=== PATIENT | female | born 1960 | race American Indian/Alaskan Native ===

== ENCOUNTER 2017-07-28 07:08 | Emergency (ER) | payer OTHER ==
[2017-07-28] MEDS ORDERED: LIDOCAINE VISCOUS 2% PO ONE (09:51)
[2017-07-28] MEDS ORDERED: TORADOL IM ONE (09:51)
[2017-07-28] MEDS ORDERED: TYLENOL PO ONE (09:56)
--- NOTE | 2017-07-28 10:00 | Emergency Department Report ---
- General Chief Complaint: Upper Respiratory Infection Stated Complaint: FLU SX Time Seen by Provider: 07/28/17 09:38 Source: patient Mode of arrival: Ambulatory Limitations: No Limitations - History of Present Illness Initial Comments: This is a 56-year-old female nontoxic, well nourished in appearance, no acute signs of distress presents to the ED with c/o of fever, chills, frontal sinus pain, productive cough, rhinorrhea and nasal congestion 2 days. Patient describes productive cough as yellow mucus production. Patient denies any recent travels, long car rides, or recent hospital stays. Denies any calf pain or calf tenderness. Patient denies any hemoptysis, chest pain, shortness of breath, difficulty breathing, back pain, abdominal pain, pelvic pain, numbness, tingling, nausea or vomiting. Patient denies headache or stiff neck. Patient denies any allergies. Past medical history includes diabetes, arthritis and hypertension. MD Complaint: fever, cough, sore throat, rhinorrhea, nasal congestion, sinus pain -: days(s) (3) Severity: mild Severity scale (0 -10): 8 Quality: aching Consistency: constant Improves With: nothing Worsens With: nothing Associated Symptoms: fever, chills, headache (frontal sinus region), rhinorrhea , nasal congestion, sore throat, cough. denies: myalgias, diaphoresis, stiff neck, chest pain, shortness of breath, abdominal pain, nausea, vomiting, diarrhea, dysuria, rash, confusion, right sweats, weight loss, epistaxis, hoarseness, ear pain Treatments Prior to Arrival: none - Related Data Home Medications Medication Instructions Recorded Confirmed Last Taken Insulin NPH/Regular [NovoLIN 70/30] 35 unit SQ BIDDIAB 03/28/17 03/28/17 Lisinopril [Zestril] 40 mg PO DAILY 03/28/17 03/28/17 03/28/17 metFORMIN [Glucophage] 1,000 mg PO BID 03/28/17 03/28/17 03/28/17 Previous Rx's Medication Instructions Recorded Last Taken Type HYDROcodone/APAP 5-325 [[place] 1 each PO Q6HR PRN #12 tablet 03/29/17 Unknown Rx 5/325] Benzonatate [Tessalon Perle] 100 mg PO Q6H PRN #20 capsule 07/28/17 Unknown Rx Ibuprofen [Motrin] 600 mg PO Q8H PRN #30 tablet 07/28/17 Unknown Rx Nystas/Diphen/Xyl Visc/Mylanta 30 ml MM Q4H PRN 10 Days ml 07/28/17 Unknown Rx [Magic Mouthwash] Oseltamivir [Tamiflu] 75 mg PO BID #14 cap 07/28/17 Unknown Rx Allergies Allergy/AdvReac Type Severity Reaction Status Date / Time No Known Allergies Allergy Verified 05/05/15 11:11 ED Review of Systems ROS: Stated complaint: FLU SX Other details as noted in HPI Constitutional: chills, fever Eyes: denies: eye pain, eye discharge, vision change ENT: throat pain. denies: ear pain Respiratory: cough. denies: shortness of breath, wheezing Cardiovascular: denies: chest pain, palpitations Endocrine: no symptoms reported Gastrointestinal: denies: abdominal pain, nausea, diarrhea Genitourinary: denies: urgency, dysuria, discharge Musculoskeletal: denies: back pain, joint swelling, arthralgia Skin: denies: rash, lesions Neurological: denies: headache, weakness, paresthesias Psychiatric: denies: anxiety, depression Hematological/Lymphatic: denies: easy bleeding, easy bruising ED Past Medical Hx - Past Medical History Previous Medical History?: Yes Hx Hypertension: Yes (takes lisinopril 10mg qday) Hx Diabetes: Yes (take metformin 1000mg bid and NPH 20 units BID) Hx Arthritis: Yes Additional medical history: HIGH CHOLESTEROL - Surgical History Past Surgical History?: Yes Additional Surgical History: TUBAL LIGATION. POLYPS FROM THROAT REMOVED - Social History Smoking Status: Never Smoker Substance Use Type: Alcohol - Medications Home Medications: Home Medications Medication Instructions Recorded Confirmed Last Taken Type Insulin NPH/Regular [NovoLIN 70/30] 35 unit SQ BIDDIAB 03/28/17 03/28/17 History Lisinopril [Zestril] 40 mg PO DAILY 03/28/17 03/28/17 03/28/17 History metFORMIN [Glucophage] 1,000 mg PO BID 03/28/17 03/28/17 03/28/17 History HYDROcodone/APAP 5-325 [[place] 1 each PO Q6HR PRN #12 tablet 03/29/17 Unknown Rx 5/325] Benzonatate [Tessalon Perle] 100 mg PO Q6H PRN #20 capsule 07/28/17 Unknown Rx Ibuprofen [Motrin] 600 mg PO Q8H PRN #30 tablet 07/28/17 Unknown Rx Nystas/Diphen/Xyl Visc/Mylanta 30 ml MM Q4H PRN 10 Days ml 07/28/17 Unknown Rx [Magic Mouthwash] Oseltamivir [Tamiflu] 75 mg PO BID #14 cap 07/28/17 Unknown Rx ED Physical Exam - General Limitations: No Limitations General appearance: alert, in no apparent distress - Head Head exam: Present: atraumatic, normocephalic, normal inspection - Eye Eye exam: Present: normal appearance, PERRL, EOMI. Absent: scleral icterus, conjunctival injection, nystagmus, periorbital swelling, periorbital tenderness Pupils: Present: normal accommodation - ENT ENT exam: Present: mucous membranes moist, TM's normal bilaterally, normal external ear exam - Expanded ENT Exam Expanded Ear exam: Present: normal external inspection Mouth exam: Present: normal external inspection, tongue normal. Absent: drooling, trismus, muffled voice, tongue elevation, laceration Teeth exam: Present: normal inspection Throat exam: Positive: tonsillar erythema, other (Uvula midline. No abscess or swelling noted. ). Negative: tonsillomegaly, tonsillar exudate, R peritonsillar mass, L peritonsillar mass - Neck Neck exam: Present: normal inspection, full ROM. Absent: tenderness, meningismus, lymphadenopathy, thyromegaly - Respiratory Respiratory exam: Present: normal lung sounds bilaterally. Absent: respiratory distress, wheezes, rales, rhonchi, stridor, chest wall tenderness, accessory muscle use, decreased breath sounds, prolonged expiratory - Cardiovascular Cardiovascular Exam: Present: regular rate, normal rhythm, normal heart sounds. Absent: bradycardia, irregular rhythm, systolic murmur, diastolic murmur, rubs , gallop - GI/Abdominal GI/Abdominal exam: Present: soft, normal bowel sounds. Absent: distended, tenderness, guarding, rebound, rigid, diminished bowel sounds - Rectal Rectal exam: Present: deferred - Extremities Exam Extremities exam: Present: normal inspection, full ROM, normal capillary refill. Absent: tenderness, pedal edema, joint swelling, calf tenderness - Back Exam Back exam: Present: normal inspection, full ROM. Absent: tenderness, CVA tenderness (R), CVA tenderness (L), muscle spasm, paraspinal tenderness, vertebral tenderness, rash noted - Neurological Exam Neurological exam: Present: alert, oriented X3, CN II-XII intact, normal gait, reflexes normal - Psychiatric Psychiatric exam: Present: normal affect, normal mood - Skin Skin exam: Present: warm, dry, intact, normal color. Absent: rash - Other Other exam information: Negative Frontal sinus tenderness. ED Course Vital Signs 07/28/17 07/28/17 07/28/17 07:23 10:27 10:28 Temperature 100.4 F H Pulse Rate 90 Respiratory 16 18 18 Rate Blood Pressure 145/75 O2 Sat by Pulse 95 Oximetry - Reevaluation(s) Reevaluation #1: 07/28/17 10:01 Patient is speaking in full sentences with no signs of distress noted. ED Medical Decision Making - Medical Decision Making This is a 56-year-old female that presents with influenza B. Patient is stable and was examined by me. Chest x-ray has been obtained and dictated by radiologist within normal limits. Patient is notified of x-ray results with noted by the patient. Patient received lidocaine viscous which patient stated symptoms of sore throat is improving and subsided. Positive influenza B swab. Negative strep swab. Patient is discharge with tamiflu. Patient also received Tylenol and 30 mg IM of Toradol. Vital signs stable and patient is afebrile and normal heart rate prior to discharge. Patient was instructed Follow-up with a primary care doctor in 3-5 days or if symptoms worsen and continue return to emergency room as soon as possible. At time time of discharge, the patient does not seem toxic or ill in appearance. No acute signs of distress noted. Patient agrees to discharge treatment plan of care. No further questions noted by the patient. Critical care attestation.: If time is entered above; I have spent that time in minutes in the direct care of this critically ill patient, excluding procedure time. ED Disposition Clinical Impression: Influenza B Disposition: -01 TO HOME OR SELFCARE Is pt being admited?: No Does the pt Need Aspirin: No Condition: Stable Instructions: Oseltamivir (By mouth), Influenza (ED) Additional Instructions: Follow-up with a primary care doctor in 3-5 days or if symptoms worsen and continue return to emergency room as soon as possible. Increase rest and hydration as much as possible. Take Motrin as prescribed during fever episode. Prescriptions: Benzonatate [Tessalon Perle] 100 mg PO Q6H PRN #20 capsule PRN Reason: Cough Ibuprofen [Motrin] 600 mg PO Q8H PRN #30 tablet PRN Reason: Fever Nystas/Diphen/Xyl Visc/Mylanta [Magic Mouthwash] 30 ml MM Q4H PRN 10 Days ml PRN Reason: Sore Throat Oseltamivir [Tamiflu] 75 mg PO BID #14 cap Referrals: PRIMARY CAREMD [Primary Care Provider] - 3-5 Days KIKA LIN MD [Staff Physician] - 3-5 Days [facility] [Outside] - 3-5 Days [facility] [Outside] - 3-5 Days Forms: Work/School Release Form(ED)
--- NOTE | 2017-07-28 10:10 | XRay Report ---
ROUTINE CHEST, TWO VIEWS: HISTORY: Cough. The trachea, heart, mediastinal contour, lung hamilton and bony thorax are unremarkable. IMPRESSION: Unremarkable chest x-ray.
[2017-07-28 11:48] VITALS: BP 124/78
== END 2017-07-28 11:47 | disposition home or self-care (01) ==
LOC: ED 07:08
DX: J11.1 Influenza due to unidentified influenza virus with other respiratory manifestations (principal); I10 Essential (primary) hypertension; E11.9 Type 2 diabetes mellitus without complications; M19.90 Unspecified osteoarthritis, unspecified site; E78.00 Pure hypercholesterolemia, unspecified; Z79.4 Long term (current) use of insulin
CPT/HCPCS: 71046; 87116; 87400; 87430; 96372; 99283; J1885

== ENCOUNTER 2017-11-18 10:45 | Day surgery (SDC) | payer OTHER ==
[2017-11-18] MEDS ORDERED: NACL 0.9% 1000 ML 1,000 ML ONE (11:45)
[2017-11-18] MEDS ORDERED: HumuLIN R IV ONE (12:36)
--- NOTE | 2017-11-18 12:36 | Anesthesia Consultation ---
Anesthesia Consult and Med Hx Date of service: 11/18/17 - Airway Anesthetic Teeth Evaluation: Good ROM Head & Neck: Adequate Mental/Hyoid Distance: Adequate Mallampati Class: Class III Intubation Access Assessment: Possibly Difficult - Pre-Operative Health Status ASA Pre-Surgery Classification: ASA3 Proposed Anesthetic Plan: MAC - Cardiovascular System Hx Hypertension: Yes - Gastrointestinal Hx Gastroesophageal Reflux Disease: Yes - Endocrine Hx Non-Insulin Dependent Diabetes: Yes - Other Systems Hx Obesity: Yes (BMI 35.9)
--- NOTE | 2017-11-18 12:36 | Anesthesia Day of Surgery ---
Anesthesia Day of Surgery - Day of Surgery Patient Examined: Yes Patient H&P Reviewed: Yes Patient is NPO: Yes
[2017-11-18] MEDS ORDERED: HumuLIN R SUB-Q ONE (12:40)
[2017-11-18] MEDS ORDERED: NACL 0.9% 1000 ML 1,000 ML IV SCH (13:00)
[2017-11-18] MEDS ORDERED: XYLOCAINE MPF 2% ONE (13:00)
[2017-11-18] MEDS ORDERED: DIPRIVAN 10 MG/ML IV ONE ×8 (13:08→14:29)
--- NOTE | 2017-11-18 13:19 | Post Anesthesia Evaluation ---
- Post Anesthesia Evaluation Patient Participated: Yes Airway Patent: Yes Stable Respiratory Function: Yes Nausea/Vomiting: No Temp > 96.8F: Yes Pain Manageable: Yes Adequeate Hydration: Yes Anesthesia Complications: No
[2017-11-18] MEDS ORDERED: ADRENALIN ONE (13:46)
[2017-11-18] MEDS ORDERED: VERSED IV ONE (14:29)
[2017-11-18] MEDS ORDERED: ADRENALINE P/F IV ONE (14:30)
[2017-11-18] MEDS ORDERED: WATER FOR IRRIG STERILE ONE (14:38)
[2017-11-18] MEDS ORDERED: ANCEF/STERILE WATER 2 GM/20 ML 2 GM/20 ML SYRINGE IV ONE (14:50)
[2017-11-18] MEDS ORDERED: ZOFRAN IV ONE (15:27)
[2017-11-18 15:58] VITALS: BP 145/75
--- NOTE | 2017-11-18 16:51 | Operative Report ---
Operative Report Operative Report: Date: 11/18/2017 Procedure: Colonoscopy with multiple endoscopic mucosal resections, ( with submucosal injection, multiple snare polypectomies, multiple Hemoclip applications,) polyp ablation hot biopsy polypectomy using avulsion technique. Attending physician: Kirill Harrison MD Core Inspector: Kirill Harrison MD Indication: Patient is a 57-year-old female who presents for screening colonoscopy. A colonoscopy serves to evaluate patient for colorectal cancer screening. This is patient's index colonoscopy. Consent: Informed consent was obtained after advising the patient and family regarding nature of this procedure, its indications, potential benefits as well as possible complications including but not limited to bleeding perforation and adverse reaction to medication, infection as well as other cardiopulmonary complications. An informed written and verbal consent was then obtained after due opportunity was provided for questions and answers. Monitoring: Patient was monitored continuously with pulse oximetry and electrocardiographic recordings as well as blood pressure recordings. Vital signs remained stable throughout this procedure with no untoward events. Preoperative assessment: Patient was assessed immediately prior to this procedure for capacity to tolerate monitored anesthesia care and moderate sedation as well as general anesthesia. Patient's ASA classification is 2, Mallampati class is 2, Hyomental distance is 3. Instrument: Cantimer video colonoscope Medications: Propofol given intravenously in divided doses. For details please refer to anesthesia records. Description of procedure: Patient was placed in the left lateral decubitus position after achieving sedation, a digital rectal examination was performed following which the colonoscope was introduced into the anal verge and advanced to the cecum which was identified by the cecal valve, the appendiceal orifice, as well as by the cecal strap and direct transillumination. The colonoscope was subsequently withdrawn with careful inspection of all mucosal surfaces. Patient tolerated this procedure well and was subsequently taken to the recovery room. The preparation was fair. The following findings were noted. Findings: Beginning in the cecum, Patient had a 2 cm flat polyp with a mucous patch and endoscopic characteristics of possible serrated adenoma. This was elevated with submucosal injection of eleview, (hetastarch), it was then removed by endoscopic mucosal resection using snare electrocautery. The defect in the submucosal space, was then closed with 2 hemoclips. Adjacent to this on the opposite end of the cecum and extending into the distal aspect of the ascending colon, was a multilobulated flat polyp that had a serpiginous splay, over a wide margin. Endoscopically, this measured about 3 cm. It was injected sequentially with eleview, to elevate it. Additionally, 1:[id number] epinephrine injection was also injected into the base because of some oozing of blood. Sequentially, the polyp was then removed by endoscopic mucosal resection with snare electrocautery. The exposed submucosal space was further ablated at the edges. Additionally, argon plasma coagulation was then applied over the polypectomy site. The edges of the polyp, were further treated endoscopically with a hot biopsy forcep with avulsion, of any residual or suspected polyp piece. After complete removal and ablation of the site, a large submucosal defect was then exposed. This was then closed sequentially, using multiple hemoclips. 5 clips were applied over this site to close the defect. Also, in the ileocecal valve,/cecum there was a 1.5 cm polyp again which was flat. This was injected submucosally with normal saline and removed by snare electrocautery. The edges of the polyp with further avulsed. In addition there was an adjacent flat cecal smaller polyp. This measured approximately 1 cm. It was removed by hot biopsy forceps polypectomy, using the avulsion technique. There was an ascending colon polyp measuring approximately 1.5 cm. It was semi-pedunculated. It was removed by snare electrocautery and retrieved. There was an adjacent sessile 1 cm polyp in the ascending colon which again was removed by snare electrocautery and retrieved. There was some scattered diverticula seen in the ascending colon and descending colon and the sigmoid colon. There are some scattered retained stool seen in the sigmoid colon as well and also in the descending colon. The procedure was technically difficult and prolonged. Duration of the procedure is greater than 2 hours. On the retroflex view at the anal verge, patient had internal hemorrhoids. Impression: Technically difficult long procedure. Multiple cecal polyps, status post endoscopic mucosal resection, (submucosal injection of eleview , and subsequent snare polypectomy with closure of submucosal defect which multiple hemoclips.) Ablation of polyp site and Hemoclip application. Cecal polyp status post hot biopsy polypectomy with avulsion technique. Multiple ascending colon polyps status post snare polypectomy. Diverticulosis of the colon. Internal hemorrhoids. Plan: Follow pathology report. Because of procedure was deemed high risk given the endoscopic intervention, patient was given antibiotics intraprocedure. Patient further advised to stay on clear liquid diet today. High-fiber diet. A repeat colonoscopy should be done in 3-6 months although if pathology suggests invasive cancer, patient will require a right hemicolectomy.
--- NOTE | 2017-11-18 19:11 | Discharge Summary ---
Short Stay Discharge Plan Activity: advance as tolerated Weight Bearing Status: Weight Bear as Tolerated Diet: clear liquids Additional Instructions: Post Sedation D/C Instructions When you return home you may resume your regular diet unless otherwise directed. -Go directly home from the hospital and rest quietly. You may resume normal activities tomorrow. -Do NOT drive, return to work, operate any machinery or make any important personal or business decisions today -Do NOT drink any alcohol or take nerve or sleeping drugs. They add to the effects of the medicine still present in your body. CALL FOR F/U APPT. FOLLOW SURGEON INSTRUCTIONS. Follow up with: PRIMARY CARE [Primary Care Provider] - 7 Days
== END 2017-11-18 16:00 | disposition home or self-care (01) ==
LOC: GIO 10:45
PROVIDERS: ATTEND Internal Medicine Gastroenterology
DX: Z12.11 Encounter for screening for malignant neoplasm of colon (principal); D12.0 Benign neoplasm of cecum; D12.2 Benign neoplasm of ascending colon; K57.30 Diverticulosis of large intestine without perforation or abscess without bleeding; K21.9 Gastro-esophageal reflux disease without esophagitis; K64.8 Other hemorrhoids; K59.00 Constipation, unspecified; I10 Essential (primary) hypertension; E11.9 Type 2 diabetes mellitus without complications; E66.9 Obesity, unspecified; Z68.35 Body mass index [BMI] 35.0-35.9, adult; Z79.899 Other long term (current) drug therapy
CPT/HCPCS: 45381; 45384; 45385; 45390; 82962; 88305; J0171; J0690; J2250; J2405; J2704; J7030; J1815

== ENCOUNTER 2018-12-29 08:36 | Day surgery (SDC) | payer OTHER ==
[~2018-12-29 08:36] MED LIST: LACTATED RINGERS 1,000 ML IV SCH; VERSED IV NR
[2018-12-29] MEDS ORDERED: TRANSDERM-SCOP TD NR (09:00)
[2018-12-29] MEDS ORDERED: HumuLIN R IV NR (09:00)
[2018-12-29] MEDS ORDERED: DIPRIVAN 10 MG/ML IV ONE (09:59)
[2018-12-29] MEDS ORDERED: ZOFRAN ONE (10:07)
[2018-12-29] MEDS ORDERED: XYLOCAINE MPF 2% ONE (10:07)
[2018-12-29] MEDS ORDERED: DECADRON ONE (10:07)
[2018-12-29] MEDS ORDERED: DILAUDID IV PRN (10:28)
--- NOTE | 2018-12-29 10:30 | Anesthesia Day of Surgery ---
Anesthesia Day of Surgery - Day of Surgery Patient Examined: Yes Patient H&P Reviewed: Yes Patient is NPO: Yes
--- NOTE | 2018-12-29 10:30 | Anesthesia Consultation ---
Anesthesia Consult and Med Hx Date of service: 12/29/18 - Airway Anesthetic Teeth Evaluation: Good ROM Head & Neck: Adequate Mental/Hyoid Distance: Adequate Mallampati Class: Class III Intubation Access Assessment: Possibly Difficult - Pulmonary Exam CTA: Yes - Cardiac Exam Cardiac Exam: RRR - Pre-Operative Health Status ASA Pre-Surgery Classification: ASA3 Proposed Anesthetic Plan: General - Pulmonary Hx Smoking: No Hx Asthma: Yes - Cardiovascular System Hx Hypertension: Yes Hx Heart Attack/AMI: No - Central Nervous System CVA: No - Gastrointestinal Hx Gastroesophageal Reflux Disease: Yes (controlled) - Endocrine Hx Renal Disease: No Hx Liver Disease: No Hx Insulin Dependent Diabetes: Yes Hx Thyroid Disease: No - Other Systems Hx Obesity: Yes - Additional Comments Anesthesia Medical History Comments: Hx PONV.
[2018-12-29] MEDS ORDERED: SILVER NITRATE TP ONE (10:53)
[2018-12-29] MEDS ORDERED: SUBLIMAZE ONE (11:17)
[2018-12-29] MEDS ORDERED: TORADOL ONE (11:39)
[2018-12-29] MEDS ORDERED: NACL 0.9% IR ONE (11:41)
--- NOTE | 2018-12-29 13:00 | Operative Report ---
Operative Report Operative Report: Preoperative diagnosis: 1. Postmenopausal uterine bleeding. 2. Thickened endometrium. Postoperative diagnosis: same as preoperative diagnosis. Procedure: 1. Hysteroscopy. 2. D&C Surgeon: Dr. Mason Director Of Quality: none Anesthesia: IV sedation with MAC. EBL: minimal IVF: RL 1 liter Complications: none Procedure details: The risks, benefits, and alternatives of the procedure were discussed in detail with the patient which included but not limited to infection, hemorrhage requiring blood transfusion, and uterine perforation. The patient expressed understanding, her questions answered, and she gave informed consent. The patient was taken to the operating room with an IVF infusing Ringer's lactate. In the operating room, she was placed in the dorsal supine position and given IV sedation with MAC. Then, she was placed on the stirrups in a dorsal lithotomy position. The perineum vagina and cervix were washed and she was prepared and draped in the usual sterile fashion. Examination under anesthesia revealed normal external genitalia and vagina. The cervix was closed, long, posterior with mild bleeding at the os. The uterus was 8-week size, anteverted, mobile, the adnexae were nonpalpable. A weighted speculum was placed placed on the posterior vaginal wall. The anterior lip of the cervix was grasped with a single-tooth tenaculum. Endocervical curettage was done. The cervical os was dilated and the hysteroscope was introduced into the uterine cavity. It revealed thickened endometrial lining. The ostia were visualized. The hysteroscope was removed from the uterine cavity. A gentle curettage was performed until a gritty texture was noticed. The specimen which consisted of ECC, EMC was sent to pathology. The instruments were removed from the cervix and vagina. The count of laps, needles, sponges, and instrument were correct 2. The patient tolerated the procedure well. She was awakened from the anesthesia and taken to the recovery room in a stable condition.
[2018-12-29 13:51] VITALS: BP 138/80
== END 2018-12-29 13:30 | disposition home or self-care (01) ==
LOC: OR 08:36
PROVIDERS: ATTEND Obstetrics & Gynecology
DX: N95.0 Postmenopausal bleeding (principal); R93.89 Abnormal findings on diagnostic imaging of other specified body structures; E11.9 Type 2 diabetes mellitus without complications; I10 Essential (primary) hypertension; E78.00 Pure hypercholesterolemia, unspecified; K21.9 Gastro-esophageal reflux disease without esophagitis; M19.90 Unspecified osteoarthritis, unspecified site; J45.909 Unspecified asthma, uncomplicated; E66.9 Obesity, unspecified; Z98.51 Tubal ligation status; Z98.890 Other specified postprocedural states; Z79.899 Other long term (current) drug therapy; Z79.84 Long term (current) use of oral hypoglycemic drugs; Z79.4 Long term (current) use of insulin
CPT/HCPCS: 58558; 82962; 88305; 88341; 88342; A4217; J1100; J1885; J2405; J2704; J3010; J7120; J1815

== ENCOUNTER 2019-01-24 10:30 | Emergency (ER) | payer SELFPAY ==
[2019-01-24 10:36] VITALS: BP 123/64
--- NOTE | 2019-01-24 10:54 | Emergency Department Report ---
<GIUSEPPE WILEY T - Last Filed: 01/24/19 11:47> ED Lower Extremity HPI - General Chief Complaint: Extremity Injury, Lower Stated Complaint: LT KNEE INJURY Time Seen by Provider: 01/24/19 10:51 Source: patient Mode of arrival: Ambulatory Limitations: No Limitations - History of Present Illness Initial Comments: Patient reports having problems left knee but had a trip and fall landing on that knee a couple days ago worse pain. Pain worsens with movement and improves with rest though she states that he is given out on her couple times. Denies any distal numbness or tingling. Complaint: knee injury -: Sudden, days(s) (3) Injury: Knee: Left Type of Injury: blunt Severity: moderate Severity scale (0 -10): 5 Improves With: immobilization Worsens With: weight bearing Context: fall Associated Symptoms: able to partially bear weight. denies: numbness, tingling - Related Data Home Medications Medication Instructions Recorded Confirmed Last Taken Insulin NPH/Regular [NovoLIN 70/30] 35 unit SQ BIDDIAB 03/28/17 12/29/18 12/28/18 21:00 Lisinopril [Zestril] 40 mg PO DAILY 03/28/17 12/29/18 12/28/18 21:00 metFORMIN [Glucophage] 1,000 mg PO BID 03/28/17 12/29/18 12/28/18 21:00 Previous Rx's Medication Instructions Recorded Last Taken Type HYDROcodone/APAP 5-325 [Jakin 1 each PO Q6HR PRN #12 tablet 03/29/17 12/28/18 21:00 Rx 5/325] Benzonatate [Tessalon Perle] 100 mg PO Q6H PRN #20 capsule 07/28/17 12/28/18 21:00 Rx Ibuprofen [Motrin] 600 mg PO Q8H PRN #30 tablet 07/28/17 12/28/18 21:00 Rx Nystas/Diphen/Xyl Visc/Mylanta 30 ml MM Q4H PRN 10 Days ml 07/28/17 12/28/18 21:00 Rx [Magic Mouthwash] Oseltamivir [Tamiflu] 75 mg PO BID #14 cap 07/28/17 12/28/18 21:00 Rx Benzonatate [Tessalon Perles] 100 mg PO Q8HR PRN #20 capsule 07/19/18 12/28/18 21:00 Rx Ondansetron [Zofran Odt] 4 mg PO Q8HR PRN #20 tab.rapdis 07/19/18 12/28/18 21:00 Rx Naproxen [Naprosyn] 500 mg PO BID #20 tablet 01/24/19 Unknown Rx Allergies Allergy/AdvReac Type Severity Reaction Status Date / Time No Known Allergies Allergy Verified 05/05/15 11:11 ED Review of Systems Comment: All other systems reviewed and negative Musculoskeletal: as per HPI ED Past Medical Hx - Past Medical History Previous Medical History?: Yes Hx Hypertension: Yes Hx Heart Attack/AMI: No Hx Diabetes: Yes Hx GERD: Yes Hx Liver Disease: No Hx Renal Disease: No Hx Arthritis: Yes Hx Asthma: Yes Additional medical history: HIGH CHOLESTEROL - Surgical History Past Surgical History?: Yes Additional Surgical History: TUBAL LIGATION. POLYPS FROM THROAT REMOVED - Social History Smoking Status: Never Smoker - Medications Home Medications: Home Medications Medication Instructions Recorded Confirmed Last Taken Type Insulin NPH/Regular [NovoLIN 70/30] 35 unit SQ BIDDIAB 03/28/17 12/29/18 12/28/18 21:00 History Lisinopril [Zestril] 40 mg PO DAILY 03/28/17 12/29/18 12/28/18 21:00 History metFORMIN [Glucophage] 1,000 mg PO BID 03/28/17 12/29/18 12/28/18 21:00 History HYDROcodone/APAP 5-325 [Jakin 1 each PO Q6HR PRN #12 tablet 03/29/17 12/29/18 12/28/18 21:00 Rx 5/325] Benzonatate [Tessalon Perle] 100 mg PO Q6H PRN #20 capsule 07/28/17 12/28/18 21:00 Rx Ibuprofen [Motrin] 600 mg PO Q8H PRN #30 tablet 07/28/17 12/29/18 12/28/18 21:00 Rx Nystas/Diphen/Xyl Visc/Mylanta 30 ml MM Q4H PRN 10 Days ml 07/28/17 12/29/18 12/28/18 21:00 Rx [Magic Mouthwash] Oseltamivir [Tamiflu] 75 mg PO BID #14 cap 07/28/17 12/29/18 12/28/18 21:00 Rx Benzonatate [Tessalon Perles] 100 mg PO Q8HR PRN #20 capsule 07/19/18 12/28/18 21:00 Rx Ondansetron [Zofran Odt] 4 mg PO Q8HR PRN #20 tab.rapdis 07/19/18 12/29/18 12/28/18 21:00 Rx Naproxen [Naprosyn] 500 mg PO BID #20 tablet 01/24/19 Unknown Rx ED Physical Exam - General Limitations: No Limitations General appearance: alert, in no apparent distress - Head Head exam: Present: atraumatic, normocephalic - Eye Eye exam: Present: normal appearance - ENT ENT exam: Present: mucous membranes moist - Neck Neck exam: Present: normal inspection - Respiratory Respiratory exam: Absent: respiratory distress - Cardiovascular Cardiovascular Exam: Absent: systolic murmur, diastolic murmur, rubs, gallop - Extremities Exam Extremities exam: Present: normal inspection, full ROM, tenderness (L knee), normal capillary refill, other (CMS intact) - Back Exam Back exam: Present: normal inspection - Neurological Exam Neurological exam: Present: alert, oriented X3 - Psychiatric Psychiatric exam: Present: normal affect, normal mood - Skin Skin exam: Present: warm, dry, intact, normal color. Absent: rash ED Lower Extremity MDM - Radiology Data Radiology results: report reviewed small effusion degen change no fx - Medical Decision Making knee injury no fx pily applied fu ortho - Differential Diagnosis contusion, sprain, fx ED Disposition Clinical Impression: Knee pain, acute Disposition: DC-01 TO HOME OR SELFCARE Is pt being admited?: No Condition: Good Instructions: Arthralgia (ED) Prescriptions: Naproxen [Naprosyn] 500 mg PO BID #20 tablet Referrals: HUMA SEVILLA MD [Staff Physician] - 3-5 Days Time of Disposition: 11:49 <NANCY OSEI - Last Filed: 02/12/19 05:56> ED Review of Systems ROS: Stated complaint: LT KNEE INJURY Other details as noted in HPI ED Course Vital Signs 01/24/19 10:35 Temperature 98 F Pulse Rate 71 Respiratory 20 Rate Blood Pressure 123/64 O2 Sat by Pulse 98 Oximetry Critical care attestation.: If time is entered above; I have spent that time in minutes in the direct care of this critically ill patient, excluding procedure time. ED Disposition Is pt being admited?: No
--- NOTE | 2019-01-24 11:43 | XRay Report ---
Left knee 4 views INDICATION: Left knee pain following injury IMPRESSION: Small left knee effusion. No fracture or subluxation. Moderate to severe tricompartmental degenerative changes. Signer Name: Leighton Suresh MD Signed: 01/24/2019 11:39 AM Workstation Name: [id number]
== END 2019-01-24 12:11 | disposition home or self-care (01) ==
LOC: ED 10:30
DX: M25.562 Pain in left knee (principal); I10 Essential (primary) hypertension; E11.9 Type 2 diabetes mellitus without complications; K21.0 Gastro-esophageal reflux disease with esophagitis; M19.90 Unspecified osteoarthritis, unspecified site; E78.00 Pure hypercholesterolemia, unspecified; J45.909 Unspecified asthma, uncomplicated; Z98.51 Tubal ligation status; Z79.4 Long term (current) use of insulin; Z79.899 Other long term (current) drug therapy; W01.0XXA Fall on same level from slipping, tripping and stumbling without subsequent striking against object, initial encounter; Y93.89 Activity, other specified; Y92.89 Other specified places as the place of occurrence of the external cause; Y99.8 Other external cause status
CPT/HCPCS: 99283

== ENCOUNTER 2019-03-05 06:33 | Inpatient (IN) | payer OTHER ==
--- NOTE | 2019-03-02 10:19 | Anesthesia Consultation ---
Anesthesia Consult and Med Hx Date of service: 03/05/19 - Airway Anesthetic Teeth Evaluation: Good ROM Head & Neck: Adequate Mental/Hyoid Distance: Adequate Mallampati Class: Class II Intubation Access Assessment: Probably Good - Pre-Operative Health Status ASA Pre-Surgery Classification: ASA3 Proposed Anesthetic Plan: General (pt request; refuses SAB) Nerve Block: AC - Pre-Anesthesia Comment Pre-Anesthesia Comments: PONV-pt requests scopolamine patch - Pulmonary Hx Smoking: No Hx Asthma: Yes (INHALER PRN) Hx Sleep Apnea: No (SALLY PRE SCREEN HIGH RISK) - Cardiovascular System Hx Hypertension: Yes (X 12 YRS) Hx Coronary Artery Disease: No (NST 5 years ago-ok per pt) Hx Heart Attack/AMI: No - Central Nervous System CVA: No - Gastrointestinal Hx Gastroesophageal Reflux Disease: Yes (controlled) - Endocrine Hx Renal Disease: No Hx Liver Disease: No Hx Insulin Dependent Diabetes: Yes Hx Non-Insulin Dependent Diabetes: Yes Hx Thyroid Disease: No - Other Systems Hx Cancer: No Hx Obesity: Yes
[2019-03-02 10:26] LABS: Basophils % (Auto) 0.6 % (0.0-1.8); Eosinophils # (Auto) 0.1 K/mm3 (0.0-0.4); Eosinophils % (Auto) 1.3 % (0.0-4.3); Hematocrit 35.7 % (30.3-42.9); Hemoglobin 11.9 gm/dl (10.1-14.3); Lymphocytes # (Auto) 1.3 K/mm3 (1.2-5.4); Lymphocytes % (Auto) 26.3 % (13.4-35.0); Mean Corpuscular HGB Conc 34 % (30-34); Mean Corpuscular Volume 80 fl (79-97); Monocytes # (Auto) 0.4 K/mm3 (0.0-0.8); Monocytes % (Auto) 8.7 % (0.0-7.3); Platelet Count 327 K/mm3 (140-440); Red Blood Count 4.43 M/mm3 (3.65-5.03); Red Cell Distribution Width 14.5 % (13.2-15.2)
[2019-03-02 10:36] LABS: INR 0.98 (0.87-1.13)
[2019-03-02 10:38] LABS: Partial Thromboplastin Time 29.2 Sec. (24.2-36.6)
[2019-03-02 11:00] LABS: Alanine Aminotransferase 19 units/L (7-56); Albumin 3.9 g/dL (3.9-5); BUN/Creatinine Ratio 25; Blood Urea Nitrogen 15 mg/dL (7-17); Calcium 9.5 mg/dL (8.4-10.2); Hemolysis Index 6
[~2019-03-05 06:33] MED LIST changes: +ANCEF/STERILE WATER 2 GM/20 ML 2 GM/20 ML SYRINGE IV NR; -LACTATED RINGERS 1,000 ML IV SCH; +NEURONTIN PO NR; +SUBLIMAZE IV PRN; +TRANSDERM-SCOP TD NR
[2019-03-05] MEDS ORDERED: SUBLIMAZE IV PRN (07:33)
--- NOTE | 2019-03-05 07:33 | Anesthesia Day of Surgery ---
Anesthesia Day of Surgery - Day of Surgery Patient Examined: Yes Patient H&P Reviewed: Yes Patient is NPO: Yes
[2019-03-05] MEDS ORDERED: TORADOL ONE (07:41)
[2019-03-05] MEDS ORDERED: TRANEXAMIC ACID ONE (07:41)
[2019-03-05] MEDS ORDERED: MORPHINE ONE (07:41)
[2019-03-05] MEDS ORDERED: NACL 0.9% 0 ML ONE (07:41)
[2019-03-05] MEDS ORDERED: MARCAINE 0.5% INFILTRATI ONE (07:42)
[2019-03-05] MEDS ORDERED: NACL 0.9% 100 ML ONE (07:42)
[2019-03-05] MEDS: LACTATED RINGERS 1,000 ML IV SCH (07:45)
[2019-03-05] MEDS ORDERED: MARCAINE-EPI 0.25%-1:200,000 INFILTRATI ONE (07:46)
[2019-03-05] MEDS ORDERED: ZEMURON IV ONE (07:50)
[2019-03-05] MEDS ORDERED: SUBLIMAZE ONE ×2 (07:50→11:03)
[2019-03-05] MEDS ORDERED: XYLOCAINE MPF 2% ONE (07:50)
[2019-03-05] MEDS ORDERED: ZOFRAN ONE (07:50)
[2019-03-05] MEDS ORDERED: ROBINUL ONE (07:50)
[2019-03-05] MEDS ORDERED: BLOXIVERZ ONE (07:50)
[2019-03-05] MEDS ORDERED: DIPRIVAN 10 MG/ML IV ONE (07:50)
[2019-03-05] MEDS ORDERED: DECADRON ONE (07:50)
[2019-03-05] MEDS ORDERED: BREVIBLOC IV ONE (08:36)
[2019-03-05] MEDS ORDERED: QUELICIN ONE (08:38)
[2019-03-05] MEDS ORDERED: WATER FOR IRRIG STERILE IR ONE (09:05)
[2019-03-05] MEDS ORDERED: NACL 0.9% IR ONE ×2 (09:05)
[2019-03-05] MEDS ORDERED: LACTATED RINGERS 1,000 ML ONE (10:38)
[2019-03-05] MEDS ORDERED: NORCO 5/325 PO PRN (11:49)
[2019-03-05] MEDS ORDERED: ZOFRAN IV PRN (11:49)
[2019-03-05] MEDS ORDERED: SODIUM CHLORIDE FLUSH SYRINGE 10 ML IV NR (12:00)
[2019-03-05] MEDS ORDERED: HumuLIN R ONE (12:01)
[2019-03-05] MEDS ORDERED: HumuLIN R SUB-Q ONE (12:02)
--- NOTE | 2019-03-05 12:04 | Procedure Note ---
Date of procedure: 03/05/19 Pre-op diagnosis: severe osteoarthritis left knee Post-op diagnosis: same Procedure: Left total knee arthroplasty Procedure The patient was brought to the or after the femoral nerve block and preoperative holding, she was placed in the or table in supine position following induction with Mac anesthesia the patient's left lower extremity was prepped and draped in the usual sterile manner. A timeout procedure was done to identify the patient and the correct operative site The leg was exsanguinated followed by insufflation of the pneumatic tourniquet to 300 mmHg. The midline incision was made centered over the patella this is taken down distally towards due to multiple medical incision was carried down sharply through skin and subcutaneous A medial parapatellar approach was used to gain access to the knee joint. The knee was flexed to 90 following routine examination revealed typical osteoarthritic changes where along the medial lateral compartments with peripheral osteophytes and bare bone in some places followinga large drill bit was used to enter the distal femoral canal following this the distal femoral cutting was applied approximately 8-9 mm of bone was resected next the attention was turned to the proximal tibia using the external alignment again 8-9 mL of proximal tibia was resected care was taken to protect the medial and lateral collateral ligaments the cruciate ligaments were sacrificed longus sizing of the femoral component was performed a # 5 femoral component was selected this was followed by application of the 4 in 1 cutting block care was taken to resect the anterior posterior as well as solution at this at this point in time the knee was sized A flexion and extension Of 10 mm was selected this was followed by application of the trial components the knee was then taken to or range of motion and was found to be stable following this fixation holes were applied to both the distal femur and proximal tibia care was taken to remove the medial lateral menisci as well as any excess bone and soft tissue debris the knee was then copiously irrigated using pulse lavage The bone cement was mixed the bone bleeding surfaces were wiped dry using sterile gauze for menisci tibial component was inserted using the cement technique the 10 mm polyethylene spacer was applied and secured this was followed by placement of the femoral component again excess cement was removed the knee was then held in flexion ostomy extens ion until the cement hardened following hardening of cement again a second look was performed and the residual soft tissue N cement debris were removed at this time the knee was then taken through a range of motion and was found to be stable next the medial patellar retinaculum incision was repaired using #1 Vicryl in interrupted [id number] suture pattern the subcutaneous and skin were closed in a routine manner. Dressings were applied the patient tolerated the procedure the retinal complications he was then taken to postanesthesia recovery Anesthesia: MAC, regional Surgeon: HUMA SEVILLA Conference Services Director: TIMOTHY FUENTES Estimated blood loss: 50-100ml Pathology: none Condition: stable Disposition: PACU
[2019-03-05] MEDS: MORPHINE IV PRN ×3 (13:45→21:57)
[2019-03-05] MEDS: HCTZ PO SCH (18:19)
[2019-03-05] MEDS ORDERED: APRESOLINE IV PRN (18:33)
--- NOTE | 2019-03-05 18:33 | Consultation ---
History of Present Illness - Reason for Consult Consult date: 03/05/19 Medical management of HTN, DM Requesting physician: HUMA HALL - History of Present Illness 58 YO Female with MO, DM, GERD, OA, HTN, CAD, Obesity Hypoventilation. Consult placed by Dr. Hall for medical management. Pt seen and evaluated upon arrival to her room. Pt resting in bed. Pt denies acute pain, shortness of breath, NVD, skin rash. Pt states that she feels comfortable, but is a little sleepy after the anesthesia. No reported nursing events. Past History Past Medical History: CAD, diabetes, GERD, hypertension Past Surgical History: total knee replacement Social history: single. denies: smoking, prescription drug abuse Family history: diabetes, hypertension Medications and Allergies Allergies Allergy/AdvReac Type Severity Reaction Status Date / Time No Known Allergies Allergy Verified 05/05/15 11:11 Home Medications Medication Instructions Recorded Confirmed Last Taken Type Insulin NPH/Regular [NovoLIN 70/30] 35 unit SQ QHS 03/28/17 03/05/19 03/04/19 09:00 History metFORMIN [Glucophage] 1,000 mg PO BID 03/28/17 03/05/19 03/04/19 09:00 History Albuterol Sulfate [Proventil Hfa] 2 puff IH PRN PRN 02/24/19 02/24/19 Unknown History AtorvaSTATin [Lipitor] 20 mg PO QHS 02/24/19 03/05/19 03/04/19 21:00 History Ibuprofen [Motrin] 800 mg PO PRN PRN 02/24/19 03/05/19 03/04/19 16:30 History Insulin NPH Hum/Reg Insulin Hm 40 unit SQ QAM 02/24/19 03/05/19 03/04/19 09:00 History [Relion Novolin 70-30 Vial] glipiZIDE [Glucotrol] 10 mg PO BID 02/24/19 03/05/19 03/04/19 18:00 History hydroCHLOROthiazide [HCTZ] 25 mg PO QDAY 02/24/19 03/05/19 03/04/19 09:00 History Active Meds: Active Medications Acetaminophen/Hydrocodone Bitart ([place] 5/325) 1 each PO Q6H PRN PRN Reason: Pain, Moderate (4-6) Last Admin: 03/05/19 16:07 Dose: 1 each Documented by: Celecoxib (Celebrex) 200 mg PO PREOP NR Stop: 03/05/19 23:01 Last Admin: 03/05/19 07:45 Dose: 200 mg Documented by: Enoxaparin Sodium (Lovenox) 40 mg SUB-Q QDAY GILDA Fentanyl (Sublimaze) 100 mcg IV ONCE PRN PRN Reason: sedation for nerve block Last Admin: 03/05/19 07:49 Dose: 100 mcg Documented by: Fentanyl (Sublimaze) 50 mcg IV Q5MIN PRN PRN Reason: Pain , Severe (7-10) Stop: 03/05/19 22:00 Last Admin: 03/05/19 12:16 Dose: 50 mcg Documented by: Gabapentin (Neurontin) 300 mg PO PREOP NR Stop: 03/05/19 23:00 Last Admin: 03/05/19 07:45 Dose: 300 mg Documented by: Hydrochlorothiazide (Hctz) 25 mg PO QDAY GILDA Last Admin: 03/05/19 18:19 Dose: 25 mg Documented by: Lactated Ringer's (Lactated Ringers) 1,000 mls @ 100 mls/hr IV DIRECT GILDA Last Admin: 03/05/19 07:45 Dose: 100 mls/hr Documented by: Cefazolin Sodium (Ancef/Sterile Water 2 Gm/20 Ml) 2 gm in 20 mls @ 80 mls/hr IV PREOP NR; Protocol Stop: 03/05/19 23:59 Midazolam HCl (Versed) 2 mg IV PREOP NR Stop: 03/05/19 23:01 Last Admin: 03/05/19 07:48 Dose: 2 mg Documented by: Morphine Sulfate (Morphine) 2 mg IV Q4H PRN PRN Reason: Pain, Moderate (4-6) Last Admin: 03/05/19 13:45 Dose: 2 mg Documented by: Morphine Sulfate (Morphine) 4 mg IV Q4H PRN PRN Reason: Pain , Severe (7-10) Last Admin: 03/05/19 18:14 Dose: 4 mg Documented by: Ondansetron HCl (Zofran) 4 mg IV Q8H PRN PRN Reason: Nausea And Vomiting Scopolamine (Transderm-Scop) 1 each TD PREOP NR Stop: 03/05/19 23:01 Last Admin: 03/05/19 07:45 Dose: 1 each Documented by: Sodium Chloride (Sodium Chloride Flush Syringe 10 Ml) 10 ml IV PRN NR Stop: 03/06/19 11:59 Zolpidem Tartrate (Ambien) 5 mg PO QHS PRN PRN Reason: Sleep Review of Systems All systems: negative Constitutional: other (chronic knee pain) Exam - Constitutional Vitals: Temp Pulse Resp BP Pulse Ox 96.6 F L 102 H 14 207/97 100 03/05/19 11:12 03/05/19 17:17 03/05/19 12:45 03/05/19 17:17 03/05/19 12:45 General appearance: Present: mild distress, obese - EENT Eyes: Present: PERRL ENT: hearing intact, clear oral mucosa - Neck Neck: Present: supple, normal ROM - Respiratory Respiratory effort: normal Respiratory: bilateral: CTA - Cardiovascular Heart Sounds: Present: S1 & S2. Absent: rub, click - Extremities Extremities: pulses symmetrical, No edema Peripheral Pulses: within normal limits - Abdominal General gastrointestinal: Present: soft, non-tender, non-distended, normal bowel sounds Female genitourinary: Present: normal - Integumentary Integumentary: Present: clear, warm, dry - Musculoskeletal Musculoskeletal: gait normal, strength equal bilaterally - Psychiatric Psychiatric: appropriate mood/affect, intact judgment & insight - Neurologic Neurologic: CNII-XII intact, moves all extremities Results - Labs CBC & Chem 7: 03/06/19 05:30 03/02/19 09:50 Labs: Abnormal lab results 03/05/19 03/05/19 Range/Units 11:44 12:47 POC Glucose 265 H 264 H (70-105) Assessment and Plan - Patient Problems (1) Obesity hypoventilation syndrome Current Visit: Yes Status: Acute Plan to address problem: supplemental oxygen, nebulizer therapy, pulse oximetry, NIPPV as clinically indicated, incentive spirometry, early ambulation (2) Diabetes Current Visit: No Status: Acute Plan to address problem: ADA diet, insulin, accu check, hypoglycemia protocol (3) Elevated cholesterol Current Visit: No Status: Acute Plan to address problem: Low cholesterol diet, low fat diet, risk factor reduction, (4) HTN (hypertension) Current Visit: No Status: Acute Qualifiers: Hypertension type: essential hypertension Qualified Code(s): I10 - Essential (primary) hypertension Plan to address problem: Monitor Bp q shift, continue prehospital medication, IV hydralazine prn, pain control,
[2019-03-05] MEDS ORDERED: D50W (25GM) Syringe IV PRN (18:35)
[2019-03-06] MEDS: HumaLOG SUB-Q SCH ×4 (00:23→18:29)
[2019-03-06] MEDS: NORCO 5/325 PO PRN ×4 (00:24→17:53)
[2019-03-06] MEDS: LACTATED RINGERS 1,000 ML IV SCH (02:26)
[2019-03-06 05:41] LABS: Hematocrit 32.1 % (30.3-42.9); Hemoglobin 10.7 gm/dl (10.1-14.3)
[2019-03-06] MEDS: HCTZ PO SCH ×2 (09:01→16:53)
[2019-03-06] MEDS: LOVENOX SUB-Q SCH (09:01)
[2019-03-06] MEDS: MORPHINE IV PRN ×4 (09:58→20:35)
--- NOTE | 2019-03-06 12:40 | Progress Note ---
Assessment and Plan Status post left total knee replacement postop day 1 Plan begin physical therapy continue observation Subjective Date of service: 03/06/19 Interval history: Complaining of incisional pain only was okay Objective Vital signs: Vital Signs - 12hr 03/06/19 03/06/19 03/06/19 04:08 06:21 08:41 Temperature 99.2 F 98.2 F Pulse Rate 96 H 86 Respiratory 20 19 18 Rate Blood Pressure 141/78 Blood Pressure 160/76 [Left] O2 Sat by Pulse 98 95 Oximetry Incision: healing, clean and dry Weight bearing status: as tolerated - Labs CBC & BMP: 03/06/19 05:30 03/02/19 09:50 Labs: Abnormal lab results 03/05/19 03/05/19 03/06/19 Range/Units 12:47 18:58 00:16 POC Glucose 264 H 226 H 215 H (70-105) 03/06/19 03/06/19 Range/Units 05:44 11:47 POC Glucose 220 H 248 H (70-105)
--- NOTE | 2019-03-06 15:40 | XRay Report ---
Left knee, 3 views INDICATION: postop evaluation. COMPARISON: None. IMPRESSION: Total left knee arthroplasty has been performed since 01/24/2019. The hardware appears we ll applied. No evidence for fracture or bone lesion. Diffuse anterior soft tissue swelling and gas i s consistent with recent surgery. Signer Name: Beltran Humphreys Jr, MD Signed: 03/06/2019 3:35 PM Workstation Name: [id number]
--- NOTE | 2019-03-06 15:54 | Progress Note ---
Assessment and Plan (1) Obesity hypoventilation syndrome Current Visit: Yes Status: Acute Plan to address problem: supplemental oxygen, nebulizer therapy, pulse oximetry, NIPPV as clinically indicated, incentive spirometry, early ambulation (2) Diabetes Current Visit: No Status: Acute Plan to address problem: ADA diet, insulin, accu check, hypoglycemia protocol (3) Elevated cholesterol Current Visit: No Status: Acute Plan to address problem: Low cholesterol diet, low fat diet, risk factor reduction, (4) HTN (hypertension) Current Visit: No Status: Acute Qualifiers: Hypertension type: essential hypertension Qualified Code(s): I10 - Nadeem gallo (primary) hypertension Plan to address problem: Monitor Bp q shift, continue prehospital medication, IV hydralazine prn, pain control, (5) S/p TKA Doing well Subjective Date of service: 03/06/19 Principal diagnosis: S/p TKA Interval history: Post op doing well Objective - Constitutional Vitals: Vital Signs - 12hr 03/06/19 03/06/19 03/06/19 04:08 06:21 08:41 Temperature 99.2 F 98.2 F Pulse Rate 96 H 86 Respiratory 20 19 18 Rate Blood Pressure 141/78 Blood Pressure 160/76 [Left] O2 Sat by Pulse 98 95 Oximetry General appearance: Present: no acute distress, well-nourished - EENT Eyes: PERRL, EOM intact ENT: hearing intact, clear oral mucosa Ears: bilateral: normal - Neck Neck: supple, normal ROM - Respiratory Respiratory effort: normal Respiratory: bilateral: CTA - Breasts Breasts: normal - Cardiovascular Rhythm: regular Heart Sounds: Present: S1 & S2. Absent: gallop, rub Extremities: pulses intact, No edema, normal color, Full ROM - Gastrointestinal General gastrointestinal: Present: soft, non-tender, non-distended, normal bowel sounds - Genitourinary Female genitourinary: normal - Integumentary Integumentary: clear, warm, dry - Musculoskeletal Musculoskeletal: 1, strength equal bilaterally - Neurologic Neurologic: moves all extremities - Psychiatric Psychiatric: memory intact, appropriate mood/affect, intact judgment & insight - Labs CBC & Chem 7: 03/06/19 05:30 03/02/19 09:50 Labs: Abnormal lab results 03/05/19 03/06/19 03/06/19 Range/Units 18:58 00:16 05:44 POC Glucose 226 H 215 H 220 H (70-105) 03/06/19 Range/Units 11:47 POC Glucose 248 H (70-105)
[2019-03-06] MEDS ORDERED: PROAIR IH PRN (15:56)
[2019-03-06] MEDS ORDERED: IBUPROFEN PO PRN (15:56)
[2019-03-06] MEDS ORDERED: PROVENTIL IH PRN (16:04)
[2019-03-06] MEDS: GLUCOTROL PO SCH (22:33)
[2019-03-06] MEDS: AMBIEN PO PRN (22:43)
[2019-03-07] MEDS: HumaLOG SUB-Q SCH ×4 (01:19→17:28)
[2019-03-07] MEDS: NORCO 5/325 PO PRN ×3 (03:31→17:28)
[2019-03-07] MEDS: LOVENOX SUB-Q SCH (09:49)
[2019-03-07] MEDS: GLUCOTROL PO SCH (09:49)
[2019-03-07] MEDS: HCTZ PO SCH (09:49)
[2019-03-07] MEDS: MORPHINE IV PRN (13:47)
--- NOTE | 2019-03-07 15:56 | Progress Note ---
Assessment and Plan (1) S/p TKA Doing well (2) Diabetes Current Visit: No Status: Acute Plan to address problem: ADA diet, insulin, accu check, hypoglycemia protocol (3) Elevated cholesterol Current Visit: No Status: Acute Plan to address problem: Low cholesterol diet, low fat diet, risk factor reduction, (4) HTN (hypertension) Current Visit: No Status: Acute Qualifiers: Hypertension type: essential hypertension Qualified Code(s): I10 - Essential (primary) hypertension Plan to address problem: Cont antihypertensives (5) Obesity hypoventilation syndrome Current Visit: Yes Status: Acute Plan to address problem: supplemental oxygen, nebulizer therapy, pulse oximetry, NIPPV as clinically indicated, incentive spirometry, early ambulation Discharge planning--Tomorrow as per Dr Hall to the patient Subjective Date of service: 03/07/19 Principal diagnosis: S/p TKA Interval history: Post op doing well--Had L TKA Objective - Constitutional Vitals: Vital Signs - 12hr 03/07/19 03/07/19 03/07/19 04:00 08:08 09:18 Temperature 100.4 F H 99.0 F Pulse Rate 105 H 101 H Respiratory 20 18 Rate Blood Pressure 137/77 Blood Pressure 157/92 [Left] O2 Sat by Pulse 98 97 99 Oximetry 03/07/19 11:35 Temperature 98.8 F Pulse Rate 95 H Respiratory 18 Rate Blood Pressure 148/87 Blood Pressure [Left] O2 Sat by Pulse 99 Oximetry General appearance: Present: no acute distress, well-nourished - EENT Eyes: PERRL, EOM intact ENT: hearing intact, clear oral mucosa Ears: bilateral: normal - Neck Neck: supple, normal ROM - Respiratory Respiratory effort: normal Respiratory: bilateral: CTA - Breasts Breasts: normal - Cardiovascular Rhythm: regular Heart Sounds: Present: S1 & S2. Absent: gallop, rub Extremities: pulses intact, No edema, normal color, Full ROM - Gastrointestinal General gastrointestinal: Present: soft, non-tender, non-distended, normal bowel sounds - Genitourinary Female genitourinary: normal - Integumentary Integumentary: clear, warm, dry - Musculoskeletal Musculoskeletal: 1, strength equal bilaterally - Neurologic Neurologic: moves all extremities - Psychiatric Psychiatric: memory intact, appropriate mood/affect, intact judgment & insight - Labs CBC & Chem 7: 03/06/19 05:30 03/02/19 09:50 Labs: Abnormal lab results 03/06/19 03/06/19 03/07/19 Range/Units 17:30 21:39 08:16 POC Glucose 268 H 270 H 201 H (70-105) 03/07/19 Range/Units 11:40 POC Glucose 223 H (70-105)
[2019-03-07] MEDS ORDERED: CEPHULAC PO ONE (17:00)
[2019-03-08] MEDS: GLUCOTROL PO SCH ×3 (00:17→22:22)
[2019-03-08] MEDS: HumaLOG SUB-Q SCH ×5 (00:19→22:43)
[2019-03-08] MEDS ORDERED: TYLENOL PO PRN (05:30)
[2019-03-08] MEDS: NORCO 5/325 PO PRN ×3 (09:01→22:23)
[2019-03-08] MEDS: HCTZ PO SCH (09:02)
[2019-03-08] MEDS: LOVENOX SUB-Q SCH (09:04)
[2019-03-08] MEDS: MORPHINE IV PRN ×2 (11:35→18:36)
--- NOTE | 2019-03-08 11:53 | Progress Note ---
Assessment and Plan Assessment and plan: 58F who was admitted for elective TKA S/p left TKA Doing well, cont PT Diabetes ADA diet, insulin, accu check, hypoglycemia protocol Elevated cholesterol Low cholesterol diet, low fat diet, risk factor reduction, HTN (hypertension) Cont antihypertensives Obesity hypoventilation syndrome supplemental oxygen, nebulizer therapy, pulse oximetry, NIPPV as clinically miguel cated, incentive spirometry, early ambulation Discharge planning--dc when ok by Dr Hall, her surgeon History Interval history: knee pain is controlled on pain meds no fever, cp, sob or vomiting Hospitalist Physical - Constitutional Vitals: Temp Pulse Resp BP Pulse Ox 98.4 F 89 18 155/78 93 03/08/19 07:45 03/08/19 07:45 03/08/19 07:45 03/08/19 07:45 03/08/19 08:56 General appearance: Present: no acute distress, well-nourished - EENT Eyes: Present: PERRL ENT: hearing intact - Neck Neck: Present: supple - Respiratory Respiratory effort: normal Respiratory: bilateral: CTA - Cardiovascular Rhythm: regular Heart Sounds: Present: S1 & S2 - Extremities Extremities: no ischemia Peripheral Pulses: within normal limits - Abdominal General gastrointestinal: soft - Integumentary Integumentary: Present: clear - Psychiatric Psychiatric: appropriate mood/affect, intact judgment & insight - Neurologic Neurologic: CNII-XII intact, moves all extremities Results - Labs CBC & Chem 7: 03/06/19 05:30 03/02/19 09:50 Labs: Laboratory Last Values WBC 4.8 K/mm3 (4.5-11.0) 03/02/19 09:50 RBC 4.43 M/mm3 (3.65-5.03) 03/02/19 09:50 Hgb 10.7 gm/dl (10.1-14.3) 03/06/19 05:30 Hct 32.1 % (30.3-42.9) 03/06/19 05:30 MCV 80 fl (79-97) 03/02/19 09:50 MCH 27 pg (28-32) L 03/02/19 09:50 MCHC 34 % (30-34) 03/02/19 09:50 RDW 14.5 % (13.2-15.2) 03/02/19 09:50 Plt Count 327 K/mm3 (140-440) 03/02/19 09:50 Lymph % (Auto) 26.3 % (13.4-35.0) 03/02/19 09:50 [place] % (Auto) 8.7 % (0.0-7.3) H 03/02/19 09:50 Eos % (Auto) 1.3 % (0.0-4.3) 03/02/19 09:50 Baso % (Auto) 0.6 % (0.0-1.8) 03/02/19 09:50 Lymph # 1.3 K/mm3 (1.2-5.4) 03/02/19 09:50 [place] # 0.4 K/mm3 (0.0-0.8) 03/02/19 09:50 Eos # 0.1 K/mm3 (0.0-0.4) 03/02/19 09:50 Baso # 0.0 K/mm3 (0.0-0.1) 03/02/19 09:50 Seg Neutrophils % 63.1 % (40.0-70.0) 03/02/19 09:50 Seg Neutrophils # 3.1 K/mm3 (1.8-7.7) 03/02/19 09:50 PT 12.7 Sec. (12.2-14.9) 03/02/19 09:50 INR 0.98 (0.87-1.13) 03/02/19 09:50 APTT 29.2 Sec. (24.2-36.6) 03/02/19 09:50 Sodium 140 mmol/L (137-145) 03/02/19 09:50 Potassium 4.2 mmol/L (3.6-5.0) 03/02/19 09:50 Chloride 100.8 mmol/L (98-107) 03/02/19 09:50 Carbon Dioxide 26 mmol/L (22-30) 03/02/19 09:50 17 mmol/L 03/02/19 09:50 BUN 15 mg/dL (7-17) 03/02/19 09:50 0.6 mg/dL (0.7-1.2) L 03/02/19 09:50 Estimated GFR > 60 ml/min 03/02/19 09:50 25 % 03/02/19 09:50 Glucose 225 mg/dL (65-100) H 03/02/19 09:50 POC Glucose 89 (70-105) 03/08/19 07:57 Calcium 9.5 mg/dL (8.4-10.2) 03/02/19 09:50 0.40 mg/dL (0.1-1.2) 03/02/19 09:50 AST 12 units/L (5-40) 03/02/19 09:50 ALT 19 units/L (7-56) 03/02/19 09:50 86 units/L (35-129) 03/02/19 09:50 7.6 g/dL (6.3-8.2) 03/02/19 09:50 3.9 g/dL (3.9-5) 03/02/19 09:50 1.1 % 03/02/19 09:50 HCG, Qual Negative (Negative) 03/02/19 09:50 Active Medications - Current Medications Current Medications: Generic Name Dose Route Start Last Admin Trade Name Freq PRN Reason Stop Dose Admin Acetaminophen 650 mg 03/08/19 05:30 Tylenol PO Q4H PRN Pain, Mild (1-3) Acetaminophen/Hydrocodone Bitart 2 each 03/05/19 22:25 03/08/19 09:01 [place] 5/325 PO 2 each Q6H PRN Administration Pain, Moderate (4-6) Albuterol 2.5 mg 03/06/19 16:04 Proventil IH Q4HRT PRN Shortness Of Breath Atorvastatin Calcium 20 mg 03/06/19 22:00 03/07/19 22:33 Lipitor PO 20 mg QHS GILDA Administration Dextrose 50 ml 03/05/19 18:35 D50w (25gm) Syringe IV PRN PRN Hypoglycemia Enoxaparin Sodium 40 mg 03/06/19 10:00 03/08/19 09:04 Lovenox SUB-Q 40 mg QDAY GILDA Administration Fentanyl 100 mcg 03/05/19 06:00 03/05/19 07:49 Sublimaze IV 100 mcg ONCE PRN Administration sedation for nerve block Glipizide 10 mg 03/06/19 22:00 03/08/19 10:00 Glucotrol PO Not Given BID GILDA Hydralazine HCl 20 mg 03/05/19 18:33 03/05/19 20:32 Apresoline IV 20 mg Q6HR PRN Administration HTN>160 Hydrochlorothiazide 25 mg 03/06/19 16:00 03/08/19 09:02 Hctz PO 25 mg QDAY GILDA Administration Lactated Ringer's 1,000 mls @ 100 mls/hr 03/04/19 14:00 03/07/19 20:27 Lactated Ringers IV Infused DIRECT GILDA Infusion Ibuprofen 800 mg 03/06/19 15:56 03/07/19 20:31 Ibuprofen PO 800 mg PRN PRN Administration Pain, Mild (1-3) Insulin Human Isoph/Insulin Regular 20 unit 03/07/19 10:00 03/08/19 10:00 Humulin 70/30 SUB-Q Not Given [facility] Insulin Human Isoph/Insulin Regular 20 unit 03/06/19 22:00 03/08/19 00:19 Humulin 70/30 SUB-Q 20 unit QHS GILDA Administration Insulin Human Lispro 0 unit 03/07/19 07:30 03/08/19 08:50 [facility] Protocol Morphine Sulfate 2 mg 03/05/19 11:49 03/08/19 11:35 Morphine IV 2 mg Q4H PRN Administration Pain, Moderate (4-6) Morphine Sulfate 4 mg 03/05/19 11:49 03/06/19 20:35 Morphine IV 4 mg Q4H PRN Administration Pain , Severe (7-10) Ondansetron HCl 4 mg 03/05/19 11:49 03/05/19 22:05 Zofran IV 4 mg Q8H PRN Administration Nausea And Vomiting Zolpidem Tartrate 5 mg 03/05/19 11:49 03/06/19 22:43 Ambien PO 5 mg QHS PRN Administration Sleep
--- NOTE | 2019-03-08 12:00 | Discharge Summary ---
Providers - Providers Date of Admission: 03/05/19 06:33 Attending physician: HUMA SEVILLA MD 03/05/19 11:49 Consult to Case Management [CONS] Routine Services Needed at Discharge: Home Health Services Physical Therapy DME Equipment Notified:: yes Was contact made?: Yes Comment:: order given to CM 03/05/19 11:54 Physical Therapy Evaluation and Treat [CONS] Routine Comment: Reason For Exam: post op evaluation Weight bearing status?: Full wt bearing Assistive devices?: Yes If so list: Walker 03/05/19 17:24 Consult to Physician [CONS] Urgent Comment: Consulting Provider: JANET SIERRA Physician Instructions: Reason For Exam: MEDICAL MANAGEMENT Primary care physician: RACHELLE CAMPBELL Hospitalization Condition: Good Hospital course: 58F admitted for elective left aka ,she had procedure, tolerated it well. She did well with PT. Home meds were continued. She was dc after her DME was delivered Diagnosis S/p TKA, OA Diabetes Elevated cholesterol HTN (hypertension) Obesity hypoventilation syndrome Disposition: DC/[place]-06 HOME UNDER HOME HLTH Time spent for discharge: 33 mins Core Measure Documentation - Palliative Care Palliative Care/ Comfort Measures: Not Applicable - Core Measures Any of the following diagnoses?: none Exam - Constitutional Vitals: Temp Pulse Resp BP Pulse Ox 98.4 F 89 18 155/78 93 03/08/19 07:45 03/08/19 07:45 03/08/19 07:45 03/08/19 07:45 03/08/19 08:56 General appearance: Present: no acute distress, well-nourished - EENT Eyes: Present: PERRL ENT: hearing intact, clear oral mucosa - Neck Neck: Present: supple, normal ROM - Respiratory Respiratory effort: normal Respiratory: bilateral: CTA - Cardiovascular Heart Sounds: Present: S1 & S2. Absent: rub, click - Extremities Extremities: pulses symmetrical Extremity abnormal: edema (LLE) Peripheral Pulses: within normal limits - Abdominal General gastrointestinal: Present: soft, non-tender, non-distended, normal bowel sounds Female genitourinary: Present: normal - Integumentary Integumentary: Present: clear, warm, dry - Musculoskeletal Musculoskeletal: gait normal, strength equal bilaterally - Psychiatric Psychiatric: appropriate mood/affect, intact judgment & insight - Neurologic Neurologic: CNII-XII intact, moves all extremities Plan Follow up with: RACHELLE CAMPBELL [Primary Care Provider] - 7 Days HUMA SEVILLA MD [Staff Physician] - 14 Days Prescriptions: Apixaban [Eliquis] 5 mg PO DAILY #30 tablet oxyCODONE /ACETAMINOPHEN [Percocet 5/325] 1 tab PO Q6HR PRN #20 tablet PRN Reason: Pain Oxycodone HCl/Acetaminophen [Percocet 7.5/325 mg] 1 each PO Q6HR PRN #30 tablet PRN Reason: Pain
--- NOTE | 2019-03-08 12:24 | Progress Note ---
Assessment and Plan Status post left total knee replacement postop day 1 Plan begin physical therapy continue observation Subjective Date of service: 03/08/19 Principal diagnosis: S/p TKA Interval history: c/o incisional pain, doing well with PT... Objective Vital signs: Vital Signs - 12hr 03/08/19 03/08/19 03/08/19 00:57 00:58 01:18 Temperature 98.0 F 98.5 F Pulse Rate 88 88 72 Respiratory 18 17 Rate Blood Pressure 97/49 Blood Pressure 168/84 [Left] O2 Sat by Pulse 96 95 98 Oximetry 03/08/19 03/08/19 03/08/19 05:11 07:45 08:56 Temperature 98.0 F 98.4 F Pulse Rate 84 89 Respiratory 18 18 Rate Blood Pressure 136/73 155/78 Blood Pressure [Left] O2 Sat by Pulse 99 98 93 Oximetry Incision: healing, clean and dry Weight bearing status: as tolerated - Labs CBC & BMP: 03/06/19 05:30 03/02/19 09:50 Labs: Abnormal lab results 03/07/19 Range/Units 17:04 POC Glucose 242 H (70-105)
[2019-03-08] MEDS: AMBIEN PO PRN (22:30)
--- NOTE | 2019-03-09 08:33 | Progress Note ---
Hospitalist Physical - Constitutional Vitals: Temp Pulse Resp BP Pulse Ox 99.7 F H 92 H 18 127/56 100 03/09/19 05:32 03/09/19 05:32 03/09/19 05:32 03/09/19 05:32 03/09/19 05:32 General appearance: Present: no acute distress, well-nourished Results - Labs CBC & Chem 7: 03/06/19 05:30 03/02/19 09:50 Labs: Laboratory Last Values WBC 4.8 K/mm3 (4.5-11.0) 03/02/19 09:50 RBC 4.43 M/mm3 (3.65-5.03) 03/02/19 09:50 Hgb 10.7 gm/dl (10.1-14.3) 03/06/19 05:30 Hct 32.1 % (30.3-42.9) 03/06/19 05:30 MCV 80 fl (79-97) 03/02/19 09:50 MCH 27 pg (28-32) L 03/02/19 09:50 MCHC 34 % (30-34) 03/02/19 09:50 RDW 14.5 % (13.2-15.2) 03/02/19 09:50 Plt Count 327 K/mm3 (140-440) 03/02/19 09:50 Lymph % (Auto) 26.3 % (13.4-35.0) 03/02/19 09:50 [place] % (Auto) 8.7 % (0.0-7.3) H 03/02/19 09:50 Eos % (Auto) 1.3 % (0.0-4.3) 03/02/19 09:50 Baso % (Auto) 0.6 % (0.0-1.8) 03/02/19 09:50 Lymph # 1.3 K/mm3 (1.2-5.4) 03/02/19 09:50 [place] # 0.4 K/mm3 (0.0-0.8) 03/02/19 09:50 Eos # 0.1 K/mm3 (0.0-0.4) 03/02/19 09:50 Baso # 0.0 K/mm3 (0.0-0.1) 03/02/19 09:50 Seg Neutrophils % 63.1 % (40.0-70.0) 03/02/19 09:50 Seg Neutrophils # 3.1 K/mm3 (1.8-7.7) 03/02/19 09:50 PT 12.7 Sec. (12.2-14.9) 03/02/19 09:50 INR 0.98 (0.87-1.13) 03/02/19 09:50 APTT 29.2 Sec. (24.2-36.6) 03/02/19 09:50 Sodium 140 mmol/L (137-145) 03/02/19 09:50 Potassium 4.2 mmol/L (3.6-5.0) 03/02/19 09:50 Chloride 100.8 mmol/L (98-107) 03/02/19 09:50 Carbon Dioxide 26 mmol/L (22-30) 03/02/19 09:50 17 mmol/L 03/02/19 09:50 BUN 15 mg/dL (7-17) 03/02/19 09:50 0.6 mg/dL (0.7-1.2) L 03/02/19 09:50 Estimated GFR > 60 ml/min 03/02/19 09:50 25 % 03/02/19 09:50 Glucose 225 mg/dL (65-100) H 03/02/19 09:50 POC Glucose 195 (70-105) H 03/09/19 08:13 Calcium 9.5 mg/dL (8.4-10.2) 03/02/19 09:50 0.40 mg/dL (0.1-1.2) 03/02/19 09:50 AST 12 units/L (5-40) 03/02/19 09:50 ALT 19 units/L (7-56) 03/02/19 09:50 86 units/L (35-129) 03/02/19 09:50 7.6 g/dL (6.3-8.2) 03/02/19 09:50 3.9 g/dL (3.9-5) 03/02/19 09:50 1.1 % 03/02/19 09:50 HCG, Qual Negative (Negative) 03/02/19 09:50 Active Medications - Current Medications Current Medications: Generic Name Dose Route Start Last Admin Trade Name Freq PRN Reason Stop Dose Admin Acetaminophen 650 mg 03/08/19 05:30 Tylenol PO Q4H PRN Pain, Mild (1-3) Acetaminophen/Hydrocodone Bitart 2 each 03/05/19 22:25 03/08/19 22:23 [place] 5/325 PO 2 each Q6H PRN Administration Pain, Moderate (4-6) Albuterol 2.5 mg 03/06/19 16:04 Proventil IH Q4HRT PRN Shortness Of Breath Atorvastatin Calcium 20 mg 03/06/19 22:00 03/08/19 22:30 Lipitor PO 20 mg QHS GILDA Administration Dextrose 50 ml 03/05/19 18:35 D50w (25gm) Syringe IV PRN PRN Hypoglycemia Enoxaparin Sodium 40 mg 03/06/19 10:00 03/08/19 09:04 Lovenox SUB-Q 40 mg QDAY GILDA Administration Fentanyl 100 mcg 03/05/19 06:00 03/05/19 07:49 Sublimaze IV 100 mcg ONCE PRN Administration sedation for nerve block Glipizide 10 mg 03/06/19 22:00 03/08/19 22:22 Glucotrol PO 10 mg BID GILDA Administration Hydralazine HCl 20 mg 03/05/19 18:33 03/05/19 20:32 Apresoline IV 20 mg Q6HR PRN Administration HTN>160 Hydrochlorothiazide 25 mg 03/06/19 16:00 03/08/19 09:02 Hctz PO 25 mg QDAY GILDA Administration Lactated Ringer's 1,000 mls @ 100 mls/hr 03/04/19 14:00 03/07/19 20:27 Lactated Ringers IV Infused DIRECT GILDA Infusion Ibuprofen 800 mg 03/06/19 15:56 03/07/19 20:31 Ibuprofen PO 800 mg PRN PRN Administration Pain, Mild (1-3) Insulin Human Isoph/Insulin Regular 20 unit 03/07/19 10:00 03/08/19 10:00 Humulin 70/30 SUB-Q Not Given QAM GILDA Insulin Human Isoph/Insulin Regular 20 unit 03/06/19 22:00 03/08/19 22:22 Humulin 70/30 SUB-Q 20 unit QHS GILDA Administration Insulin Human Lispro 0 unit 03/07/19 07:30 03/08/19 22:43 Humalog SUB-Q 4 unit ACHS GILDA Administration Protocol Morphine Sulfate 2 mg 03/05/19 11:49 03/08/19 18:36 Morphine IV 2 mg Q4H PRN Administration Pain, Moderate (4-6) Morphine Sulfate 4 mg 03/05/19 11:49 03/06/19 20:35 Morphine IV 4 mg Q4H PRN Administration Pain , Severe (7-10) Ondansetron HCl 4 mg 03/05/19 11:49 03/05/19 22:05 Zofran IV 4 mg Q8H PRN Administration Nausea And Vomiting Zolpidem Tartrate 5 mg 03/05/19 11:49 03/08/19 22:30 Ambien PO 5 mg QHS PRN Administration Sleep
[2019-03-09] MEDS: LOVENOX SUB-Q SCH (09:18)
[2019-03-09] MEDS: GLUCOTROL PO SCH (09:18)
[2019-03-09] MEDS: HCTZ PO SCH (09:18)
[2019-03-09] MEDS: HumaLOG SUB-Q SCH ×2 (09:19→12:31)
[2019-03-09 11:51] VITALS: BP 131/78
[2019-03-09] MEDS ORDERED: IBUPROFEN PO PRN (12:00)
--- NOTE | 2019-03-09 13:21 | Vascular Lab Report ---
DUPLEX DOPPLER LOWER EXTREMITY VEINS, LEFT INDICATION: Left leg pain and swelling after recent surgery. TECHNIQUE: Duplex doppler imaging was performed through the veins of the left lower extremity using venous compr ession and other maneuvers. COMPARISON: No relevant prior imaging study available. FINDINGS: Left Common Femoral vein: Negative. Left Superficial Femoral vein: Negative. Left Popliteal vein: Negative. Left Calf veins: Negative. Additional findings: None. IMPRESSION: No sonographic evidence for DVT in the left lower extremity. Signer Name: Arthur Oconnor MD Signed: 03/09/2019 1:17 PM Workstation Name: [id number]
== END 2019-03-09 16:05 | disposition home health service (06) | DRG 470 ==
LOC: 3A 06:33 → 3B-SURG 12:18
PROVIDERS: ADMIT Orthopaedic Surgery; ATTEND Orthopaedic Surgery
PROC: 0SRD0J9 Replacement of Left Knee Joint with Synthetic Substitute, Cemented, Open Approach (ICD-10-PCS; principal; 2019-03-05)
DX: M17.12 Unilateral primary osteoarthritis, left knee (principal); E66.2 Morbid (severe) obesity with alveolar hypoventilation; I10 Essential (primary) hypertension; J45.909 Unspecified asthma, uncomplicated; K21.9 Gastro-esophageal reflux disease without esophagitis; E11.9 Type 2 diabetes mellitus without complications; I25.10 Atherosclerotic heart disease of native coronary artery without angina pectoris; G89.29 Other chronic pain; E78.00 Pure hypercholesterolemia, unspecified; E78.5 Hyperlipidemia, unspecified; Z68.37 Body mass index [BMI] 37.0-37.9, adult; Z83.3 Family history of diabetes mellitus; Z82.49 Family history of ischemic heart disease and other diseases of the circulatory system; Z79.899 Other long term (current) drug therapy
CPT/HCPCS: 36415; 64450; 80053; 82962; 84703; 85014; 85018; 85025; 85610; 85730; 88304; 88305; 88311; 94760; G0378; A4217; A9270-GY; C1776; J0330; J0360; J0690; J1100; J1650; J1815; J1885; J2250; J2270; J2405; J2704; J2710; J3010; J7120

== ENCOUNTER 2020-04-14 15:15 | Outpatient (CLI) | payer OTHER ==
--- NOTE | 2020-04-14 17:46 | XRay Report ---
LUMBAR SPINE 3 VIEWS 1554 INDICATION: BACK PAIN COMPARISON: None available. FINDINGS: Mild scoliosis is seen. Diffuse degenerative changes are noted. These are most prominent in the lower lumbar spine where there appears to be moderate disc space narrowing at L5-S1 and mild scottie rowing at L4-5. Mild narrowing is also seen at L2-3. No definite fracture is seen. Facet arthritic ch anges are noted in the mid lower lumbar spine. No significant subluxation is noted. Signer Name: Ar Burkett MD Signed: 04/14/2020 5:41 PM Workstation Name: [id number]
== END 2020-04-14 15:16 | disposition home or self-care (01) ==
LOC: XRAY 15:15
PROVIDERS: ATTEND Internal Medicine
DX: M47.897 Other spondylosis, lumbosacral region (principal); M41.87 Other forms of scoliosis, lumbosacral region; M48.07 Spinal stenosis, lumbosacral region; M48.061 Spinal stenosis, lumbar region without neurogenic claudication
CPT/HCPCS: 72100

== ENCOUNTER 2020-07-22 15:37 | Inpatient (IN) | payer OTHER ==
[2020-07-22] MEDS ORDERED: ACETAMINOPHEN 325 MG TAB PO ONE (15:52)
[2020-07-22] MEDS ORDERED: IBUPROFEN 600 MG TAB PO ONE ×2 (15:55→15:56)
--- NOTE | 2020-07-22 15:55 | Event Note ---
ED Screening Note Date of service: 07/22/20 ED Screening Note: Patient complains of shortness of breath and body aches x1 week Symptoms worsening per patient Pulse ox noted to be 93% on room air with a heart rate of 114 and temperature of 102.5 Patient states that she is awaiting her COVID-19 test results History of hypertension and asthma Denies smoking This initial assessment/diagnostic orders/clinical plan/treatment(s) is/are subject to change based on patients health status, clinical progression and re-assessment by fellow clinical providers in the ED. Further treatment and workup at subsequent clinical providers discretion. Patient/guardian urged not to elope from the ED as their condition may be serious if not clinically assessed and managed. Initial orders include: Chest x-ray Labs Tylenol +SIRS
[2020-07-22 16:51] LABS: Basophils % (Auto) 0.3 % (0.0-1.8); Eosinophils % (Auto) 0.1 % (0.0-4.3); Hematocrit 35.8 % (30.3-42.9); Hemoglobin 11.8 gm/dl (10.1-14.3); Lymphocytes # (Auto) 0.6 K/mm3 (1.2-5.4); Lymphocytes % (Auto) 7.7 % (13.4-35.0); Mean Corpuscular HGB Conc 33 % (30-34); Mean Corpuscular Volume 80 fl (79-97); Monocytes # (Auto) 0.2 K/mm3 (0.0-0.8); Monocytes % (Auto) 2.2 % (0.0-7.3); Platelet Count 353 K/mm3 (140-440); Red Cell Distribution Width 15.1 % (13.2-15.2)
--- NOTE | 2020-07-22 16:57 | XRay Report ---
CHEST 2 VIEWS INDICATION / CLINICAL INFORMATION: Shortness of breath. COMPARISON: 07/19/2018 FINDINGS: SUPPORT DEVICES: None. HEART / MEDIASTINUM: No significant abnormality. LUNGS / PLEURA: Interval development of mild patchy bilateral airspace opacities since prior exam. No pneumothorax. No pleural effusions. ADDITIONAL FINDINGS: No significant additional findings. IMPRESSION: 1. Interval development of mild patchy bilateral airspace opacities since prior exam likely represent s viral versus atypical infectious process. Signer Name: Donis Shea MD Signed: 07/22/2020 4:53 PM Workstation Name: [id number]
[2020-07-22 17:02] LABS: Alanine Aminotransferase 17 units/L (7-56); Albumin 3.5 g/dL (3.9-5); BUN/Creatinine Ratio 12; Blood Urea Nitrogen 12 mg/dL (7-17); Calcium 8.6 mg/dL (8.4-10.2); Hemolysis Index 3
[2020-07-22] MEDS ORDERED: MORPHINE 4 MG/1 ML INJ IV ONE (18:11)
[2020-07-22] MEDS ORDERED: ONDANSETRON 4 MG/2 ML INJ IV ONE (18:11)
[2020-07-22] MEDS ORDERED: SODIUM CHLORIDE 0.9% 1000 ML 1,000 ML IV ONE (18:12)
[2020-07-22] MEDS ORDERED: cefTRIAXone/NS 1 GM/50 ML 1 GM/50 ML BAG IV ONE (18:13)
--- NOTE | 2020-07-22 18:15 | Emergency Department Report ---
ED General Adult HPI - General Chief complaint: Dyspnea/Respdistress Stated complaint: DIABETIC; TROUBLE BREATHING Time Seen by Provider: 07/22/20 15:51 Source: patient Mode of arrival: Wheelchair Limitations: No Limitations - History of Present Illness Initial comments: The patient presents to the emergency department the chief complaint of shortness of breath since Saturday. Patient states she is also had a cough and loss of taste and smell since that time as well. Patient states she has been using her inhaler at home but is still continuously short of breath. Patient states she took her Covid test yesterday and does not have the results. Patient complains of chest pain with inspiration but denies abdominal pain. O2 sats 92% on RA -: days(s) (3) Severity scale (0 -10): 4 Quality: aching Consistency: constant Improves with: none Worsens with: other (Respiration) Associated Symptoms: denies other symptoms Treatments Prior to Arrival: none - Related Data Home Medications Medication Instructions Recorded Confirmed Last Taken Insulin NPH/Regular [NovoLIN 70/30] 35 unit SQ QHS 03/28/17 03/05/19 03/04/19 09:00 metFORMIN [Glucophage] 1,000 mg PO BID 03/28/17 03/05/19 03/04/19 09:00 Albuterol Sulfate [Proventil Hfa] 2 puff IH PRN PRN 02/24/19 02/24/19 Unknown AtorvaSTATin [Lipitor] 20 mg PO QHS 02/24/19 03/05/19 03/04/19 21:00 Ibuprofen [Motrin 600 MG tab] 800 mg PO PRN PRN 02/24/19 03/05/19 03/04/19 16:30 Insulin NPH Hum/Reg Insulin Hm 40 unit SQ QAM 02/24/19 03/05/19 03/04/19 09:00 [Relion Novolin 70-30 Vial] glipiZIDE [Glucotrol] 10 mg PO BID 02/24/19 03/05/19 03/04/19 18:00 hydroCHLOROthiazide [HCTZ] 25 mg PO QDAY 02/24/19 03/05/19 03/04/19 09:00 Previous Rx's Medication Instructions Recorded Last Taken Type oxyCODONE /ACETAMINOPHEN [Percocet 1 tab PO Q6HR PRN #20 tablet 03/08/19 Unknown Rx 5/325] Apixaban [Eliquis] 5 mg PO DAILY #30 tablet 03/09/19 Unknown Rx Oxycodone HCl/Acetaminophen 1 each PO Q6HR PRN #30 tablet 03/09/19 Unknown Rx [Percocet 7.5/325 mg] Allergies Allergy/AdvReac Type Severity Reaction Status Date / Time No Known Allergies Allergy Verified 05/05/15 11:11 ED Review of Systems ROS: Stated complaint: DIABETIC; TROUBLE BREATHING Other details as noted in HPI Comment: All other systems reviewed and negative Constitutional: denies: chills, fever Eyes: denies: eye pain, eye discharge, vision change ENT: denies: ear pain, throat pain Respiratory: shortness of breath. denies: cough, wheezing Cardiovascular: denies: chest pain, palpitations Endocrine: no symptoms reported Gastrointestinal: denies: abdominal pain, nausea, diarrhea Genitourinary: denies: urgency, dysuria, discharge Musculoskeletal: denies: back pain, joint swelling, arthralgia Skin: denies: rash, lesions Neurological: denies: headache, weakness, paresthesias Psychiatric: denies: anxiety, depression Hematological/Lymphatic: denies: easy bleeding, easy bruising ED Past Medical Hx - Past Medical History Previous Medical History?: Yes Hx Hypertension: Yes Hx Heart Attack/AMI: No Hx Diabetes: Yes Hx GERD: Yes (NO REGULAR MEDS) Hx Liver Disease: No Hx Renal Disease: No Hx Arthritis: Yes Hx Headaches / Migraines: Yes Hx Asthma: Yes (INHALER PRN) Hx HIV: No Additional medical history: HIGH CHOLESTEROL - Surgical History Past Surgical History?: Yes Additional Surgical History: TUBAL LIGATION. POLYPS FROM THROAT REMOVED - Social History Smoking Status: Never Smoker - Medications Home Medications: Home Medications Medication Instructions Recorded Confirmed Last Taken Type Insulin NPH/Regular [NovoLIN 70/30] 35 unit SQ QHS 03/28/17 03/05/19 03/04/19 09:00 History metFORMIN [Glucophage] 1,000 mg PO BID 03/28/17 03/05/19 03/04/19 09:00 History Albuterol Sulfate [Proventil Hfa] 2 puff IH PRN PRN 02/24/19 02/24/19 Unknown History AtorvaSTATin [Lipitor] 20 mg PO QHS 08/13/19 08/22/19 08/21/19 21:00 History Ibuprofen [Motrin 600 MG tab] 800 mg PO PRN PRN 02/24/19 03/05/19 03/04/19 16:30 History Insulin NPH Hum/Reg Insulin Hm 40 unit SQ QAM 02/24/19 03/05/19 03/04/19 09:00 History [Relion Novolin 70-30 Vial] glipiZIDE [Glucotrol] 10 mg PO BID 02/24/19 03/05/19 03/04/19 18:00 History hydroCHLOROthiazide [HCTZ] 25 mg PO QDAY 02/24/19 03/05/19 03/04/19 09:00 History oxyCODONE /ACETAMINOPHEN [Percocet 1 tab PO Q6HR PRN #20 tablet 03/08/19 Unknown Rx 5/325] Apixaban [Eliquis] 5 mg PO DAILY #30 tablet 03/09/19 Unknown Rx Oxycodone HCl/Acetaminophen 1 each PO Q6HR PRN #30 tablet 03/09/19 Unknown Rx [Percocet 7.5/325 mg] ED Physical Exam - General Limitations: No Limitations General appearance: alert, in no apparent distress - Head Head exam: Present: atraumatic, normocephalic - Eye Eye exam: Present: normal appearance - ENT ENT exam: Present: mucous membranes moist - Neck Neck exam: Present: normal inspection - Respiratory Respiratory exam: Present: decreased breath sounds. Absent: respiratory distress - Cardiovascular Cardiovascular Exam: Present: normal rhythm, tachycardia. Absent: systolic murmur, diastolic murmur, rubs, gallop - GI/Abdominal GI/Abdominal exam: Present: soft, normal bowel sounds. Absent: distended, tenderness - Extremities Exam Extremities exam: Present: normal inspection - Back Exam Back exam: Present: normal inspection - Neurological Exam Neurological exam: Present: alert, oriented X3, CN II-XII intact. Absent: motor sensory deficit - Psychiatric Psychiatric exam: Present: normal affect, normal mood - Skin Skin exam: Present: warm, dry, intact, normal color. Absent: rash ED Course Vital Signs 07/22/20 15:48 Temperature 102.5 F H Pulse Rate 114 H Respiratory 22 Rate Blood Pressure 145/73 [Right] O2 Sat by Pulse 92 Oximetry ED Medical Decision Making - Lab Data Result diagrams: 07/22/20 16:00 07/22/20 16:00 Lab Results 07/22/20 07/22/20 07/22/20 Range/Units 16:00 16:00 16:00 WBC 8.2 (4.5-11.0) K/mm3 RBC 4.50 (3.65-5.03) M/mm3 Hgb 11.8 (10.1-14.3) gm/dl Hct 35.8 (30.3-42.9) % MCV 80 (79-97) fl MCH 26 L (28-32) pg MCHC 33 (30-34) % RDW 15.1 (13.2-15.2) % Plt Count 353 (140-440) K/mm3 Lymph % (Auto) 7.7 L (13.4-35.0) % [place] % (Auto) 2.2 (0.0-7.3) % Eos % (Auto) 0.1 (0.0-4.3) % Baso % (Auto) 0.3 (0.0-1.8) % Lymph # (Auto) 0.6 L (1.2-5.4) K/mm3 [place] # (Auto) 0.2 (0.0-0.8) K/mm3 Eos # (Auto) 0.0 (0.0-0.4) K/mm3 Baso # (Auto) 0.0 (0.0-0.1) K/mm3 Seg Neutrophils % 89.7 H (40.0-70.0) % Seg Neutrophils # 7.4 (1.8-7.7) K/mm3 Sodium 133 L (137-145) mmol/L Potassium 3.6 (3.6-5.0) mmol/L Chloride 96.1 L (98-107) mmol/L Carbon Dioxide 24 (22-30) mmol/L Anion Gap 17 mmol/L BUN 12 (7-17) mg/dL Creatinine 1.0 (0.6-1.2) mg/dL Estimated GFR > 60 ml/min BUN/Creatinine Ratio 12 % Glucose 340 H (65-100) mg/dL Lactic Acid 1.50 (0.7-2.0) mmol/L Calcium 8.6 (8.4-10.2) mg/dL Total Bilirubin 0.40 (0.1-1.2) mg/dL AST 13 (5-40) units/L ALT 17 (7-56) units/L Alkaline Phosphatase 94 (35-129) units/L Total Protein 8.0 (6.3-8.2) g/dL Albumin 3.5 L (3.9-5) g/dL Albumin/Globulin Ratio 0.8 % Critical Care Time: Yes Critical care time in (mins) excluding proc time.: 35 Critical care attestation.: If time is entered above; I have spent that time in minutes in the direct care of this critically ill patient, excluding procedure time. ED Disposition Clinical Impression: Bilateral pneumonia, Hypoxia Disposition: DC-09 OP ADMIT IP TO THIS HOSP Is pt being admited?: Yes Does the pt Need Aspirin: Yes Condition: Fair Instructions: Bacterial Pneumonia (ED) Time of Disposition: 19:12
[2020-07-22] MEDS ORDERED: AZITHROMYCIN 500 MG in SODIUM CHLORIDE 0.9% 250ML 250 ML IV ONE (18:30)
[2020-07-22] MEDS ORDERED: ONDANSETRON 4 MG/2 ML INJ IV PRN (19:12)
[2020-07-22] MEDS ORDERED: ALBUTEROL 2.5 MG/3 ML NEBU IH PRN (19:12)
[2020-07-22] MEDS ORDERED: ACETAMINOPHEN 325 MG TAB PO PRN (19:12)
[2020-07-22] MEDS ORDERED: HYDROmorphone 1 MG/1 ML INJ IV PRN (19:12)
[2020-07-22] MEDS ORDERED: ASPIRIN 81 MG TAB CHEW PO ONE (19:12)
--- NOTE | 2020-07-22 19:12 | History and Physical Report ---
History of Present Illness Chief complaint: I feel sick History of present illness: 56 YO Female with HTN, HLD, DM, Obesity Hypoventilation Syndrome, Migraine Headache, GERD, OA, Asthma presents to ED for evaluation. Patient states that she has "not been feeling well" over the past 1 week with persistently worsening symptoms over the same timeframe. Patient states that she has experienced shortness of breath, fever, malaise, body aches, generalized weakness, decreased exercise tolerance, loss of sense of smell, loss of sense of taste. Patient acknowledges fever to 102.5 F. Patient transported to [facility] via private vehicle for further care and evaluation of the aforementioned symptoms. The patient was seen and evaluated in the emergency department. All lab and imaging studies reviewed. Patient underwent a chest x-ray which revealed pneumonia which is complicated by Sepsis. The patient was found to have a pulse oximetry of 86% on room air with exertion which is consistent with acute hypoxemic respiratory failure. The patient was placed on supplemental oxygen in the emergency department with mild improvement in symptoms. Patient admitted to medical floor and initiated on sepsis and pneumonia protocol. Patient also initiated on coronavirus protocol. Patient denies chills, palpitations, skin rash, recent ill contacts, trauma. Prior admission on 03/28/2017 reviewed.. No medication listed for reconciliation at the time of my admission. Past History Past Medical History: diabetes, GERD, hypertension, hyperlipidemia, other (See HPI) Past Surgical History: Other (Tubal ligation, throat polyps) Social history: single. denies: smoking, alcohol abuse, prescription drug abuse Family history: diabetes, hypertension Medications and Allergies Allergies Allergy/AdvReac Type Severity Reaction Status Date / Time No Known Allergies Allergy Verified 05/05/15 11:11 Home Medications Medication Instructions Recorded Confirmed Last Taken Type Insulin NPH/Regular [NovoLIN 70/30] 35 unit SQ QHS 03/28/17 03/05/19 03/04/19 09:00 History metFORMIN [Glucophage] 1,000 mg PO BID 03/28/17 03/05/19 03/04/19 09:00 History Albuterol Sulfate [Proventil Hfa] 2 puff IH PRN PRN 02/24/19 02/24/19 Unknown History AtorvaSTATin [Lipitor] 20 mg PO QHS 02/24/19 03/05/19 03/04/19 21:00 History Ibuprofen [Motrin 600 MG tab] 800 mg PO PRN PRN 02/24/19 03/05/19 03/04/19 16:30 History Insulin NPH Hum/Reg Insulin Hm 40 unit SQ QAM 02/24/19 03/05/19 03/04/19 09:00 History [Relion Novolin 70-30 Vial] glipiZIDE [Glucotrol] 10 mg PO BID 02/24/19 03/05/19 03/04/19 18:00 History hydroCHLOROthiazide [HCTZ] 25 mg PO QDAY 02/24/19 03/05/19 03/04/19 09:00 History oxyCODONE /ACETAMINOPHEN [Percocet 1 tab PO Q6HR PRN #20 tablet 03/08/19 Unknown Rx 5/325] Apixaban [Eliquis] 5 mg PO DAILY #30 tablet 03/09/19 Unknown Rx Oxycodone HCl/Acetaminophen 1 each PO Q6HR PRN #30 tablet 03/09/19 Unknown Rx [Percocet 7.5/325 mg] Active Meds: Active Medications Sodium Chloride (Nacl 0.9% 1000 Ml) 1,000 mls @ 999 mls/hr IV BOLUS ONE Stop: 07/22/20 19:12 Azithromycin 500 mg/ Sodium (Chloride) 250 mls @ 250 mls/hr IV ONCE ONE; Protocol Stop: 07/22/20 19:29 Review of Systems Constitutional: fever, weakness, malaise, lethargy, no weight loss Ears, nose, mouth and throat: no ear pain, no ear discharge, no tinnitis, no nasal congestion Cardiovascular: no chest pain, no palpitations, no rapid/irregular heart beat, no edema Respiratory: cough, shortness of breath Gastrointestinal: no abdominal pain, no nausea, no vomiting, no diarrhea Genitourinary Female: no pelvic pain, no flank pain, no dysuria, no urinary frequency, no urgency Rectal: no incontinence, no bleeding Musculoskeletal: no neck stiffness, no neck pain, no arm numbness/tingling, no low back pain Integumentary: no rash, no pruritis, no redness, no sores Neurological: no transient paralysis, no paralysis, no weakness, no numbness, no tingling, no seizures Psychiatric: no change in sleep habits, no hypersomnia Endocrine: no cold intolerance, no polyuria, no excessive sweating Hematologic/Lymphatic: no easy bruising, no easy bleeding, no lymphedema Allergic/Immunologic: no anaphylaxis, no angioedema Exam - Constitutional Vitals: Temp Pulse Resp BP Pulse Ox 102.5 F H 114 H 22 145/73 92 07/22/20 15:48 07/22/20 15:48 07/22/20 15:48 07/22/20 15:48 07/22/20 15:48 General appearance: Present: mild distress, obese - EENT Eyes: Present: PERRL ENT: hearing intact, clear oral mucosa - Neck Neck: Present: supple, normal ROM - Respiratory Respiratory effort: labored, accessory muscle use Respiratory: bilateral: diminished, rhonchi - Cardiovascular Heart Sounds: Present: S1 & S2. Absent: rub, click - Extremities Extremities: pulses symmetrical, No edema Peripheral Pulses: within normal limits - Abdominal General gastrointestinal: Present: soft, non-tender, non-distended, normal bowel sounds Female genitourinary: Present: normal - Integumentary Integumentary: Present: clear, warm, dry - Musculoskeletal Musculoskeletal: generalized weakness - Psychiatric Psychiatric: appropriate mood/affect, intact judgment & insight - Neurologic Neurologic: CNII-XII intact, moves all extremities Results - Labs CBC & Chem 7: 07/22/20 16:00 07/22/20 18:21 Labs: Abnormal lab results 07/22/20 07/22/20 07/22/20 Range/Units 16:00 16:00 18:21 MCH 26 L (28-32) pg Lymph % (Auto) 7.7 L (13.4-35.0) % Lymph # (Auto) 0.6 L (1.2-5.4) K/mm3 Seg Neutrophils % 89.7 H (40.0-70.0) % D-Dimer 978.00 H (0-234) ng/mlDDU Sodium 133 L (137-145) mmol/L Chloride 96.1 L (98-107) mmol/L Glucose 340 H (65-100) mg/dL Albumin 3.5 L (3.9-5) g/dL Assessment and Plan - Patient Problems (1) Sepsis Current Visit: Yes Status: Acute Plan to address problem: Sepsis protocol: CBC, CMP, blood culture, IV antibiotic therapy, IV fluid resuscitation therapy as clinically indicated. Care will be taken to avoid fluid overload overload in the patient with suspected coronavirus infection. Serial lactic acid level, maintain mean arterial pressure greater than or equal to 65, serial lactic acid level. (2) Acute hypoxemic respiratory failure Current Visit: Yes Status: Acute Plan to address problem: Supplemental oxygen, pulse oximetry, nebulizer therapy, prone positioning while in bed, chest x-ray. (3) Bilateral pneumonia Current Visit: Yes Status: Acute Plan to address problem: Pneumonia protocol: Chest x-ray, CBC, CMP, IV antibiotic therapy, supplemental oxygen, pulse oximetry, blood cultures. Nebulizer therapy. (4) Diabetes Current Visit: No Status: Acute Plan to address problem: Sign scale insulin therapy, Accu-Chek, hypoglycemia protocol, consistent carbohydrate diet. (5) HTN (hypertension) Current Visit: No Status: Acute Qualifiers: Hypertension type: essential hypertension Qualified Code(s): I10 - Essential (primary) hypertension Plan to address problem: Monitor blood pressure every shift, continue medical management. (6) Obesity hypoventilation syndrome Current Visit: No Status: Acute Plan to address problem: Supplemental oxygen, pulse oximetry, chest x-ray, balanced diet, increase physical activity at discharge, outpatient pulmonary follow-up for sleep study. (7) DVT prophylaxis Current Visit: Yes Status: Acute Plan to address problem: SCD to bilateral lower extremities while in bed, prophylactic anticoagulation.
[2020-07-22 19:19] LABS: C-Reactive Protein 10.2 mg/dL (0.00-1.30)
[2020-07-22] MEDS ORDERED: cefTRIAXone/NS 2 GM/100 ML 2 GM/100 ML BAG IV SCH (20:00)
[2020-07-22] MEDS ORDERED: HEPARIN 5,000 UNIT/1 ML VIAL SUB-Q SCH (22:00)
[2020-07-22] MEDS: methylPREDNISolone Sod Succinate 40 MG/1 ML INJ IV SCH (22:00)
[2020-07-22] MEDS: ACETAMINOPHEN 325 MG TAB PO PRN (22:00)
[2020-07-22] MEDS: SODIUM CHLORIDE 0.9% 1000 ML 1,000 ML IV SCH (22:01)
[2020-07-22] MEDS: INSULIN REGULAR, HUMAN 100 UNIT/ML 3ML VIAL SUB-Q SCH (22:02)
[2020-07-22] MEDS: FAMOTIDINE 10 MG TAB PO SCH (22:02)
[2020-07-22] MEDS: HEPARIN 5,000 UNIT/1 ML VIAL SUB-Q SCH (22:03)
[2020-07-23] MEDS: methylPREDNISolone Sod Succinate 40 MG/1 ML INJ IV SCH ×3 (05:36→21:50)
[2020-07-23] MEDS: ACETAMINOPHEN 325 MG TAB PO PRN (08:21)
[2020-07-23] MEDS: INSULIN REGULAR, HUMAN 100 UNIT/ML 3ML VIAL SUB-Q SCH ×4 (08:28→21:51)
--- NOTE | 2020-07-23 08:40 | Progress Note ---
Assessment and Plan Assessment and plan: Sepsis Sepsis protocol: CBC, CMP, blood culture, IV antibiotic therapy, IV fluid resuscitation therapy as clinically indicated. Care will be taken to avoid fluid overload overload in the patient with suspected coronavirus infection. Serial lactic acid level, maintain mean arterial pressure greater than or equal to 65, serial lactic acid level. Acute hypoxemic respiratory failure Supplemental oxygen, pulse oximetry, nebulizer therapy, prone positioning while in bed, chest x-ray. Suspected COVID-19 bilateral pneumonia Pneumonia protocol: Chest x-ray, CBC, CMP, IV antibiotic therapy, supplemental oxygen, pulse oximetry, blood cultures. Nebulizer therapy. Diabetes Sign scale insulin therapy, Accu-Chek, hypoglycemia protocol, consistent carbohydrate diet. HTN (hypertension) Monitor blood pressure every shift, continue medical management. Obesity hypoventilation syndrome Supplemental oxygen, pulse oximetry, chest x-ray, balanced diet, increase physical activity at discharge, outpatient pulmonary follow-up for sleep study. DVT prophylaxis SCD to bilateral lower extremities while in bed, prophylactic anticoagulation. 07/23/2020. Await COVID-19 testing. D-dimer elevated at 978. Check CTA of chest to rule out PE. Elevated BG likely related to steroids. Start Lantus at bedtime. Continue sliding scale regular insulin and Accu-Cheks. Continue IV antibiotics per ID recommendations. Follow-up procalcitonin levels. History Interval history: No new issues overnight Hospitalist Physical - Constitutional Vitals: Temp Pulse Resp BP Pulse Ox 99.0 F 79 20 138/73 99 07/23/20 05:19 07/23/20 05:19 07/23/20 05:19 07/23/20 05:19 07/23/20 05:19 General appearance: Present: no acute distress, obese - EENT Eyes: Present: PERRL, EOM intact ENT: hearing intact, clear oral mucosa, dentition normal - Neck Neck: Present: supple, normal ROM - Respiratory Respiratory effort: normal Respiratory: bilateral: CTA - Cardiovascular Rhythm: regular Heart Sounds: Present: S1 & S2. Absent: gallop, rub - Extremities Extremities: no ischemia, No edema, Full ROM - Abdominal General gastrointestinal: soft, non-tender, non-distended, normal bowel sounds - Integumentary Integumentary: Present: clear, warm, dry - Neurologic Neurologic: CNII-XII intact, moves all extremities Results - Labs CBC & Chem 7: 07/22/20 16:00 07/22/20 18:21 Labs: Laboratory Last Values WBC 8.2 K/mm3 (4.5-11.0) 07/22/20 16:00 RBC 4.50 M/mm3 (3.65-5.03) 07/22/20 16:00 Hgb 11.8 gm/dl (10.1-14.3) 07/22/20 16:00 Hct 35.8 % (30.3-42.9) 07/22/20 16:00 MCV 80 fl (79-97) 07/22/20 16:00 MCH 26 pg (28-32) L 07/22/20 16:00 MCHC 33 % (30-34) 07/22/20 16:00 RDW 15.1 % (13.2-15.2) 07/22/20 16:00 Plt Count 353 K/mm3 (140-440) 07/22/20 16:00 Lymph % (Auto) 7.7 % (13.4-35.0) L 07/22/20 16:00 [place] % (Auto) 2.2 % (0.0-7.3) 07/22/20 16:00 Eos % (Auto) 0.1 % (0.0-4.3) 07/22/20 16:00 Baso % (Auto) 0.3 % (0.0-1.8) 07/22/20 16:00 Lymph # (Auto) 0.6 K/mm3 (1.2-5.4) L 07/22/20 16:00 [place] # (Auto) 0.2 K/mm3 (0.0-0.8) 07/22/20 16:00 Eos # (Auto) 0.0 K/mm3 (0.0-0.4) 07/22/20 16:00 Baso # (Auto) 0.0 K/mm3 (0.0-0.1) 07/22/20 16:00 Seg Neutrophils % 89.7 % (40.0-70.0) H 07/22/20 16:00 Seg Neutrophils # 7.4 K/mm3 (1.8-7.7) 07/22/20 16:00 D-Dimer 978.00 ng/mlDDU (0-234) H 07/22/20 18:21 Sodium 133 mmol/L (137-145) L 07/22/20 16:00 Potassium 3.6 mmol/L (3.6-5.0) 07/22/20 16:00 Chloride 96.1 mmol/L (98-107) L 07/22/20 16:00 Carbon Dioxide 24 mmol/L (22-30) 07/22/20 16:00 Anion Gap 17 mmol/L 07/22/20 16:00 BUN 12 mg/dL (7-17) 07/22/20 16:00 Creatinine 1.0 mg/dL (0.6-1.2) 07/22/20 16:00 Estimated GFR > 60 ml/min 07/22/20 16:00 BUN/Creatinine Ratio 12 % 07/22/20 16:00 Glucose 323 mg/dL (65-100) H 07/22/20 18:21 POC Glucose 345 mg/dL (70-105) H 07/23/20 08:02 Lactic Acid 1.30 mmol/L (0.7-2.0) 07/23/20 05:43 Calcium 8.6 mg/dL (8.4-10.2) 07/22/20 16:00 Ferritin 407.2 ng/mL (10.0-200.0) H 07/22/20 18:21 Total Bilirubin 0.40 mg/dL (0.1-1.2) 07/22/20 16:00 AST 13 units/L (5-40) 07/22/20 16:00 ALT 17 units/L (7-56) 07/22/20 16:00 Alkaline Phosphatase 94 units/L (35-129) 07/22/20 16:00 Lactate Dehydrogenase 200 units/L (91-180) H 07/22/20 18:21 C-Reactive Protein 10.20 mg/dL (0.00-1.30) H 07/22/20 18:21 Total Protein 8.0 g/dL (6.3-8.2) 07/22/20 16:00 Albumin 3.5 g/dL (3.9-5) L 07/22/20 16:00 Albumin/Globulin Ratio 0.8 % 07/22/20 16:00 Microbiology: Microbiology 07/22/20 18:21 Peripheral/Venous Blood Culture - Preliminary Culture in Progress 07/22/20 18:30 Peripheral/Venous Blood Culture - Preliminary Culture in Progress [place]/IV: Voiding Method Toilet IV Catheter Type [Right Hand] INT / Saline Lock Active Medications - Current Medications Current Medications: Generic Name Dose Route Start Last Admin Trade Name Freq PRN Reason Stop Dose Admin Acetaminophen 650 mg 07/22/20 19:12 07/23/20 08:21 Acetaminophen 325 Mg Tab PO 650 mg Q4H PRN Administration Pain MILD(1-3)/Fever >100.5/JEFFERY Albuterol 2.5 mg 07/22/20 19:12 Albuterol 2.5 Mg/3 Ml Nebu IH Q4HRT PRN Shortness Of Breath Famotidine 10 mg 07/22/20 22:00 07/22/20 22:02 Famotidine 10 Mg Tab PO 10 mg BID GILDA Administration Heparin Sodium (Porcine) 5,000 unit 07/22/20 22:00 07/22/20 22:03 Heparin 5,000 Unit/1 Ml Vial SUB-Q 5,000 unit Q12HR GILDA Administration Hydromorphone HCl 0.25 mg 07/22/20 19:12 Hydromorphone 1 Mg/1 Ml Inj IV Q4H PRN Pain, Moderate (4-6) Azithromycin 500 mg/ Sodium 250 mls @ 250 mls/hr 07/23/20 20:00 Chloride IV Q24H GILDA Protocol Ceftriaxone Sodium 2 gm in 100 mls @ 200 mls/hr 07/23/20 20:00 Rocephin/Ns 2 Gm/100 Ml IV Q24H GILDA Protocol Sodium Chloride 1,000 mls @ 75 mls/hr 07/22/20 21:15 07/22/20 22:01 Nacl 0.9% 1000 Ml IV 75 mls/hr DIRECT GILDA Administration Insulin Human Regular 0 unit 07/22/20 22:00 07/23/20 08:28 Insulin Regular, Human 100 Unit/Ml 3ml Vial SUB-Q 6 unit ACHS GILDA Administration Protocol Methylprednisolone Sodium Succinate 40 mg 07/22/20 22:00 07/23/20 05:36 Methylprednisolone Sod Succinate 40 Mg/1 Ml Inj IV 40 mg Q8HR GILDA Administration Ondansetron HCl 4 mg 07/22/20 19:12 Ondansetron 4 Mg/2 Ml Inj IV Q8H PRN Nausea And Vomiting Sodium Chloride 10 ml 07/22/20 22:00 07/22/20 22:03 Sodium Chloride 0.9% 10 Ml Flush Syringe IV 10 ml BID GILDA Administration Sodium Chloride 10 ml 07/22/20 19:12 Sodium Chloride 0.9% 10 Ml Flush Syringe IV PRN PRN LINE FLUSH
[2020-07-23] MEDS: FAMOTIDINE 10 MG TAB PO SCH ×2 (09:13→21:50)
[2020-07-23] MEDS: HEPARIN 5,000 UNIT/1 ML VIAL SUB-Q SCH (09:13)
[2020-07-23] MEDS: SODIUM CHLORIDE 0.9% 1000 ML 1,000 ML IV SCH (09:32)
--- NOTE | 2020-07-23 14:29 | Cat Scan Report ---
CT angio chest INDICATION / CLINICAL INFORMATION: Elevated d-dimer. Shortness of breath.. TECHNIQUE: Axial CT images were obtained after injection of Omnipaque 350, 100 cc IV contrast using CTA protocol . 3 plane MIP / 3D reconstructions were produced. All CT scans at this location are performed using C T dose reduction for ALARA by means of automated exposure control. COMPARISON: Chest x-ray previous day. FINDINGS: Both lungs contain patchy infiltrate typical of pneumonia. Negative for dominant mass or pleural flui d. Evaluation the mediastinum demonstrates thyroid nodularity. There is possibly a dominant nodule at th e inferior pole the left lobe measuring 2.9 x 5 cm. Alternatively, this may represent an anatomical v ariant. The right lobe contains a 1.8 cm low density nodule at the midpole. No mediastinal mass or ad enopathy. Imaging of the upper abdomen is unremarkable. Negative for aneurysm, dissection or pulmonary embolus. IMPRESSION: 1. Patchy bilateral pneumonia. 2. Incidental thyroid nodule. Incidental thyroid nodule measuring 5 cm located in left lower pole. See below for follow-up recommen dation. Nonpalpable nodules detected on US or other anatomic imaging studies are termed incidentally discover ed nodules or incidentalomas. Nonpalpable nodules have the same risk of malignancy as palpable nodule s with the same size. Generally, only nodules >1 cm should be evaluated, since they have a greater po tential to be clinically significant cancers. (MATHEW, 2009). Follow up for incidental thyroid nodules <1 cm is not recommended. In patients <35 years with an incidental thyroid nodule detected on CT, MRI, or extrathyroidal ultras ound, dedicated thyroid ultrasound is recommended if the nodule is 1 cm, has no suspicious imaging fe atures, and if the patient has normal life expectancy. In patients 35 years with an incidental thyroid nodule detected on CT, MRI, or extrathyroidal ultraso und, dedicated thyroid ultrasound is recommended if the nodule is 1.5 cm, has no suspicious imaging f eatures, and if the patient has normal life expectancy. Signer Name: Kaiden Young MD Signed: 07/23/2020 2:24 PM Workstation Name: [id number]
[2020-07-23] MEDS ORDERED: VANCOMYCIN 2,000 MG in SODIUM CHLORIDE 0.9% 500 ML 500 ML IV ONE (15:00)
[2020-07-23] MEDS ORDERED: VANCOMYCIN PHARMACY TO DOSE IV SCH (15:00)
[2020-07-23] MEDS ORDERED: VANCOMYCIN/NS 1 GM/250 ML 1 GM/250 ML BAG IV SCH (15:00)
[2020-07-23] MEDS: INSULIN NPH/REGULAR 70/30 INJ SUB-Q SCH (19:14)
[2020-07-23] MEDS ORDERED: cefTRIAXone/NS 2 GM/100 ML 2 GM/100 ML BAG IV SCH (20:00)
[2020-07-23] MEDS ORDERED: AZITHROMYCIN 500 MG in SODIUM CHLORIDE 0.9% 250ML 250 ML IV SCH (20:00)
[2020-07-23] MEDS: guaiFENesin/CODEINE 100-10MG ORAL LIQD 5 ML PO PRN (21:50)
[2020-07-23] MEDS: ENOXAPARIN 40 MG/0.4 ML INJ SUB-Q SCH (21:50)
[2020-07-23] MEDS ORDERED: INSULIN GLARGINE 100 UNITS/ML SUB-Q SCH (22:00)
[2020-07-24] MEDS: VANCOMYCIN 1,500 MG in SODIUM CHLORIDE 0.9% 500 ML 500 ML IV SCH ×2 (02:02→14:30)
[2020-07-24] MEDS ORDERED: INSULIN REGULAR, HUMAN 100 UNIT/ML 3ML VIAL SUB-Q ONE (02:12)
[2020-07-24] MEDS: methylPREDNISolone Sod Succinate 40 MG/1 ML INJ IV SCH ×3 (05:30→21:14)
[2020-07-24 05:54] LABS: Hematocrit 29.4 % (30.3-42.9); Hemoglobin 9.6 gm/dl (10.1-14.3); Mean Corpuscular HGB Conc 33 % (30-34); Mean Corpuscular Volume 79 fl (79-97); Platelet Count 334 K/mm3 (140-440); Red Blood Count 3.72 M/mm3 (3.65-5.03)
[2020-07-24 05:55] LABS: Basophils # (Auto) 0.1 K/mm3 (0.0-0.1); Basophils % (Auto) 0.6 % (0.0-1.8); Lymphocytes # (Auto) 0.8 K/mm3 (1.2-5.4); Lymphocytes % (Auto) 5.3 % (13.4-35.0); Monocytes # (Auto) 0.4 K/mm3 (0.0-0.8)
[2020-07-24 06:08] LABS: BUN/Creatinine Ratio 19; Blood Urea Nitrogen 19 mg/dL (7-17); Calcium 8.3 mg/dL (8.4-10.2); Hemolysis Index 0
--- NOTE | 2020-07-24 08:04 | Progress Note ---
Assessment and Plan Assessment and plan: Sepsis Sepsis protocol: CBC, CMP, blood culture, IV antibiotic therapy, IV fluid resuscitation therapy as clinically indicated. Care will be taken to avoid fluid overload overload in the patient with suspected coronavirus infection. Serial lactic acid level, maintain mean arterial pressure greater than or equal to 65, serial lactic acid level. Acute hypoxemic respiratory failure Supplemental oxygen, pulse oximetry, nebulizer therapy, prone positioning while in bed, chest x-ray. COVID-19 bilateral pneumonia Pneumonia protocol: Chest x-ray, CBC, CMP, IV antibiotic therapy, supplemental oxygen, pulse oximetry, blood cultures. Nebulizer therapy. Diabetes Sign scale insulin therapy, Accu-Chek, hypoglycemia protocol, consistent carbohydrate diet. HTN (hypertension) Monitor blood pressure every shift, continue medical management. Obesity hypoventilation syndrome Supplemental oxygen, pulse oximetry, chest x-ray, balanced diet, increase physical activity at discharge, outpatient pulmonary follow-up for sleep study. Thyroid nodule DVT prophylaxis SCD to bilateral lower extremities while in bed, prophylactic anticoagulation. 07/23/2020. Await COVID-19 testing. D-dimer elevated at 978. Check CTA of chest to rule out PE. Elevated BG likely related to steroids. Start Lantus at bedtime. Continue sliding scale regular insulin and Accu-Cheks. Continue IV antibiotics per ID recommendations. Follow-up procalcitonin levels. 07/24/2020. Covid testing + 07/23/2020. CTA of the chest revealed patchy bilateral pneumonia and an incidental thyroid nodule. No evidence of PE. Procalcitonin level normal. However, blood cultures suggestive of bacteremia but may be a contaminant (1/4 bottles GPC). Await ID and sensitivities continue antibiotics until ID consult evaluation. Evaluate with exercise pulse oximetry. History Interval history: No new issues overnight Hospitalist Physical - Constitutional Vitals: Temp Pulse Resp BP Pulse Ox 98.4 F 64 17 148/79 96 07/24/20 05:21 07/24/20 05:21 07/24/20 05:21 07/24/20 05:21 07/24/20 05:21 General appearance: Present: no acute distress, obese - EENT Eyes: Present: PERRL, EOM intact ENT: hearing intact, clear oral mucosa, dentition normal - Neck Neck: Present: supple, normal ROM - Respiratory Respiratory effort: normal Respiratory: bilateral: CTA - Cardiovascular Rhythm: regular Heart Sounds: Present: S1 & S2. Absent: gallop, rub - Extremities Extremities: no ischemia, No edema, Full ROM - Abdominal General gastrointestinal: soft, non-tender, non-distended, normal bowel sounds - Integumentary Integumentary: Present: clear, warm, dry - Neurologic Neurologic: CNII-XII intact, moves all extremities Results - Labs CBC & Chem 7: 07/24/20 04:15 07/24/20 04:15 Labs: Laboratory Last Values WBC 14.2 K/mm3 (4.5-11.0) H 07/24/20 04:15 RBC 3.72 M/mm3 (3.65-5.03) 07/24/20 04:15 Hgb 9.6 gm/dl (10.1-14.3) L 07/24/20 04:15 Hct 29.4 % (30.3-42.9) L D 07/24/20 04:15 MCV 79 fl (79-97) 07/24/20 04:15 MCH 26 pg (28-32) L 07/24/20 04:15 MCHC 33 % (30-34) 07/24/20 04:15 RDW 15.0 % (13.2-15.2) 07/24/20 04:15 Plt Count 334 K/mm3 (140-440) 07/24/20 04:15 Lymph % (Auto) 5.3 % (13.4-35.0) L 07/24/20 04:15 [place] % (Auto) 3.0 % (0.0-7.3) 07/24/20 04:15 Eos % (Auto) 0.0 % (0.0-4.3) 07/24/20 04:15 Baso % (Auto) 0.6 % (0.0-1.8) 07/24/20 04:15 Lymph # (Auto) 0.8 K/mm3 (1.2-5.4) L 07/24/20 04:15 [place] # (Auto) 0.4 K/mm3 (0.0-0.8) 07/24/20 04:15 Eos # (Auto) 0.0 K/mm3 (0.0-0.4) 07/24/20 04:15 Baso # (Auto) 0.1 K/mm3 (0.0-0.1) 07/24/20 04:15 Seg Neutrophils % 91.1 % (40.0-70.0) H 07/24/20 04:15 Seg Neutrophils # 12.9 K/mm3 (1.8-7.7) H 07/24/20 04:15 D-Dimer 978.00 ng/mlDDU (0-234) H 07/22/20 18:21 Sodium 137 mmol/L (137-145) 07/24/20 04:15 Potassium 4.1 mmol/L (3.6-5.0) 07/24/20 04:15 Chloride 99.8 mmol/L (98-107) 07/24/20 04:15 Carbon Dioxide 25 mmol/L (22-30) 07/24/20 04:15 Anion Gap 16 mmol/L 07/24/20 04:15 BUN 19 mg/dL (7-17) H 07/24/20 04:15 Creatinine 1.0 mg/dL (0.6-1.2) 07/24/20 04:15 Estimated GFR > 60 ml/min 07/24/20 04:15 BUN/Creatinine Ratio 19 % 07/24/20 04:15 Glucose 415 mg/dL (65-100) H 07/24/20 04:15 POC Glucose 316 mg/dL (70-105) H 07/24/20 07:50 Lactic Acid 1.30 mmol/L (0.7-2.0) 07/23/20 05:43 Calcium 8.3 mg/dL (8.4-10.2) L 07/24/20 04:15 Ferritin 407.2 ng/mL (10.0-200.0) H 07/22/20 18:21 Total Bilirubin 0.40 mg/dL (0.1-1.2) 07/22/20 16:00 AST 13 units/L (5-40) 07/22/20 16:00 ALT 17 units/L (7-56) 07/22/20 16:00 Alkaline Phosphatase 94 units/L (35-129) 07/22/20 16:00 Lactate Dehydrogenase 200 units/L (91-180) H 07/22/20 18:21 C-Reactive Protein 10.20 mg/dL (0.00-1.30) H 07/22/20 18:21 Total Protein 8.0 g/dL (6.3-8.2) 07/22/20 16:00 Albumin 3.5 g/dL (3.9-5) L 07/22/20 16:00 Albumin/Globulin Ratio 0.8 % 07/22/20 16:00 Procalcitonin 0.07 ng/mL (<0.15) 07/22/20 18:21 Coronavirus (PCR) Positive (Negative) A 07/23/20 10:11 Microbiology: Microbiology 07/22/20 18:21 Peripheral/Venous Blood Culture - Preliminary NO GROWTH AFTER 24 HOURS 07/22/20 18:30 Peripheral/Venous Blood Culture - Preliminary [place]/IV: Voiding Method Toilet IV Catheter Type [Right Hand] INT / Saline Lock Active Medications - Current Medications Current Medications: Generic Name Dose Route Start Last Admin Trade Name Freq PRN Reason Stop Dose Admin Acetaminophen 650 mg 07/22/20 19:12 07/23/20 08:21 Acetaminophen 325 Mg Tab PO 650 mg Q4H PRN Administration Pain MILD(1-3)/Fever >100.5/JEFFERY Albuterol 2.5 mg 07/22/20 19:12 Albuterol 2.5 Mg/3 Ml Nebu IH Q4HRT PRN Shortness Of Breath Enoxaparin Sodium 40 mg 07/23/20 22:00 07/23/20 21:50 Enoxaparin 40 Mg/0.4 Ml Inj SUB-Q 40 mg QDAY@2200 GILDA Administration Protocol Famotidine 10 mg 07/22/20 22:00 07/23/20 21:50 Famotidine 10 Mg Tab PO 10 mg BID GILDA Administration Hydromorphone HCl 0.25 mg 07/22/20 19:12 07/22/20 19:48 Hydromorphone 1 Mg/1 Ml Inj IV 0.25 mg Q4H PRN Administration Pain, Moderate (4-6) Azithromycin 500 mg/ Sodium 250 mls @ 250 mls/hr 07/23/20 20:00 07/23/20 21:50 Chloride IV 250 mls/hr Q24H GILDA Administration Protocol Ceftriaxone Sodium 2 gm in 100 mls @ 200 mls/hr 07/23/20 20:00 07/23/20 21:49 Rocephin/Ns 2 Gm/100 Ml IV 200 mls/hr Q24H GILDA Administration Protocol Vancomycin HCl 1,500 mg/ 530 mls @ 333.333 mls/hr 07/24/20 03:00 07/24/20 02:02 Sodium Chloride IV 333.333 mls/hr Q12H GILDA Administration Insulin Human Isoph/Insulin Regular 40 unit 07/23/20 18:30 07/23/20 19:14 Insulin Nph/Regular 70/30 Inj SUB-Q 40 unit QPMDIAB GILDA Administration Insulin Human Isoph/Insulin Regular 45 unit 07/24/20 08:00 Insulin Nph/Regular 70/30 Inj SUB-Q QDDIAB GILDA Insulin Human Regular 0 unit 07/22/20 22:00 07/23/20 21:51 Insulin Regular, Human 100 Unit/Ml 3ml Vial SUB-Q 8 unit ACHS GILDA Administration Protocol Methylprednisolone Sodium Succinate 40 mg 07/22/20 22:00 07/24/20 05:30 Methylprednisolone Sod Succinate 40 Mg/1 Ml Inj IV 40 mg Q8HR GILDA Administration Ondansetron HCl 4 mg 07/22/20 19:12 Ondansetron 4 Mg/2 Ml Inj IV Q8H PRN Nausea And Vomiting Pseudoephedrine/Acetam/Chlorphenir 10 ml 07/23/20 21:37 07/23/20 21:50 Guaifenesin/Codeine 100-10mg Oral Liqd 5 Ml PO 10 ml Q4H PRN Administration Cough Sodium Chloride 10 ml 07/22/20 22:00 07/23/20 21:51 Sodium Chloride 0.9% 10 Ml Flush Syringe IV 10 ml BID GILDA Administration Sodium Chloride 10 ml 07/22/20 19:12 Sodium Chloride 0.9% 10 Ml Flush Syringe IV PRN PRN LINE FLUSH Nutrition/Malnutrition Assess - Dietary Evaluation Nutrition/Malnutrition Findings: Nutrition Notes Start: 07/23/20 13:57 Freq: Status: Active Protocol: Document 07/23/20 13:57 ELVA (Rec: 07/23/20 14:00 ELVA [id number]) Nutrition Notes 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 Unable to reach pt via phone. Burn Absent Trauma Absent Minimum of two criteria No Is patient on ventilator? No Is Patient Ambulatory and/or Out of Bed Yes REE-([place]-ambulatory/OOB) [ 2432.469 [id number]] Kcal/Kg value to use for calculation 16 Approximate Energy Requirements Using 1920 kcal/Kg Calculation Used for Recommendations Kcal/kg Additional Notes Pro needs 0.8-1g/kg adjBW: 76- 95g/day Fluid needs 1ml/kcal Nutrition Intervention Follow-Up By: 07/26/20 Additional Comments F/U: MST assessment, intakes
[2020-07-24] MEDS: INSULIN NPH/REGULAR 70/30 INJ SUB-Q SCH ×2 (09:16→19:00)
[2020-07-24] MEDS: INSULIN REGULAR, HUMAN 100 UNIT/ML 3ML VIAL SUB-Q SCH ×4 (09:16→22:31)
[2020-07-24] MEDS: FAMOTIDINE 10 MG TAB PO SCH ×2 (10:21→21:14)
[2020-07-24] MEDS: guaiFENesin/CODEINE 100-10MG ORAL LIQD 5 ML PO PRN ×3 (10:21→21:13)
--- NOTE | 2020-07-24 14:13 | Consultation ---
History of Present Illness - Reason for Consult Consult date: 07/24/20 COVID Requesting physician: ALDO PAULINO - History of Present Illness The patient is a 59-year-old female with hypertension, obesity, diabetes, asthma was admitted to the hospital with symptoms of not feeling well for the past 1 week. She was having fever, shortness of breath, cough, decreased exercise tolerance. She was also noted to be hypoxic. She tested positive for COVID-19. Infectious diseases was consulted for additional evaluation. She was started on steroids. She is also on empiric antibiotics. She remains on supplemental oxygen as per chart review. Review of Systems: reviewed in the chart, unable to obtain, minimize risk of transmission Past History Past Medical History: diabetes, GERD, hypertension, hyperlipidemia, other (See HPI) Past Surgical History: Other (Tubal ligation, throat polyps) Social history: single. denies: smoking, alcohol abuse, prescription drug abuse Family history: diabetes, hypertension Medications and Allergies Allergies Allergy/AdvReac Type Severity Reaction Status Date / Time No Known Allergies Allergy Verified 05/05/15 11:11 Home Medications Medication Instructions Recorded Confirmed Last Taken Type Insulin NPH/Regular [NovoLIN 70/30] 35 unit SQ QHS 03/28/17 07/22/20 03/04/19 09:00 History metFORMIN [Glucophage] 1,000 mg PO BID 03/28/17 07/22/20 03/04/19 09:00 History Albuterol Sulfate [Proventil Hfa] 2 puff IH PRN PRN 02/24/19 07/22/20 Unknown History AtorvaSTATin [Lipitor] 20 mg PO QHS 02/24/19 07/22/20 03/04/19 21:00 History Ibuprofen [Motrin 600 MG tab] 800 mg PO PRN PRN 02/24/19 07/22/20 03/04/19 16:30 History Insulin NPH Hum/Reg Insulin Hm 40 unit SQ QAM 02/24/19 07/22/20 03/04/19 09:00 History [Relion Novolin 70-30 Vial] glipiZIDE [Glucotrol] 10 mg PO BID 02/24/19 07/22/20 03/04/19 18:00 History hydroCHLOROthiazide [HCTZ] 25 mg PO QDAY 02/24/19 07/22/20 03/04/19 09:00 History Oxycodone HCl/Acetaminophen 1 each PO Q6HR PRN #30 tablet 03/09/19 07/22/20 Unknown Rx [Percocet 7.5/325 mg] Active Meds: Active Medications Acetaminophen (Acetaminophen 325 Mg Tab) 650 mg PO Q4H PRN PRN Reason: Pain MILD(1-3)/Fever >100.5/JEFFERY Last Admin: 07/23/20 08:21 Dose: 650 mg Documented by: Albuterol (Albuterol 2.5 Mg/3 Ml Nebu) 2.5 mg IH Q4HRT PRN PRN Reason: Shortness Of Breath Enoxaparin Sodium (Enoxaparin 40 Mg/0.4 Ml Inj) 40 mg SUB-Q QDAY@2200 GILDA; Protocol Last Admin: 07/23/20 21:50 Dose: 40 mg Documented by: Famotidine (Famotidine 10 Mg Tab) 10 mg PO BID GILDA Last Admin: 07/24/20 10:21 Dose: 10 mg Documented by: Hydromorphone HCl (Hydromorphone 1 Mg/1 Ml Inj) 0.25 mg IV Q4H PRN PRN Reason: Pain, Moderate (4-6) Last Admin: 07/22/20 19:48 Dose: 0.25 mg Documented by: Azithromycin 500 mg/ Sodium (Chloride) 250 mls @ 250 mls/hr IV Q24H GILDA; Protocol Stop: 07/26/20 20:59 Last Admin: 07/23/20 21:50 Dose: 250 mls/hr Documented by: Ceftriaxone Sodium (Rocephin/Ns 2 Gm/100 Ml) 2 gm in 100 mls @ 200 mls/hr IV Q24H GILDA; Protocol Last Admin: 07/23/20 21:49 Dose: 200 mls/hr Documented by: Vancomycin HCl 1,500 mg/ (Sodium Chloride) 530 mls @ 333.333 mls/hr IV Q12H GILDA Last Admin: 07/24/20 02:02 Dose: 333.333 mls/hr Documented by: Insulin Human Isoph/Insulin Regular (Insulin Nph/Regular 70/30 Inj) 40 unit SUB-Q QPMDIAB GILDA Last Admin: 07/23/20 19:14 Dose: 40 unit Documented by: Insulin Human Isoph/Insulin Regular (Insulin Nph/Regular 70/30 Inj) 45 unit SUB-Q QDDIAB [facility] Last Admin: 07/24/20 09:16 Dose: 45 unit Documented by: Insulin Human Regular (Insulin Regular, Human 100 Unit/Ml 3ml Vial) 0 unit SUB- Q ACHS [facility]; Protocol Last Admin: 07/24/20 12:33 Dose: 8 unit Documented by: Methylprednisolone Sodium Succinate (Methylprednisolone Sod Succinate 40 Mg/1 Ml Inj) 40 mg IV Q8HR [facility] Last Admin: 07/24/20 05:30 Dose: 40 mg Documented by: Ondansetron HCl (Ondansetron 4 Mg/2 Ml Inj) 4 mg IV Q8H PRN PRN Reason: Nausea And Vomiting Pseudoephedrine/Acetam/Chlorphenir (Guaifenesin/Codeine 100-10mg Oral Liqd 5 Ml) 10 ml PO Q4H PRN PRN Reason: Cough Last Admin: 07/24/20 10:21 Dose: 10 ml Documented by: Sodium Chloride (Sodium Chloride 0.9% 10 Ml Flush Syringe) 10 ml IV BID [facility] Last Admin: 07/24/20 09:17 Dose: 10 ml Documented by: Sodium Chloride (Sodium Chloride 0.9% 10 Ml Flush Syringe) 10 ml IV PRN PRN PRN Reason: LINE FLUSH Physical Examination - Physical Exam Narrative exam: Physical Exam (reviewed in chart to minimize risk of transmission) Constitutional: deferred Head, Ears, Nose: deferred Eyes: deferred Neck: deferred Oral: deferred Cardiovascular: deferred Respiratory: deferred GI: deferred Musculoskeletal: deferred Skin: deferred Hem/Lymphatic: deferred Psych: deferred Neurological: deferred - Constitutional Vitals: Vital Signs Temp Pulse Resp BP Pulse Ox 97.8 F 81 18 144/81 95 07/24/20 13:11 07/24/20 13:11 07/24/20 13:11 07/24/20 13:11 07/24/20 13:29 Temperature -Last 24 Hours Temperature 97.8 F Temperature 98.4 F Temperature 98.9 F Temperature 98.8 F Results - Labs CBC & Chem 7: 07/24/20 04:15 07/24/20 04:15 Labs: Abnormal lab results 07/23/20 07/23/20 07/23/20 Range/Units 10:11 16:57 17:51 WBC (4.5-11.0) K/mm3 Hgb (10.1-14.3) gm/dl Hct (30.3-42.9) % MCH (28-32) pg Lymph % (Auto) (13.4-35.0) % Lymph # (Auto) (1.2-5.4) K/mm3 Seg Neutrophils % (40.0-70.0) % Seg Neutrophils # (1.8-7.7) K/mm3 BUN (7-17) mg/dL Glucose 585 H* (65-100) mg/dL POC Glucose 535 H (70-105) mg/dL Calcium (8.4-10.2) mg/dL Coronavirus (PCR) Positive A (Negative) 07/23/20 07/23/20 07/24/20 Range/Units 21:19 23:29 01:09 WBC (4.5-11.0) K/mm3 Hgb (10.1-14.3) gm/dl Hct (30.3-42.9) % MCH (28-32) pg Lymph % (Auto) (13.4-35.0) % Lymph # (Auto) (1.2-5.4) K/mm3 Seg Neutrophils % (40.0-70.0) % Seg Neutrophils # (1.8-7.7) K/mm3 BUN (7-17) mg/dL Glucose 575 H* (65-100) mg/dL POC Glucose 568 H 447 H (70-105) mg/dL Calcium (8.4-10.2) mg/dL Coronavirus (PCR) (Negative) 07/24/20 07/24/20 07/24/20 Range/Units 04:15 04:15 04:17 WBC 14.2 H (4.5-11.0) K/mm3 Hgb 9.6 L (10.1-14.3) gm/dl Hct 29.4 L D (30.3-42.9) % MCH 26 L (28-32) pg Lymph % (Auto) 5.3 L (13.4-35.0) % Lymph # (Auto) 0.8 L (1.2-5.4) K/mm3 Seg Neutrophils % 91.1 H (40.0-70.0) % Seg Neutrophils # 12.9 H (1.8-7.7) K/mm3 BUN 19 H (7-17) mg/dL Glucose 415 H (65-100) mg/dL POC Glucose 356 H (70-105) mg/dL Calcium 8.3 L (8.4-10.2) mg/dL Coronavirus (PCR) (Negative) 07/24/20 07/24/20 Range/Units 07:50 12:02 WBC (4.5-11.0) K/mm3 Hgb (10.1-14.3) gm/dl Hct (30.3-42.9) % MCH (28-32) pg Lymph % (Auto) (13.4-35.0) % Lymph # (Auto) (1.2-5.4) K/mm3 Seg Neutrophils % (40.0-70.0) % Seg Neutrophils # (1.8-7.7) K/mm3 BUN (7-17) mg/dL Glucose (65-100) mg/dL POC Glucose 316 H 377 H (70-105) mg/dL Calcium (8.4-10.2) mg/dL Coronavirus (PCR) (Negative) - Imaging and Cardiology Chest x-ray: report reviewed, image reviewed (b/l patchy infiltrates) Assessment and Plan Cultures: SARS CoV2 PCR: Positive 07/22/2020 blood culture: 1 bottle with GPC A/P: 59-year-old female with hypertension, obesity, diabetes, asthma was admitted to the hospital with symptoms of not feeling well for the past 1 week: #Bilateral pneumonia: Secondary to COVID-19. CTA with patchy pneumonia b/l. #Acute hypoxic respiratory failure: On supplemental oxygen #GPC bacteremia: Could possibly be a contaminant. Follow-up final culture report. #Obesity Recs: -IV/PO Dexamethasone 6 mg daily x 10 days -Ceftriaxone, azithromycin discontinued, procalcitonin is low -Continue IV vancomycin for now, follow-up blood cultures, suspect contaminant -IV remdesivir ordered -prophylactic anticoagulation based on d-dimer per hospital protocol -trend ferritin, LDH, d-dimer, CRP every 2-3 days for risk stratification and to assess disease progression Katy Waddell MD, FACP [facility] O: [phone] F: [phone]
[2020-07-24] MEDS ORDERED: REMDESIVIR 200 MG in SODIUM CHLORIDE 0.9% 250ML 250 ML IV ONE (15:00)
[2020-07-24] MEDS ORDERED: REMDESIVIR 100 MG VIAL IV ONE (15:00)
[2020-07-24] MEDS ORDERED: SODIUM CHLORIDE 0.9% 50 ML IVPB IV ONE (15:00)
[2020-07-24] MEDS: ENOXAPARIN 40 MG/0.4 ML INJ SUB-Q SCH (21:14)
[2020-07-25] MEDS: VANCOMYCIN 1,500 MG in SODIUM CHLORIDE 0.9% 500 ML 500 ML IV SCH ×2 (02:01→16:36)
[2020-07-25] MEDS: methylPREDNISolone Sod Succinate 40 MG/1 ML INJ IV SCH ×3 (05:12→22:29)
[2020-07-25] MEDS: INSULIN NPH/REGULAR 70/30 INJ SUB-Q SCH ×2 (08:02→17:54)
[2020-07-25] MEDS: INSULIN REGULAR, HUMAN 100 UNIT/ML 3ML VIAL SUB-Q SCH ×4 (08:02→22:32)
--- NOTE | 2020-07-25 08:43 | Progress Note ---
Assessment and Plan Assessment and plan: Sepsis Sepsis protocol: CBC, CMP, blood culture, IV antibiotic therapy, IV fluid resuscitation therapy as clinically indicated. Care will be taken to avoid fluid overload overload in the patient with suspected coronavirus infection. Serial lactic acid level, maintain mean arterial pressure greater than or equal to 65, serial lactic acid level. Acute hypoxemic respiratory failure Supplemental oxygen, pulse oximetry, nebulizer therapy, prone positioning while in bed, chest x-ray. COVID-19 bilateral pneumonia Pneumonia protocol: Chest x-ray, CBC, CMP, IV antibiotic therapy, supplemental oxygen, pulse oximetry, blood cultures. Nebulizer therapy. Diabetes Sign scale insulin therapy, Accu-Chek, hypoglycemia protocol, consistent carbohydrate diet. HTN (hypertension) Monitor blood pressure every shift, continue medical management. Obesity hypoventilation syndrome Supplemental oxygen, pulse oximetry, chest x-ray, balanced diet, increase physical activity at discharge, outpatient pulmonary follow-up for sleep study. Thyroid nodule DVT prophylaxis SCD to bilateral lower extremities while in bed, prophylactic anticoagulation. 07/23/2020. Await COVID-19 testing. D-dimer elevated at 978. Check CTA of chest to rule out PE. Elevated BG likely related to steroids. Start Lantus at bedtime. Continue sliding scale regular insulin and Accu-Cheks. Continue IV antibiotics per ID recommendations. Follow-up procalcitonin levels. 07/24/2020. Covid testing + 07/23/2020. CTA of the chest revealed patchy bilateral pneumonia and an incidental thyroid nodule. No evidence of PE. Procalcitonin level normal. However, blood cultures suggestive of bacteremia but may be a contaminant (1/4 bottles GPC). Await ID and sensitivities continue antibiotics until ID consult evaluation. Evaluate with exercise pulse oximetry. 07/25/2020. Covid testing + 07/23/2020. CTA of the chest revealed patchy bilat eral pneumonia and an incidental thyroid nodule. Check TSH, T3, T4. Consider thyroid scan. No evidence of PE. Procalcitonin level normal. However, blood cultures suggestive of bacteremia but may be a contaminant (1/4 bottles GPC). Await ID and sensitivities. Continue antibiotics per ID recommendations. Continue to trend inflammatory markers. Continue dexamethasone and remdesivir. History Interval history: No new issues overnight Hospitalist Physical - Constitutional Vitals: Temp Pulse Resp BP Pulse Ox 98.3 F 50 L 17 137/50 96 07/25/20 04:53 07/25/20 04:53 07/25/20 04:53 07/25/20 04:53 07/25/20 08:34 General appearance: Present: no acute distress, obese - EENT Eyes: Present: PERRL, EOM intact ENT: hearing intact, clear oral mucosa, dentition normal - Neck Neck: Present: supple, normal ROM - Respiratory Respiratory effort: normal Respiratory: bilateral: CTA - Cardiovascular Rhythm: regular Heart Sounds: Present: S1 & S2. Absent: gallop, rub - Extremities Extremities: no ischemia, No edema, Full ROM - Abdominal General gastrointestinal: soft, non-tender, non-distended, normal bowel sounds - Integumentary Integumentary: Present: clear, warm, dry - Neurologic Neurologic: CNII-XII intact, moves all extremities Results - Labs CBC & Chem 7: 07/24/20 04:15 07/24/20 04:15 Labs: Laboratory Last Values WBC 14.2 K/mm3 (4.5-11.0) H 07/24/20 04:15 RBC 3.72 M/mm3 (3.65-5.03) 07/24/20 04:15 Hgb 9.6 gm/dl (10.1-14.3) L 07/24/20 04:15 Hct 29.4 % (30.3-42.9) L D 07/24/20 04:15 MCV 79 fl (79-97) 07/24/20 04:15 MCH 26 pg (28-32) L 07/24/20 04:15 MCHC 33 % (30-34) 07/24/20 04:15 RDW 15.0 % (13.2-15.2) 07/24/20 04:15 Plt Count 334 K/mm3 (140-440) 07/24/20 04:15 Lymph % (Auto) 5.3 % (13.4-35.0) L 07/24/20 04:15 [place] % (Auto) 3.0 % (0.0-7.3) 07/24/20 04:15 Eos % (Auto) 0.0 % (0.0-4.3) 07/24/20 04:15 Baso % (Auto) 0.6 % (0.0-1.8) 07/24/20 04:15 Lymph # (Auto) 0.8 K/mm3 (1.2-5.4) L 07/24/20 04:15 [place] # (Auto) 0.4 K/mm3 (0.0-0.8) 07/24/20 04:15 Eos # (Auto) 0.0 K/mm3 (0.0-0.4) 07/24/20 04:15 Baso # (Auto) 0.1 K/mm3 (0.0-0.1) 07/24/20 04:15 Seg Neutrophils % 91.1 % (40.0-70.0) H 07/24/20 04:15 Seg Neutrophils # 12.9 K/mm3 (1.8-7.7) H 07/24/20 04:15 D-Dimer 978.00 ng/mlDDU (0-234) H 07/22/20 18:21 Sodium 137 mmol/L (137-145) 07/24/20 04:15 Potassium 4.1 mmol/L (3.6-5.0) 07/24/20 04:15 Chloride 99.8 mmol/L (98-107) 07/24/20 04:15 Carbon Dioxide 25 mmol/L (22-30) 07/24/20 04:15 Anion Gap 16 mmol/L 07/24/20 04:15 BUN 19 mg/dL (7-17) H 07/24/20 04:15 Creatinine 1.0 mg/dL (0.6-1.2) 07/24/20 04:15 Estimated GFR > 60 ml/min 07/24/20 04:15 BUN/Creatinine Ratio 19 % 07/24/20 04:15 Glucose 415 mg/dL (65-100) H 07/24/20 04:15 POC Glucose 270 mg/dL (70-105) H 07/25/20 07:43 Lactic Acid 1.30 mmol/L (0.7-2.0) 07/23/20 05:43 Calcium 8.3 mg/dL (8.4-10.2) L 07/24/20 04:15 Ferritin 407.2 ng/mL (10.0-200.0) H 07/22/20 18:21 Total Bilirubin 0.40 mg/dL (0.1-1.2) 07/22/20 16:00 AST 13 units/L (5-40) 07/22/20 16:00 ALT 17 units/L (7-56) 07/22/20 16:00 Alkaline Phosphatase 94 units/L (35-129) 07/22/20 16:00 Lactate Dehydrogenase 200 units/L (91-180) H 07/22/20 18:21 C-Reactive Protein 10.20 mg/dL (0.00-1.30) H 07/22/20 18:21 Total Protein 8.0 g/dL (6.3-8.2) 07/22/20 16:00 Albumin 3.5 g/dL (3.9-5) L 07/22/20 16:00 Albumin/Globulin Ratio 0.8 % 07/22/20 16:00 Procalcitonin 0.07 ng/mL (<0.15) 07/22/20 18:21 Coronavirus (PCR) Positive (Negative) A 07/23/20 10:11 Microbiology: Microbiology 07/22/20 18:21 Peripheral/Venous Blood Culture - Preliminary NO GROWTH AFTER 48 HOURS 07/22/20 18:30 Peripheral/Venous Blood Culture - Preliminary Staphylococcus Aureus [place]/IV: Voiding Method Toilet IV Catheter Type [Right INT / Saline Lock Forearm] IV Catheter Type [Right Hand] INT / Saline Lock Active Medications - Current Medications Current Medications: Generic Name Dose Route Start Last Admin Trade Name Freq PRN Reason Stop Dose Admin Acetaminophen 650 mg 07/22/20 19:12 07/23/20 08:21 Acetaminophen 325 Mg Tab PO 650 mg Q4H PRN Administration Pain MILD(1-3)/Fever >100.5/JEFFERY Albuterol 2.5 mg 07/22/20 19:12 Albuterol 2.5 Mg/3 Ml Nebu IH Q4HRT PRN Shortness Of Breath Enoxaparin Sodium 40 mg 07/23/20 22:00 07/24/20 21:14 Enoxaparin 40 Mg/0.4 Ml Inj SUB-Q 40 mg QDAY@2200 GILDA Administration Protocol Famotidine 10 mg 07/22/20 22:00 07/24/20 21:14 Famotidine 10 Mg Tab PO 10 mg BID GILDA Administration Hydromorphone HCl 0.25 mg 07/22/20 19:12 07/22/20 19:48 Hydromorphone 1 Mg/1 Ml Inj IV 0.25 mg Q4H PRN Administration Pain, Moderate (4-6) Vancomycin HCl 1,500 mg/ 530 mls @ 333.333 mls/hr 07/24/20 03:00 07/25/20 02:01 Sodium Chloride IV 333.333 mls/hr Q12H GILDA Administration REMDESIVIR 100 mg/ Sodium 250 mls @ 500 mls/hr 07/25/20 21:00 Chloride IV 07/28/20 21:29 Q24HR@2100 [facility] Insulin Human Isoph/Insulin Regular 40 unit 07/23/20 18:30 07/24/20 19:00 Insulin Nph/Regular 70/30 Inj SUB-Q 40 unit QPMDIAB GILDA Administration Insulin Human Isoph/Insulin Regular 45 unit 07/24/20 08:00 07/25/20 08:02 Insulin Nph/Regular 70/30 Inj SUB-Q 45 unit QDDIAB GILDA Administration Insulin Human Regular 0 unit 07/22/20 22:00 07/25/20 08:02 Insulin Regular, Human 100 Unit/Ml 3ml Vial SUB-Q 4 unit ACHS GILDA Administration Protocol Methylprednisolone Sodium Succinate 40 mg 07/22/20 22:00 07/25/20 05:12 Methylprednisolone Sod Succinate 40 Mg/1 Ml Inj IV 40 mg Q8HR GILDA Administration Ondansetron HCl 4 mg 07/22/20 19:12 Ondansetron 4 Mg/2 Ml Inj IV Q8H PRN Nausea And Vomiting Pseudoephedrine/Acetam/Chlorphenir 10 ml 07/23/20 21:37 07/24/20 21:13 Guaifenesin/Codeine 100-10mg Oral Liqd 5 Ml PO 10 ml Q4H PRN Administration Cough Sodium Chloride 10 ml 07/22/20 22:00 07/24/20 21:14 Sodium Chloride 0.9% 10 Ml Flush Syringe IV 10 ml BID GILDA Administration Sodium Chloride 10 ml 07/22/20 19:12 Sodium Chloride 0.9% 10 Ml Flush Syringe IV PRN PRN LINE FLUSH Sodium Chloride 50 ml 07/25/20 21:00 Sodium Chloride 0.9% 50 Ml Ivpb IV 07/28/20 21:01 Q24HR@2100 [facility] Nutrition/Malnutrition Assess - Dietary Evaluation Nutrition/Malnutrition Findings: Nutrition Notes Start: 07/23/20 13:57 Freq: Status: Active Protocol: Document 07/23/20 13:57 ELVA (Rec: 07/23/20 14:00 ELVA [id number]) Nutrition Notes 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 Unable to reach pt via phone. Burn Absent Trauma Absent Minimum of two criteria No Is patient on ventilator? No Is Patient Ambulatory and/or Out of Bed Yes REE-([facility]-ambulatory/OOB) [ 2432.469 NUTR.MSJOOB] Kcal/Kg value to use for calculation 16 Approximate Energy Requirements Using 1920 kcal/Kg Calculation Used for Recommendations Kcal/kg Additional Notes Pro needs 0.8-1g/kg adjBW: 76- 95g/day Fluid needs 1ml/kcal Nutrition Intervention Follow-Up By: 07/26/20 Additional Comments F/U: MST assessment, intakes
[2020-07-25] MEDS: FAMOTIDINE 10 MG TAB PO SCH ×2 (09:29→22:29)
--- NOTE | 2020-07-25 15:31 | Progress Note ---
Assessment and Plan Cultures: SARS CoV2 PCR: Positive 07/22/2020 blood culture: 1 bottle with staph aureus A/P: 59-year-old female with hypertension, obesity, diabetes, asthma was admitted to the hospital with symptoms of not feeling well for the past 1 week: #Bilateral pneumonia: Secondary to COVID-19. CTA with patchy pneumonia b/l. #Acute hypoxic respiratory failure: On supplemental oxygen #Staph aureus bacteremia: Follow-up final culture report. #Obesity Recs: -IV/PO Dexamethasone 6 mg daily x 10 days -Continue IV vancomycin for now, follow-up blood cultures for DESHAUN -Ordered repeat blood cultures -Orderd TTE. -IV remdesivir ordered. D2 of 5. -prophylactic anticoagulation based on d-dimer per hospital protocol -trend ferritin, LDH, d-dimer, CRP every 2-3 days for risk stratification and to assess disease progression Travis Francisco MD [facility] ([facility] O: [phone] F: [phone] Subjective Date of service: 07/25/20 Interval history: Afebrile, no acute change at present. Currently on 2 L nasal cannula. Objective - Exam Narrative Exam: Physical exam deferred due to PPE conservation strategy. Please refer to primary team's note. - Constitutional Vitals: Vital Signs Temp Pulse Resp BP Pulse Ox 98.3 F 50 L 17 137/50 96 07/25/20 04:53 07/25/20 04:53 07/25/20 04:53 07/25/20 04:53 07/25/20 08:34 Temperature -Last 24 Hours Temperature 98.3 F Temperature 98.2 F Temperature 98.1 F Temperature 98.0 F - Labs CBC & Chem 7: 07/24/20 04:15 07/24/20 04:15 Labs: Abnormal lab results 07/24/20 07/24/20 07/25/20 Range/Units 15:35 22:04 02:54 POC Glucose 394 H 356 H 259 H (70-105) mg/dL 07/25/20 07/25/20 Range/Units 07:43 11:33 POC Glucose 270 H 275 H (70-105) mg/dL
[2020-07-25 15:46] LABS: Alanine Aminotransferase 20 units/L (7-56); Albumin 3.2 g/dL (3.9-5)
[2020-07-25 15:55] LABS: Bilirubin,Direct < 0.2 mg/dL (0-0.2)
[2020-07-25] MEDS: SODIUM CHLORIDE 0.9% 50 ML IVPB IV SCH (20:44)
[2020-07-25] MEDS: REMDESIVIR 100 MG in SODIUM CHLORIDE 0.9% 250ML 250 ML IV SCH (20:44)
[2020-07-25] MEDS ORDERED: INSULIN REGULAR, HUMAN 100 UNIT/ML 3ML VIAL SUB-Q ONE (22:24)
[2020-07-25] MEDS: ENOXAPARIN 40 MG/0.4 ML INJ SUB-Q SCH (22:29)
[2020-07-26] MEDS: VANCOMYCIN 1,500 MG in SODIUM CHLORIDE 0.9% 500 ML 500 ML IV SCH ×2 (03:32→14:06)
[2020-07-26] MEDS: methylPREDNISolone Sod Succinate 40 MG/1 ML INJ IV SCH ×3 (05:14→22:31)
[2020-07-26 06:48] LABS: Hematocrit 31.4 % (30.3-42.9); Hemoglobin 10.1 gm/dl (10.1-14.3); Mean Corpuscular HGB Conc 32 % (30-34); Mean Corpuscular Volume 79 fl (79-97); Platelet Count 362 K/mm3 (140-440); Red Blood Count 3.96 M/mm3 (3.65-5.03); Red Cell Distribution Width 14.9 % (13.2-15.2)
[2020-07-26 06:50] LABS: Basophils % (Auto) 0.1 % (0.0-1.8); Lymphocytes # (Auto) 1.2 K/mm3 (1.2-5.4); Lymphocytes % (Auto) 9.3 % (13.4-35.0); Monocytes # (Auto) 0.6 K/mm3 (0.0-0.8)
[2020-07-26 07:08] LABS: BUN/Creatinine Ratio 24; Blood Urea Nitrogen 19 mg/dL (7-17); Calcium 8.6 mg/dL (8.4-10.2); Hemolysis Index 0
[2020-07-26 07:27] LABS: C-Reactive Protein 3.8 mg/dL (0.00-1.30)
[2020-07-26] MEDS: INSULIN NPH/REGULAR 70/30 INJ SUB-Q SCH ×2 (08:25→17:22)
[2020-07-26] MEDS: INSULIN REGULAR, HUMAN 100 UNIT/ML 3ML VIAL SUB-Q SCH ×4 (08:25→23:02)
[2020-07-26] MEDS: FAMOTIDINE 10 MG TAB PO SCH ×2 (09:49→22:32)
--- NOTE | 2020-07-26 11:15 | Progress Note ---
Assessment and Plan Assessment and plan: Sepsis Continue IV antibiotics-vancomycin Blood culture x1/4 +ve for Staphylococcus. Repeat blood culture pending Awaiting TTE ID recommendations appreciated Acute hypoxemic respiratory failure Continue oxygen supplementation Needs to have a walk test prior to discharge COVID-19 pneumonia Continue steroids Remdesivir ID recommendations appreciated Trend inflammatory markers Incentive parameter Prone positioning if able Get a walk test Diabetes Continue insulin HTN (hypertension) Monitor blood pressure every shift, continue medical management. Obesity hypoventilation syndrome Supplemental oxygen, pulse oximetry, chest x-ray, balanced diet, increase physical activity at discharge, outpatient pulmonary follow-up for sleep study. Thyroid nodule Thyroid function test within normal limits Needs endocrinology or PCP follow-up at discharge Bradycardia Possibly effect of remdesivir Monitor on telemetry for now. Repeat EKG TSH and free T4 remain within normal limits DVT prophylaxis SCD to bilateral lower extremities while in bed, prophylactic anticoagulation. 07/23/2020. Await COVID-19 testing. D-dimer elevated at 978. Check CTA of chest to rule out PE. Elevated BG likely related to steroids. Start Lantus at bedtime. Continue sliding scale regular insulin and Accu-Cheks. Continue IV antibiotics per ID recommendations. Follow-up procalcitonin levels. 07/24/2020. Covid testing + 07/23/2020. CTA of the chest revealed patchy bilateral pneumonia and an incidental thyroid nodule. No evidence of PE. Procalcitonin level normal. However, blood cultures suggestive of bacteremia but may be a contaminant (1/4 bottles GPC). Await ID and sensitivities continue antibiotics until ID consult evaluation. Evaluate with exercise pulse oximetry. 07/25/2020. Covid testing + 07/23/2020. CTA of the chest revealed patchy bilateral pneumonia and an incidental thyroid nodule. Check TSH, T3, T4. Consider thyroid scan. No evidence of PE. Procalcitonin level normal. However, blood cultures suggestive of bacteremia but may be a contaminant (1/4 bottles GPC). Await ID and sensitivities. Continue antibiotics per ID recommendations. Continue to trend inflammatory markers. Continue dexamethasone and remdesivir. 07/26/2020. Blood culture remains negative so initial blood culture could be as a result of contaminant. Awaiting TTE. Continue dexamethasone and remdesivir. Heart rate is slightly low in the 40s to 50s. Patient is asymptomatic. TSH and free T4 within normal limits. Monitor for now. Placed on telemetry. Check EKG. History Interval history: Has no complaints today. No acute events noted overnight. Heart rate in the 40s to 50s. Placed on telemetry Hospitalist Physical - Physical exam Narrative exam: VITAL SIGNS: Reviewed. GENERAL: Awake HEAD: No signs of head trauma. EYES: Pupils are equal. Extraocular motions intact. MOUTH: Oropharynx is normal. NECK: No adenopathy, no JVD. CHEST: Chest with diminished breath sounds bilaterally. No wheezes, rales, or rhonchi. CARDIAC: normal S1 and S2, without murmurs, gallops, or rubs. ABDOMEN: Soft, non tender and non distended. No rebound or guarding, and no masses palpated. Bowel Sounds normal. MUSCULOSKELETAL: No edema NEUROLOGIC EXAM: Alert and oriented x3. No focal neurologic deficits SKIN: No obvious lesions - Constitutional Vitals: Temp Pulse Resp BP Pulse Ox 98.6 F 46 L 17 158/71 96 07/26/20 05:12 07/26/20 05:12 07/26/20 05:12 07/26/20 05:12 07/26/20 08:26 Results - Labs CBC & Chem 7: 07/26/20 04:27 07/26/20 04:27 Labs: Laboratory Last Values WBC 12.4 K/mm3 (4.5-11.0) H 07/26/20 04:27 RBC 3.96 M/mm3 (3.65-5.03) 07/26/20 04:27 Hgb 10.1 gm/dl (10.1-14.3) 07/26/20 04:27 Hct 31.4 % (30.3-42.9) 07/26/20 04:27 MCV 79 fl (79-97) 07/26/20 04:27 MCH 26 pg (28-32) L 07/26/20 04:27 MCHC 32 % (30-34) 07/26/20 04:27 RDW 14.9 % (13.2-15.2) 07/26/20 04:27 Plt Count 362 K/mm3 (140-440) 07/26/20 04:27 Lymph % (Auto) 9.3 % (13.4-35.0) L 07/26/20 04:27 [place] % (Auto) 5.0 % (0.0-7.3) 07/26/20 04:27 Eos % (Auto) 0.0 % (0.0-4.3) 07/26/20 04:27 Baso % (Auto) 0.1 % (0.0-1.8) 07/26/20 04:27 Lymph # (Auto) 1.2 K/mm3 (1.2-5.4) 07/26/20 04:27 [place] # (Auto) 0.6 K/mm3 (0.0-0.8) 07/26/20 04:27 Eos # (Auto) 0.0 K/mm3 (0.0-0.4) 07/26/20 04:27 Baso # (Auto) 0.0 K/mm3 (0.0-0.1) 07/26/20 04:27 Seg Neutrophils % 85.6 % (40.0-70.0) H 07/26/20 04:27 Seg Neutrophils # 10.3 K/mm3 (1.8-7.7) H 07/26/20 04:27 D-Dimer 1015.95 ng/mlDDU (0-234) H 07/26/20 04:27 Sodium 135 mmol/L (137-145) L 07/26/20 04:27 Potassium 4.1 mmol/L (3.6-5.0) 07/26/20 04:27 Chloride 99.0 mmol/L (98-107) 07/26/20 04:27 Carbon Dioxide 24 mmol/L (22-30) 07/26/20 04:27 Anion Gap 16 mmol/L 07/26/20 04:27 BUN 19 mg/dL (7-17) H 07/26/20 04:27 Creatinine 0.8 mg/dL (0.6-1.2) 07/26/20 04:27 Estimated GFR > 60 ml/min 07/26/20 04:27 BUN/Creatinine Ratio 24 % 07/26/20 04:27 Glucose 260 mg/dL (65-100) H 07/26/20 04:27 POC Glucose 209 mg/dL (70-105) H 07/26/20 07:59 Lactic Acid 1.30 mmol/L (0.7-2.0) 07/23/20 05:43 Calcium 8.6 mg/dL (8.4-10.2) 07/26/20 04:27 Ferritin 330.5 ng/mL (10.0-200.0) H 07/26/20 04:27 Total Bilirubin 0.20 mg/dL (0.1-1.2) 07/25/20 14:55 Direct Bilirubin < 0.2 mg/dL (0-0.2) 07/25/20 14:55 Indirect Bilirubin 0.0 mg/dL 07/25/20 14:55 AST 22 units/L (5-40) 07/25/20 14:55 ALT 20 units/L (7-56) 07/25/20 14:55 Alkaline Phosphatase 78 units/L (35-129) 07/25/20 14:55 Lactate Dehydrogenase 149 units/L (91-180) 07/26/20 04:27 C-Reactive Protein 3.80 mg/dL (0.00-1.30) H 07/26/20 04:27 Total Protein 6.1 g/dL (6.3-8.2) L D 07/25/20 14:55 Albumin 3.2 g/dL (3.9-5) L 07/25/20 14:55 Albumin/Globulin Ratio 1.1 % 07/25/20 14:55 Procalcitonin 0.07 ng/mL (<0.15) 07/22/20 18:21 TSH 0.713 mlU/mL (0.270-4.200) 07/25/20 08:47 Free T4 1.15 ng/dL (0.76-1.46) 07/25/20 08:47 Vancomycin Trough 12.8 ug/mL (5.0-20.0) 07/25/20 14:55 Coronavirus (PCR) Positive (Negative) A 07/23/20 10:11 Microbiology: Microbiology 07/25/20 19:06 Peripheral/Venous Blood Culture - Preliminary Culture in Progress 07/25/20 19:06 Peripheral/Venous Blood Culture - Preliminary Culture in Progress 07/22/20 18:21 Peripheral/Venous Blood Culture - Preliminary NO GROWTH AFTER 72 HOURS [place]/IV: Voiding Method Toilet IV Catheter Type [Right INT / Saline Lock Forearm] IV Catheter Type [Right Hand] INT / Saline Lock Active Medications - Current Medications Current Medications: Generic Name Dose Route Start Last Admin Trade Name Freq PRN Reason Stop Dose Admin Acetaminophen 650 mg 07/22/20 19:12 07/23/20 08:21 Acetaminophen 325 Mg Tab PO 650 mg Q4H PRN Administration Pain MILD(1-3)/Fever >100.5/JEFFERY Albuterol 2.5 mg 07/22/20 19:12 Albuterol 2.5 Mg/3 Ml Nebu IH Q4HRT PRN Shortness Of Breath Enoxaparin Sodium 40 mg 07/23/20 22:00 07/25/20 22:29 Enoxaparin 40 Mg/0.4 Ml Inj SUB-Q 40 mg QDAY@2200 GILDA Administration Protocol Famotidine 10 mg 07/22/20 22:00 07/26/20 09:49 Famotidine 10 Mg Tab PO 10 mg BID GILDA Administration Hydromorphone HCl 0.25 mg 07/22/20 19:12 07/22/20 19:48 Hydromorphone 1 Mg/1 Ml Inj IV 0.25 mg Q4H PRN Administration Pain, Moderate (4-6) Vancomycin HCl 1,500 mg/ 530 mls @ 333.333 mls/hr 07/24/20 03:00 07/26/20 03:32 Sodium Chloride IV 333.333 mls/hr Q12H GILDA Administration REMDESIVIR 100 mg/ Sodium 250 mls @ 500 mls/hr 07/25/20 21:00 07/25/20 20:44 Chloride IV 07/28/20 21:29 500 mls/hr Q24HR@2100 GILDA Administration Insulin Human Isoph/Insulin Regular 40 unit 07/23/20 18:30 07/25/20 17:54 Insulin Nph/Regular 70/30 Inj SUB-Q 40 unit QPMDIAB GILDA Administration Insulin Human Isoph/Insulin Regular 45 unit 07/24/20 08:00 07/26/20 08:25 Insulin Nph/Regular 70/30 Inj SUB-Q 45 unit QDDIAB GILDA Administration Insulin Human Regular 0 unit 07/22/20 22:00 07/26/20 08:25 Insulin Regular, Human 100 Unit/Ml 3ml Vial SUB-Q 3 unit ACHS GILDA Administration Protocol Methylprednisolone Sodium Succinate 40 mg 07/22/20 22:00 07/26/20 05:14 Methylprednisolone Sod Succinate 40 Mg/1 Ml Inj IV 40 mg Q8HR GILDA Administration Ondansetron HCl 4 mg 07/22/20 19:12 Ondansetron 4 Mg/2 Ml Inj IV Q8H PRN Nausea And Vomiting Pseudoephedrine/Acetam/Chlorphenir 10 ml 07/23/20 21:37 07/24/20 21:13 Guaifenesin/Codeine 100-10mg Oral Liqd 5 Ml PO 10 ml Q4H PRN Administration Cough Sodium Chloride 10 ml 07/22/20 22:00 07/26/20 09:50 Sodium Chloride 0.9% 10 Ml Flush Syringe IV 10 ml BID GILDA Administration Sodium Chloride 10 ml 07/22/20 19:12 Sodium Chloride 0.9% 10 Ml Flush Syringe IV PRN PRN LINE FLUSH Sodium Chloride 50 ml 07/25/20 21:00 07/25/20 20:44 Sodium Chloride 0.9% 50 Ml Ivpb IV 07/28/20 21:01 50 ml Q24HR@2100 GILDA Administration Nutrition/Malnutrition Assess - Dietary Evaluation Nutrition/Malnutrition Findings: Nutrition Notes Start: 07/23/20 13:57 Freq: Status: Active Protocol: Document 07/23/20 13:57 ELVA (Rec: 07/23/20 14:00 ELVA [id number]) Nutrition Notes 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 Unable to reach pt via phone. Burn Absent Trauma Absent Minimum of two criteria No Is patient on ventilator? No Is Patient Ambulatory and/or Out of Bed Yes REE-([place]-ambulatory/OOB) [ 2432.469 NUTR.MSJOOB] Kcal/Kg value to use for calculation 16 Approximate Energy Requirements Using 1920 kcal/Kg Calculation Used for Recommendations Kcal/kg Additional Notes Pro needs 0.8-1g/kg adjBW: 76- 95g/day Fluid needs 1ml/kcal Nutrition Intervention Follow-Up By: 07/26/20 Additional Comments F/U: MST assessment, intakes
--- NOTE | 2020-07-26 15:16 | Vascular Lab Report ---
DUPLEX DOPPLER LOWER EXTREMITY VEINS, BILATERAL INDICATION / CLINICAL INFORMATION: Elevated d-dimer. TECHNIQUE: Duplex doppler imaging was performed through the veins of both lower extremities using venous dylon chantel and other maneuvers. COMPARISON: 03/09/2019 FINDINGS: RIGHT COMMON FEMORAL VEIN: Negative. RIGHT FEMORAL VEIN: Negative. RIGHT POPLITEAL VEIN: Negative. RIGHT CALF VEINS: Negative. LEFT COMMON FEMORAL VEIN: Negative. LEFT FEMORAL VEIN: Negative. LEFT POPLITEAL VEIN: Negative. LEFT CALF VEINS: Negative. ADDITIONAL FINDINGS: None. IMPRESSION: 1. No sonographic evidence for DVT in either lower extremity. Signer Name: Ted Velázquez MD Signed: 07/26/2020 3:11 PM Workstation Name: [id number]
--- NOTE | 2020-07-26 16:31 | Progress Note ---
Assessment and Plan Cultures: SARS CoV2 PCR: Positive 07/22/2020 blood culture: 1 bottle with staph aureus 07/25/2020 blood culture: Pending A/P: 59-year-old female with hypertension, obesity, diabetes, asthma was admitted to the hospital with symptoms of not feeling well for the past 1 week: #Bilateral pneumonia: Secondary to COVID-19. CTA with patchy pneumonia b/l. #Acute hypoxic respiratory failure: On supplemental oxygen #Staph aureus bacteremia: Follow-up final culture report. #Obesity Recs: -IV/PO Dexamethasone 6 mg daily x 10 days -Continue IV vancomycin for now, follow-up blood cultures for DESHAUN -Follow-up repeat blood cultures -Orderd TTE. -IV remdesivir ordered. D3 of 5. -prophylactic anticoagulation based on d-dimer per hospital protocol -trend ferritin, LDH, d-dimer, CRP every 2-3 days for risk stratification and to assess disease progression Travis Francisco MD [facility] O: [phone] F: [phone] Subjective Date of service: 07/26/20 Interval history: Afebrile, white count slightly elevated at 12.4. Imaging personally reviewed: Lower extremity Doppler: No DVT Objective - Exam Narrative Exam: Physical exam deferred due to PPE conservation strategy. Please refer to primary team's note. - Constitutional Vitals: Vital Signs Temp Pulse Resp BP Pulse Ox 98.8 F 53 L 18 176/88 96 07/26/20 11:46 07/26/20 11:46 07/26/20 11:46 07/26/20 11:46 07/26/20 11:46 Temperature -Last 24 Hours Temperature 98.8 F Temperature 98.6 F Temperature 98.2 F Temperature 98.2 F - Labs CBC & Chem 7: 07/26/20 04:27 07/26/20 04:27 Labs: Abnormal lab results 07/25/20 07/25/20 07/26/20 Range/Units 16:58 21:05 04:27 WBC 12.4 H (4.5-11.0) K/mm3 MCH 26 L (28-32) pg Lymph % (Auto) 9.3 L (13.4-35.0) % Seg Neutrophils % 85.6 H (40.0-70.0) % Seg Neutrophils # 10.3 H (1.8-7.7) K/mm3 D-Dimer (0-234) ng/mlDDU Sodium (137-145) mmol/L BUN (7-17) mg/dL Glucose (65-100) mg/dL POC Glucose 338 H 411 H (70-105) mg/dL Ferritin (10.0-200.0) ng/mL C-Reactive Protein (0.00-1.30) mg/dL 07/26/20 07/26/20 07/26/20 Range/Units 04:27 04:27 04:27 WBC (4.5-11.0) K/mm3 MCH (28-32) pg Lymph % (Auto) (13.4-35.0) % Seg Neutrophils % (40.0-70.0) % Seg Neutrophils # (1.8-7.7) K/mm3 D-Dimer 1015.95 H (0-234) ng/mlDDU Sodium 135 L (137-145) mmol/L BUN 19 H (7-17) mg/dL Glucose 260 H (65-100) mg/dL POC Glucose (70-105) mg/dL Ferritin 330.5 H (10.0-200.0) ng/mL C-Reactive Protein (0.00-1.30) mg/dL 07/26/20 07/26/20 07/26/20 Range/Units 04:27 07:59 11:43 WBC (4.5-11.0) K/mm3 MCH (28-32) pg Lymph % (Auto) (13.4-35.0) % Seg Neutrophils % (40.0-70.0) % Seg Neutrophils # (1.8-7.7) K/mm3 D-Dimer (0-234) ng/mlDDU Sodium (137-145) mmol/L BUN (7-17) mg/dL Glucose (65-100) mg/dL POC Glucose 209 H 260 H (70-105) mg/dL Ferritin (10.0-200.0) ng/mL C-Reactive Protein 3.80 H (0.00-1.30) mg/dL
[2020-07-26] MEDS: ENOXAPARIN 40 MG/0.4 ML INJ SUB-Q SCH (22:32)
[2020-07-26] MEDS: REMDESIVIR 100 MG in SODIUM CHLORIDE 0.9% 250ML 250 ML IV SCH (22:37)
[2020-07-26] MEDS: SODIUM CHLORIDE 0.9% 50 ML IVPB IV SCH (22:37)
[2020-07-27] MEDS: VANCOMYCIN 1,500 MG in SODIUM CHLORIDE 0.9% 500 ML 500 ML IV SCH ×2 (03:17→15:59)
[2020-07-27 07:45] LABS: Alanine Aminotransferase 25 units/L (7-56); Albumin 3.2 g/dL (3.9-5)
[2020-07-27 07:47] LABS: Bilirubin,Direct < 0.2 mg/dL (0-0.2)
[2020-07-27] MEDS: INSULIN REGULAR, HUMAN 100 UNIT/ML 3ML VIAL SUB-Q SCH ×4 (08:43→23:03)
[2020-07-27] MEDS: INSULIN NPH/REGULAR 70/30 INJ SUB-Q SCH ×2 (08:44→17:59)
--- NOTE | 2020-07-27 10:56 | Progress Note ---
Assessment and Plan Assessment and plan: Sepsis Continue IV antibiotics-vancomycin Blood culture x1/4 +ve for Staphylococcus. Repeat blood culture NTD Awaiting TTE ID recommendations appreciated Acute hypoxemic respiratory failure Continue oxygen supplementation Needs to have a walk test prior to discharge COVID-19 pneumonia Continue steroids Remdesivir ID recommendations appreciated Trend inflammatory markers Incentive parameter Prone positioning if able Diabetes Continue insulin HTN (hypertension) Monitor blood pressure every shift, continue medical management. Obesity hypoventilation syndrome Supplemental oxygen, pulse oximetry, chest x-ray, balanced diet, increase physical activity at discharge, outpatient pulmonary follow-up for sleep study. Thyroid nodule Thyroid function test within normal limits Needs endocrinology or PCP follow-up at discharge Bradycardia HR has been slowly dropping since admission. Currently dropped to 45. EKG shows sinus bradycardia with IVCD. Will get cardiology opinion about this Monitor on telemetry for now. TSH and free T4 remain within normal limits DVT prophylaxis SCD to bilateral lower extremities while in bed, prophylactic anticoagulation. 07/23/2020. Await COVID-19 testing. D-dimer elevated at 978. Check CTA of chest to rule out PE. Elevated BG likely related to steroids. Start Lantus at bedtime. Continue sliding scale regular insulin and Accu-Cheks. Continue IV antibiotics per ID recommendations. Follow-up procalcitonin levels. 07/24/2020. Covid testing + 07/23/2020. CTA of the chest revealed patchy bilateral pneumonia and an incidental thyroid nodule. No evidence of PE. Procalcitonin level normal. However, blood cultures suggestive of bacteremia but may be a contaminant (1/4 bottles GPC). Await ID and sensitivities continue antibiotics until ID consult evaluation. Evaluate with exercise pulse oximetry. 07/25/2020. Covid testing + 07/23/2020. CTA of the chest revealed patchy bilateral pneumonia and an incidental thyroid nodule. Check TSH, T3, T4. Consider thyroid scan. No evidence of PE. Procalcitonin level normal. However, blood cultures suggestive of bacteremia but may be a contaminant (1/4 bottles GPC). Await ID and sensitivities. Continue antibiotics per ID recommendations. Continue to trend inflammatory markers. Continue dexamethasone and remdesivir. 07/26/2020. Blood culture remains negative so initial blood culture could be as a result of contaminant. Awaiting TTE. Continue dexamethasone and remdesivir. Heart rate is slightly low in the 40s to 50s. Patient is asymptomatic. TSH and free T4 within normal limits. Monitor for now. Placed on telemetry. Check EKG. 07/27/2020. BC remains NTD. Awaiting TTE. On dexamethasone and remdesivir. HR in the 40-50's. She is asymptomatic. Will continue to monitor. History Interval history: Has no complaints today. No acute events noted overnight. Hospitalist Physical - Physical exam Narrative exam: VITAL SIGNS: Reviewed. GENERAL: Awake HEAD: No signs of head trauma. EYES: Pupils are equal. Extraocular motions intact. MOUTH: Oropharynx is normal. NECK: No adenopathy, no JVD. CHEST: Chest with diminished breath sounds bilaterally. No wheezes, rales, or rhonchi. CARDIAC: normal S1 and S2, without murmurs, gallops, or rubs. ABDOMEN: Soft, non tender and non distended. No rebound or guarding, and no masses palpated. Bowel Sounds normal. MUSCULOSKELETAL: No edema NEUROLOGIC EXAM: Alert and oriented x3. No focal neurologic deficits SKIN: No obvious lesions - Constitutional Vitals: Temp Pulse Resp BP Pulse Ox 97.6 F 49 L 18 165/72 98 07/27/20 04:57 07/27/20 04:57 07/27/20 08:28 07/27/20 04:57 07/27/20 08:28 Results - Labs CBC & Chem 7: 07/26/20 04:27 07/26/20 04:27 Labs: Laboratory Last Values WBC 12.4 K/mm3 (4.5-11.0) H 07/26/20 04:27 RBC 3.96 M/mm3 (3.65-5.03) 07/26/20 04:27 Hgb 10.1 gm/dl (10.1-14.3) 07/26/20 04:27 Hct 31.4 % (30.3-42.9) 07/26/20 04:27 MCV 79 fl (79-97) 07/26/20 04:27 MCH 26 pg (28-32) L 07/26/20 04:27 MCHC 32 % (30-34) 07/26/20 04:27 RDW 14.9 % (13.2-15.2) 07/26/20 04:27 Plt Count 362 K/mm3 (140-440) 07/26/20 04:27 Lymph % (Auto) 9.3 % (13.4-35.0) L 07/26/20 04:27 [place] % (Auto) 5.0 % (0.0-7.3) 07/26/20 04:27 Eos % (Auto) 0.0 % (0.0-4.3) 07/26/20 04:27 Baso % (Auto) 0.1 % (0.0-1.8) 07/26/20 04:27 Lymph # (Auto) 1.2 K/mm3 (1.2-5.4) 07/26/20 04:27 [place] # (Auto) 0.6 K/mm3 (0.0-0.8) 07/26/20 04:27 Eos # (Auto) 0.0 K/mm3 (0.0-0.4) 07/26/20 04:27 Baso # (Auto) 0.0 K/mm3 (0.0-0.1) 07/26/20 04:27 Seg Neutrophils % 85.6 % (40.0-70.0) H 07/26/20 04:27 Seg Neutrophils # 10.3 K/mm3 (1.8-7.7) H 07/26/20 04:27 D-Dimer 1015.95 ng/mlDDU (0-234) H 07/26/20 04:27 Sodium 135 mmol/L (137-145) L 07/26/20 04:27 Potassium 4.1 mmol/L (3.6-5.0) 07/26/20 04:27 Chloride 99.0 mmol/L (98-107) 07/26/20 04:27 Carbon Dioxide 24 mmol/L (22-30) 07/26/20 04:27 Anion Gap 16 mmol/L 07/26/20 04:27 BUN 19 mg/dL (7-17) H 07/26/20 04:27 Creatinine 0.8 mg/dL (0.6-1.2) 07/26/20 04:27 Estimated GFR > 60 ml/min 07/26/20 04:27 BUN/Creatinine Ratio 24 % 07/26/20 04:27 Glucose 260 mg/dL (65-100) H 07/26/20 04:27 POC Glucose 257 mg/dL (70-105) H 07/27/20 07:42 Lactic Acid 1.30 mmol/L (0.7-2.0) 07/23/20 05:43 Calcium 8.6 mg/dL (8.4-10.2) 07/26/20 04:27 Ferritin 330.5 ng/mL (10.0-200.0) H 07/26/20 04:27 Total Bilirubin 0.20 mg/dL (0.1-1.2) 07/27/20 05:45 Direct Bilirubin < 0.2 mg/dL (0-0.2) 07/27/20 05:45 Indirect Bilirubin 0.0 mg/dL 07/27/20 05:45 AST 11 units/L (5-40) 07/27/20 05:45 ALT 25 units/L (7-56) 07/27/20 05:45 Alkaline Phosphatase 69 units/L (35-129) 07/27/20 05:45 Lactate Dehydrogenase 149 units/L (91-180) 07/26/20 04:27 C-Reactive Protein 3.80 mg/dL (0.00-1.30) H 07/26/20 04:27 Total Protein 5.8 g/dL (6.3-8.2) L 07/27/20 05:45 Albumin 3.2 g/dL (3.9-5) L 07/27/20 05:45 Albumin/Globulin Ratio 1.2 % 07/27/20 05:45 Procalcitonin 0.07 ng/mL (<0.15) 07/22/20 18:21 TSH 0.713 mlU/mL (0.270-4.200) 07/25/20 08:47 Free T4 1.15 ng/dL (0.76-1.46) 07/25/20 08:47 Vancomycin Trough 12.8 ug/mL (5.0-20.0) 07/25/20 14:55 Coronavirus (PCR) Positive (Negative) A 07/23/20 10:11 Microbiology: Microbiology 07/25/20 19:06 Peripheral/Venous Blood Culture - Preliminary NO GROWTH AFTER 24 HOURS 07/25/20 19:06 Peripheral/Venous Blood Culture - Preliminary NO GROWTH AFTER 24 HOURS 07/22/20 18:21 Peripheral/Venous Blood Culture - Preliminary NO GROWTH AFTER 4 DAYS [place]/IV: Voiding Method Toilet IV Catheter Type [Right INT / Saline Lock Forearm] IV Catheter Type [Right Hand] INT / Saline Lock Active Medications - Current Medications Current Medications: Generic Name Dose Route Start Last Admin Trade Name Freq PRN Reason Stop Dose Admin Acetaminophen 650 mg 07/22/20 19:12 07/23/20 08:21 Acetaminophen 325 Mg Tab PO 650 mg Q4H PRN Administration Pain MILD(1-3)/Fever >100.5/JEFFERY Albuterol 2.5 mg 07/22/20 19:12 Albuterol 2.5 Mg/3 Ml Nebu IH Q4HRT PRN Shortness Of Breath Enoxaparin Sodium 40 mg 07/23/20 22:00 07/26/20 22:32 Enoxaparin 40 Mg/0.4 Ml Inj SUB-Q 40 mg QDAY@2200 [facility] Administration Protocol Famotidine 10 mg 07/22/20 22:00 07/26/20 22:32 Famotidine 10 Mg Tab PO 10 mg BID GILDA Administration Hydromorphone HCl 0.25 mg 07/22/20 19:12 07/22/20 19:48 Hydromorphone 1 Mg/1 Ml Inj IV 0.25 mg Q4H PRN Administration Pain, Moderate (4-6) Vancomycin HCl 1,500 mg/ 530 mls @ 333.333 mls/hr 07/24/20 03:00 07/27/20 03:17 Sodium Chloride IV 333.333 mls/hr Q12H GILDA Administration REMDESIVIR 100 mg/ Sodium 250 mls @ 500 mls/hr 07/25/20 21:00 07/27/20 01:11 Chloride IV 07/28/20 21:29 Infused Q24HR@2100 GILDA Infusion Insulin Human Isoph/Insulin Regular 40 unit 07/23/20 18:30 07/26/20 17:22 Insulin Nph/Regular 70/30 Inj SUB-Q 40 unit QPMDIAB GILDA Administration Insulin Human Isoph/Insulin Regular 45 unit 07/24/20 08:00 07/27/20 08:44 Insulin Nph/Regular 70/30 Inj SUB-Q 45 unit QDDIAB GILDA Administration Insulin Human Regular 0 unit 07/22/20 22:00 07/27/20 08:43 Insulin Regular, Human 100 Unit/Ml 3ml Vial SUB-Q 4 unit ACHS GILDA Administration Protocol Methylprednisolone Sodium Succinate 40 mg 07/22/20 22:00 07/26/20 22:31 Methylprednisolone Sod Succinate 40 Mg/1 Ml Inj IV 40 mg Q8HR GILDA Administration Ondansetron HCl 4 mg 07/22/20 19:12 Ondansetron 4 Mg/2 Ml Inj IV Q8H PRN Nausea And Vomiting Pseudoephedrine/Acetam/Chlorphenir 10 ml 07/23/20 21:37 07/24/20 21:13 Guaifenesin/Codeine 100-10mg Oral Liqd 5 Ml PO 10 ml Q4H PRN Administration Cough Sodium Chloride 10 ml 07/22/20 22:00 07/26/20 22:32 Sodium Chloride 0.9% 10 Ml Flush Syringe IV 10 ml BID GILDA Administration Sodium Chloride 10 ml 07/22/20 19:12 Sodium Chloride 0.9% 10 Ml Flush Syringe IV PRN PRN LINE FLUSH Sodium Chloride 50 ml 07/25/20 21:00 07/26/20 22:37 Sodium Chloride 0.9% 50 Ml Ivpb IV 07/28/20 21:01 50 ml Q24HR@2100 GILDA Administration Nutrition/Malnutrition Assess - Dietary Evaluation Nutrition/Malnutrition Findings: Nutrition Notes Start: 07/23/20 13:57 Freq: Status: Active Protocol: Document 07/26/20 13:57 AB (Rec: 07/26/20 14:17 AB [id number]) Co-Sign 07/26/20 13:57 Nutrition Notes Initial or Follow up Assessment Current Diagnosis Diabetes,Sepsis,Hypertension, Hyperlipidemia Other Pertinent Diagnosis Bilat pneu Current Diet Cardiac/Consistent Carb Labs/Tests Na 135 BUN 19 BG 260 Pertinent Medications Solu-medrol Vancomyocin Height 5 ft 11 in Weight 122.1 kg [place] Body Weight (kg) 70.45 BMI 37.5 Weight Status Obese Subjective/Other Information F/U for MST assessment and intakes. Per chart, pt consuming 100% of meals. Unable to reach pt 2x or nurse 2x. Percent of energy/protein needs met: 100%/100% Burn Absent Trauma Absent Food Allergy No Current % PO Good (75-100%) Minimum of two criteria No Is patient on ventilator? No Is Patient Ambulatory and/or Out of Bed Yes REE-([facility]-ambulatory/OOB) [ 4619.769 [id number]] Kcal/Kg value to use for calculation 16 Approximate Energy Requirements Using 1953 kcal/Kg Calculation Used for Recommendations Kcal/kg Additional Notes Pro needs 0.8-1g/kg adjBW: 76- 95g/day Fluid needs 1ml/kcal Nutrition Intervention Change Diet Order: Continue current order Follow-Up By: 07/28/20 Additional Comments F/U for full MST assessment
--- NOTE | 2020-07-27 11:48 | Consultation ---
History of Present Illness Consult date: 07/27/20 Consult reason: bradycardia History of present illness: This is a 59yr old F whom is admitted with COVID 19 viral pneumonia and sepsis. On telemetry, patient noted with marked sinus bradycardia, rate ranging mid 40s to 50s. Cardiology consultation has been requested. There are no pauses seen and the patient has remains asymptomatic. Patient denies dizziness and light headedness. TSH is normal at 0.71. Her presenting ECG is normal sinus rhythm, rate 92. Patient denies prior cardiac history. Her latest cardiac workup was a negative stress test done in 2017. Co-morbidities includes HTN, HLD, DM, Migraine Headaches, and Obesity. Past History Past Medical History: diabetes, GERD, hypertension, hyperlipidemia, other (See HPI) Past Surgical History: Other (Tubal ligation, throat polyps) Social history: single. denies: smoking, alcohol abuse, prescription drug abuse Family history: diabetes, hypertension Medications and Allergies Allergies Allergy/AdvReac Type Severity Reaction Status Date / Time No Known Allergies Allergy Verified 05/05/15 11:11 Home Medications Medication Instructions Recorded Confirmed Last Taken Type Insulin NPH/Regular [NovoLIN 70/30] 35 unit SQ QHS 03/28/17 07/22/20 03/04/19 09:00 History metFORMIN [Glucophage] 1,000 mg PO BID 03/28/17 07/22/20 03/04/19 09:00 History Albuterol Sulfate [Proventil Hfa] 2 puff IH PRN PRN 02/24/19 07/22/20 Unknown History AtorvaSTATin [Lipitor] 20 mg PO QHS 02/24/19 07/22/20 03/04/19 21:00 History Ibuprofen [Motrin 600 MG tab] 800 mg PO PRN PRN 02/24/19 07/22/20 03/04/19 16:30 History Insulin NPH Hum/Reg Insulin Hm 40 unit SQ QAM 02/24/19 07/22/20 03/04/19 09:00 History [Relion Novolin 70-30 Vial] glipiZIDE [Glucotrol] 10 mg PO BID 02/24/19 07/22/20 03/04/19 18:00 History hydroCHLOROthiazide [HCTZ] 25 mg PO QDAY 02/24/19 07/22/20 03/04/19 09:00 History Oxycodone HCl/Acetaminophen 1 each PO Q6HR PRN #30 tablet 03/09/19 07/22/20 Unknown Rx [Percocet 7.5/325 mg] Active Meds: Active Medications Acetaminophen (Acetaminophen 325 Mg Tab) 650 mg PO Q4H PRN PRN Reason: Pain MILD(1-3)/Fever >100.5/JEFFERY Last Admin: 07/23/20 08:21 Dose: 650 mg Documented by: Albuterol (Albuterol 2.5 Mg/3 Ml Nebu) 2.5 mg IH Q4HRT PRN PRN Reason: Shortness Of Breath Enoxaparin Sodium (Enoxaparin 40 Mg/0.4 Ml Inj) 40 mg SUB-Q QDAY@2200 [facility]; Protocol Last Admin: 07/26/20 22:32 Dose: 40 mg Documented by: Famotidine (Famotidine 10 Mg Tab) 10 mg PO BID [facility] Last Admin: 07/26/20 22:32 Dose: 10 mg Documented by: Hydromorphone HCl (Hydromorphone 1 Mg/1 Ml Inj) 0.25 mg IV Q4H PRN PRN Reason: Pain, Moderate (4-6) Last Admin: 07/22/20 19:48 Dose: 0.25 mg Documented by: Vancomycin HCl 1,500 mg/ (Sodium Chloride) 530 mls @ 333.333 mls/hr IV Q12H [facility] Last Admin: 07/27/20 03:17 Dose: 333.333 mls/hr Documented by: REMDESIVIR 100 mg/ Sodium (Chloride) 250 mls @ 500 mls/hr IV Q24HR@2100 [facility] Stop: 07/28/20 21:29 Last Infusion: 07/27/20 01:11 Dose: Infused Documented by: Insulin Human Isoph/Insulin Regular (Insulin Nph/Regular 70/30 Inj) 40 unit SUB-Q QPMDIAB [facility] Last Admin: 07/26/20 17:22 Dose: 40 unit Documented by: Insulin Human Isoph/Insulin Regular (Insulin Nph/Regular 70/30 Inj) 45 unit SUB-Q QDDIAB [facility] Last Admin: 07/27/20 08:44 Dose: 45 unit Documented by: Insulin Human Regular (Insulin Regular, Human 100 Unit/Ml 3ml Vial) 0 unit SUB- Q ACHS [facility]; Protocol Last Admin: 07/27/20 08:43 Dose: 4 unit Documented by: Methylprednisolone Sodium Succinate (Methylprednisolone Sod Succinate 40 Mg/1 Ml Inj) 40 mg IV Q8HR [facility] Last Admin: 07/26/20 22:31 Dose: 40 mg Documented by: Ondansetron HCl (Ondansetron 4 Mg/2 Ml Inj) 4 mg IV Q8H PRN PRN Reason: Nausea And Vomiting Pseudoephedrine/Acetam/Chlorphenir (Guaifenesin/Codeine 100-10mg Oral Liqd 5 Ml) 10 ml PO Q4H PRN PRN Reason: Cough Last Admin: 07/24/20 21:13 Dose: 10 ml Documented by: Sodium Chloride (Sodium Chloride 0.9% 10 Ml Flush Syringe) 10 ml IV BID [facility] Last Admin: 07/26/20 22:32 Dose: 10 ml Documented by: Sodium Chloride (Sodium Chloride 0.9% 10 Ml Flush Syringe) 10 ml IV PRN PRN PRN Reason: LINE FLUSH Sodium Chloride (Sodium Chloride 0.9% 50 Ml Ivpb) 50 ml IV Q24HR@2100 [facility] Stop: 07/28/20 21:01 Last Admin: 07/26/20 22:37 Dose: 50 ml Documented by: Physical Examination Vital Signs Temp Pulse Resp BP Pulse Ox 102.5 F H 114 H 22 145/73 92 07/22/20 15:48 07/22/20 15:48 07/22/20 15:48 07/22/20 15:48 07/22/20 15:48 Narrative exam: Deferred due to isolation protocol. General appearance: no acute distress Cardiac: Positive: Bradycardia Results 07/26/20 04:27 07/26/20 04:27 Cardiac Enzymes 07/27/20 Range/Units 05:45 AST 11 (5-40) units/L Comprehensive Metabolic Panel 07/27/20 Range/Units 05:45 Direct Bilirubin < 0.2 (0-0.2) mg/dL Indirect Bilirubin 0.0 mg/dL AST 11 (5-40) units/L ALT 25 (7-56) units/L Alkaline Phosphatase 69 (35-129) units/L Total Protein 5.8 L (6.3-8.2) g/dL Albumin 3.2 L (3.9-5) g/dL Assessment and Plan Sinus bradycardia pt remains asymptomatic TSH is normal at 0.71. COVID 19 viral pneumonia Sepsis HTN Diabetes Obesity
--- NOTE | 2020-07-27 13:26 | Progress Note ---
Assessment and Plan Cultures: SARS CoV2 PCR: Positive 07/22/2020 blood culture: 1 bottle with staph aureus 07/25/2020 blood culture: Pending A/P: 59-year-old female with hypertension, obesity, diabetes, asthma was admitted to the hospital with symptoms of not feeling well for the past 1 week: #Bilateral pneumonia: Secondary to COVID-19. CTA with patchy pneumonia b/l. #Acute hypoxic respiratory failure: On supplemental oxygen #Staph aureus bacteremia: Follow-up final culture report. #Obesity Recs: -IV/PO Dexamethasone 6 mg daily x 10 days -Continue IV vancomycin for now, follow-up blood cultures for DESHAUN -Follow-up repeat blood cultures -Orderd TTE. -IV remdesivir ordered. D4 of 5. -prophylactic anticoagulation based on d-dimer per hospital protocol -trend ferritin, LDH, d-dimer, CRP every 2-3 days for risk stratification and to assess disease progression Travis Francisco MD [facility] ([facility] O: [phone] F: [phone] Subjective Date of service: 07/27/20 Interval history: Afebrile, no acute changes. Awaiting echo. 1 L nasal cannula. Objective - Exam Narrative Exam: Physical exam deferred due to PPE conservation strategy. Please refer to primary team's note. - Constitutional Vitals: Vital Signs Temp Pulse Resp BP Pulse Ox 97.6 F 49 L 18 165/72 98 07/27/20 04:57 07/27/20 04:57 07/27/20 08:28 07/27/20 04:57 07/27/20 08:28 Temperature -Last 24 Hours Temperature 97.6 F Temperature 97.7 F - Labs CBC & Chem 7: 07/26/20 04:27 07/26/20 04:27 Labs: Abnormal lab results 07/26/20 07/26/20 07/27/20 Range/Units 16:40 22:14 05:45 POC Glucose 265 H 297 H (70-105) mg/dL Total Protein 5.8 L (6.3-8.2) g/dL Albumin 3.2 L (3.9-5) g/dL 07/27/20 07/27/20 Range/Units 07:42 11:45 POC Glucose 257 H 272 H (70-105) mg/dL Total Protein (6.3-8.2) g/dL Albumin (3.9-5) g/dL
[2020-07-27] MEDS: FAMOTIDINE 10 MG TAB PO SCH ×2 (13:59→22:11)
[2020-07-27] MEDS: methylPREDNISolone Sod Succinate 40 MG/1 ML INJ IV SCH ×2 (13:59→21:01)
[2020-07-27] MEDS: REMDESIVIR 100 MG in SODIUM CHLORIDE 0.9% 250ML 250 ML IV SCH (21:00)
[2020-07-27] MEDS: ENOXAPARIN 40 MG/0.4 ML INJ SUB-Q SCH (21:01)
[2020-07-27] MEDS: SODIUM CHLORIDE 0.9% 50 ML IVPB IV SCH (22:11)
[2020-07-27] MEDS ORDERED: hydroCHLOROthiazide 25 MG TAB PO ONE (22:44)
[2020-07-28] MEDS: VANCOMYCIN 1,500 MG in SODIUM CHLORIDE 0.9% 500 ML 500 ML IV SCH ×2 (04:28→15:20)
[2020-07-28] MEDS ORDERED: hydrALAZINE 20 MG/1 ML INJ IV PRN (05:48)
[2020-07-28] MEDS: methylPREDNISolone Sod Succinate 40 MG/1 ML INJ IV SCH ×2 (06:20→08:28)
[2020-07-28] MEDS: INSULIN REGULAR, HUMAN 100 UNIT/ML 3ML VIAL SUB-Q SCH ×4 (08:31→22:40)
[2020-07-28] MEDS: INSULIN NPH/REGULAR 70/30 INJ SUB-Q SCH ×2 (08:53→17:35)
--- NOTE | 2020-07-28 09:14 | Progress Note ---
Assessment and Plan Sinus bradycardia, transient pt remains asymptomatic TSH is normal at 0.71. COVID 19 viral pneumonia Staph aureus bacteremia HTN Diabetes Obesity Echocardiogram has been done for rule out endocarditis, the results are pending. Continue telemetry monitoring. Subjective Date of service: 07/28/20 Interval history: Patient appears comfortable. No cardiac events reported. Currently, she is sinus rhythm, rate 100 on telemetry monitoring. Objective Vital Signs Temp Pulse Resp BP BP Pulse Ox 07/28/20 08:29 97 07/28/20 05:44 98.7 F 47 L 20 173/75 98 07/28/20 01:01 52 L 18 154/69 97 07/27/20 22:16 97 07/27/20 22:10 53 L 18 177/89 96 07/27/20 21:34 97.7 F 57 L 20 177/90 95 07/27/20 16:23 98.7 F 72 18 157/87 94 07/27/20 11:12 51 L 18 167/76 97 - Physical Examination Narrative exam: Deferred due to isolation protocol. General: No Apparent Distress Cardiac: Positive: Reg Rate and Rhythm - Labs and Meds Comprehensive Metabolic Panel 07/27/20 Range/Units 18:51 Glucose 475 H (65-100) mg/dL
[2020-07-28] MEDS: FAMOTIDINE 10 MG TAB PO SCH ×2 (09:19→22:26)
[2020-07-28] MEDS: hydroCHLOROthiazide 25 MG TAB PO SCH (09:19)
[2020-07-28] MEDS: DEXAMETHASONE 4 MG TAB PO SCH (12:43)
--- NOTE | 2020-07-28 13:23 | Progress Note ---
Assessment and Plan Cultures: SARS CoV2 PCR: Positive 07/22/2020 blood culture: 1 bottle with staph aureus 07/25/2020 blood culture: Pending A/P: 59-year-old female with hypertension, obesity, diabetes, asthma was admitted to the hospital with symptoms of not feeling well for the past 1 week: #Bilateral pneumonia: Secondary to COVID-19. CTA with patchy pneumonia b/l. #Acute hypoxic respiratory failure: On supplemental oxygen #Staph aureus bacteremia: Follow-up final culture report. #Obesity Recs: -IV/PO Dexamethasone 6 mg daily x 10 days -Continue IV vancomycin for now, follow-up blood cultures for DESHAUN -Follow-up repeat blood cultures. Negative x48h now. -IV remdesivir ordered. D5 of 5. 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 -case management consulted for vancomycin 1500mg q12h until 08/22/2020. Un fortunately due to her co-morbidities she is not a candidate for a shorter course -OK for DC when pICC and home antibiotics in place. -May need to change Abx as an outpatient. Travis Francisco MD [facility] ([facility] O: [phone] F: [phone] Subjective Date of service: 07/28/20 Interval history: Afebrile, patient doing better. No acute changes at the present time. Currently on room air. Imaging personally reviewed: TTE: No vegetations. Objective - Exam Narrative Exam: Physical exam deferred due to PPE conservation strategy. Please refer to primary team's note. - Constitutional Vitals: Vital Signs Temp Pulse Resp BP Pulse Ox 98.7 F 47 L 20 173/75 97 07/28/20 05:44 07/28/20 05:44 07/28/20 05:44 07/28/20 05:44 07/28/20 08:29 Temperature -Last 24 Hours Temperature 98.7 F Temperature 97.7 F Temperature 98.7 F - Labs CBC & Chem 7: 07/26/20 04:27 07/27/20 18:51 Labs: Abnormal lab results 07/27/20 07/27/20 07/27/20 Range/Units 16:56 18:51 21:32 Glucose 475 H (65-100) mg/dL POC Glucose 531 H 363 H (70-105) mg/dL 07/28/20 07/28/20 Range/Units 07:29 11:43 Glucose (65-100) mg/dL POC Glucose 189 H 283 H (70-105) mg/dL
--- NOTE | 2020-07-28 13:57 | Progress Note ---
Assessment and Plan Assessment and plan: Sepsis Continue IV antibiotics-vancomycin Blood culture x1/4 +ve for Staphylococcus. Repeat blood culture NTD TTE negative for endocarditis. ID recommendations appreciated Plan for IV antibiotics. PICC line ordered. CM to arrange home antibiotics Acute hypoxemic respiratory failure Resolved Continue oxygen supplementation Remains above 95% on RA COVID-19 pneumonia Continue steroids Complete remdesivir ID recommendations appreciated Trend inflammatory markers Incentive parameter Prone positioning if able Diabetes Continue insulin HTN (hypertension) Monitor blood pressure every shift, continue medical management. Obesity hypoventilation syndrome Supplemental oxygen, pulse oximetry, chest x-ray, balanced diet, increase physical activity at discharge, outpatient pulmonary follow-up for sleep study. Thyroid nodule Thyroid function test within normal limits Needs endocrinology or PCP follow-up at discharge Bradycardia EKG shows sinus bradycardia with IVCD. Likely as a result of remdesivir Monitor on telemetry for now. TSH and free T4 remain within normal limits DVT prophylaxis SCD to bilateral lower extremities while in bed, prophylactic anticoagulation. 07/23/2020. Await COVID-19 testing. D-dimer elevated at 978. Check CTA of chest to rule out PE. Elevated BG likely related to steroids. Start Lantus at bedtime. Continue sliding scale regular insulin and Accu-Cheks. Continue IV antibiotics per ID recommendations. Follow-up procalcitonin levels. 07/24/2020. Covid testing + 07/23/2020. CTA of the chest revealed patchy bilateral pneumonia and an incidental thyroid nodule. No evidence of PE. Procalcitonin level normal. However, blood cultures suggestive of bacteremia but may be a contaminant (1/4 bottles GPC). Await ID and sensitivities continue antibiotics until ID consult evaluation. Evaluate with exercise pulse oximetry. 07/25/2020. Covid testing + 07/23/2020. CTA of the chest revealed patchy bilateral pneumonia and an incidental thyroid nodule. Check TSH, T3, T4. Consider thyroid scan. No evidence of PE. Procalcitonin level normal. However, blood cultures suggestive of bacteremia but may be a contaminant (1/4 bottles GPC). Await ID and sensitivities. Continue antibiotics per ID recommendations. Continue to trend inflammatory markers. Continue dexamethasone and remdesivir. 07/26/2020. Blood culture remains negative so initial blood culture could be as a result of contaminant. Awaiting TTE. Continue dexamethasone and remdesivir. Heart rate is slightly low in the 40s to 50s. Patient is asymptomatic. TSH and free T4 within normal limits. Monitor for now. Placed on telemetry. Check EKG. 07/27/2020. BC remains NTD. Awaiting TTE. On dexamethasone and remdesivir. HR in the 40-50's. She is asymptomatic. Will continue to monitor. 07/28. TTE - negative. BC NTD. Plan for home IV antibiotics. CM to arrange. Needs a PICC line History Interval history: Has no complaints today. No acute events noted overnight. Hospitalist Physical - Physical exam Narrative exam: VITAL SIGNS: Reviewed. GENERAL: Awake HEAD: No signs of head trauma. EYES: Pupils are equal. Extraocular motions intact. MOUTH: Oropharynx is normal. NECK: No adenopathy, no JVD. CHEST: Chest with diminished breath sounds bilaterally. No wheezes, rales, or rhonchi. CARDIAC: normal S1 and S2, without murmurs, gallops, or rubs. ABDOMEN: Soft, non tender and non distended. No rebound or guarding, and no masses palpated. Bowel Sounds normal. MUSCULOSKELETAL: No edema NEUROLOGIC EXAM: Alert and oriented x3. No focal neurologic deficits SKIN: No obvious lesions - Constitutional Vitals: Temp Pulse Resp BP Pulse Ox 98.7 F 47 L 20 173/75 97 07/28/20 05:44 07/28/20 05:44 07/28/20 05:44 07/28/20 05:44 07/28/20 08:29 Results - Labs CBC & Chem 7: 07/26/20 04:27 07/27/20 18:51 Labs: Laboratory Last Values WBC 12.4 K/mm3 (4.5-11.0) H 07/26/20 04:27 RBC 3.96 M/mm3 (3.65-5.03) 07/26/20 04:27 Hgb 10.1 gm/dl (10.1-14.3) 07/26/20 04:27 Hct 31.4 % (30.3-42.9) 07/26/20 04:27 MCV 79 fl (79-97) 07/26/20 04:27 MCH 26 pg (28-32) L 07/26/20 04:27 MCHC 32 % (30-34) 07/26/20 04:27 RDW 14.9 % (13.2-15.2) 07/26/20 04:27 Plt Count 362 K/mm3 (140-440) 07/26/20 04:27 Lymph % (Auto) 9.3 % (13.4-35.0) L 07/26/20 04:27 Ness % (Auto) 5.0 % (0.0-7.3) 07/26/20 04:27 Eos % (Auto) 0.0 % (0.0-4.3) 07/26/20 04:27 Baso % (Auto) 0.1 % (0.0-1.8) 07/26/20 04:27 Lymph # (Auto) 1.2 K/mm3 (1.2-5.4) 07/26/20 04:27 Ness # (Auto) 0.6 K/mm3 (0.0-0.8) 07/26/20 04:27 Eos # (Auto) 0.0 K/mm3 (0.0-0.4) 07/26/20 04:27 Baso # (Auto) 0.0 K/mm3 (0.0-0.1) 07/26/20 04:27 Seg Neutrophils % 85.6 % (40.0-70.0) H 07/26/20 04:27 Seg Neutrophils # 10.3 K/mm3 (1.8-7.7) H 07/26/20 04:27 D-Dimer 1015.95 ng/mlDDU (0-234) H 07/26/20 04:27 Sodium 135 mmol/L (137-145) L 07/26/20 04:27 Potassium 4.1 mmol/L (3.6-5.0) 07/26/20 04:27 Chloride 99.0 mmol/L (98-107) 07/26/20 04:27 Carbon Dioxide 24 mmol/L (22-30) 07/26/20 04:27 Anion Gap 16 mmol/L 07/26/20 04:27 BUN 19 mg/dL (7-17) H 07/26/20 04:27 Creatinine 0.8 mg/dL (0.6-1.2) 07/26/20 04:27 Estimated GFR > 60 ml/min 07/26/20 04:27 BUN/Creatinine Ratio 24 % 07/26/20 04:27 Glucose 475 mg/dL (65-100) H 07/27/20 18:51 POC Glucose 283 mg/dL (70-105) H 07/28/20 11:43 Lactic Acid 1.30 mmol/L (0.7-2.0) 07/23/20 05:43 Calcium 8.6 mg/dL (8.4-10.2) 07/26/20 04:27 Ferritin 330.5 ng/mL (10.0-200.0) H 07/26/20 04:27 Total Bilirubin 0.20 mg/dL (0.1-1.2) 07/27/20 05:45 Direct Bilirubin < 0.2 mg/dL (0-0.2) 07/27/20 05:45 Indirect Bilirubin 0.0 mg/dL 07/27/20 05:45 AST 11 units/L (5-40) 07/27/20 05:45 ALT 25 units/L (7-56) 07/27/20 05:45 Alkaline Phosphatase 69 units/L (35-129) 07/27/20 05:45 Lactate Dehydrogenase 149 units/L (91-180) 07/26/20 04:27 C-Reactive Protein 3.80 mg/dL (0.00-1.30) H 07/26/20 04:27 Total Protein 5.8 g/dL (6.3-8.2) L 07/27/20 05:45 Albumin 3.2 g/dL (3.9-5) L 07/27/20 05:45 Albumin/Globulin Ratio 1.2 % 07/27/20 05:45 Procalcitonin 0.07 ng/mL (<0.15) 07/22/20 18:21 TSH 0.713 mlU/mL (0.270-4.200) 07/25/20 08:47 Free T4 1.15 ng/dL (0.76-1.46) 07/25/20 08:47 Vancomycin Trough 12.8 ug/mL (5.0-20.0) 07/25/20 14:55 Coronavirus (PCR) Positive (Negative) A 07/23/20 10:11 Microbiology: Microbiology 07/25/20 19:06 Peripheral/Venous Blood Culture - Preliminary NO GROWTH AFTER 48 HOURS 07/25/20 19:06 Peripheral/Venous Blood Culture - Preliminary NO GROWTH AFTER 48 HOURS 07/22/20 18:21 Peripheral/Venous Blood Culture - Final NO GROWTH AFTER 5 DAYS [place]/IV: Voiding Method Toilet IV Catheter Type [Right INT / Saline Lock Forearm] IV Catheter Type [Right Hand] INT / Saline Lock Active Medications - Current Medications Current Medications: Generic Name Dose Route Start Last Admin Trade Name Freq PRN Reason Stop Dose Admin Acetaminophen 650 mg 07/22/20 19:12 07/23/20 08:21 Acetaminophen 325 Mg Tab PO 650 mg Q4H PRN Administration Pain MILD(1-3)/Fever >100.5/JEFFERY Albuterol 2.5 mg 07/22/20 19:12 Albuterol 2.5 Mg/3 Ml Nebu IH Q4HRT PRN Shortness Of Breath Atorvastatin Calcium 20 mg 07/28/20 22:00 Atorvastatin 20 Mg Tab PO QHS GILDA Dexamethasone 6 mg 07/28/20 12:00 07/28/20 12:43 Dexamethasone 4 Mg Tab PO 08/01/20 10:01 6 mg DAILY GILDA Administration Enoxaparin Sodium 40 mg 07/23/20 22:00 07/27/20 21:01 Enoxaparin 40 Mg/0.4 Ml Inj SUB-Q 40 mg QDAY@2200 GILDA Administration Protocol Famotidine 10 mg 07/22/20 22:00 07/28/20 09:19 Famotidine 10 Mg Tab PO 10 mg BID GILDA Administration Hydralazine HCl 10 mg 07/28/20 05:48 07/28/20 06:20 Hydralazine 20 Mg/1 Ml Inj IV 10 mg Q6H PRN Administration Blood Pressure Hydrochlorothiazide 25 mg 07/28/20 10:00 07/28/20 09:19 Hydrochlorothiazide 25 Mg Tab PO 25 mg QDAY GILDA Administration Hydromorphone HCl 0.25 mg 07/22/20 19:12 07/22/20 19:48 Hydromorphone 1 Mg/1 Ml Inj IV 0.25 mg Q4H PRN Administration Pain, Moderate (4-6) Vancomycin HCl 1,500 mg/ 530 mls @ 333.333 mls/hr 07/24/20 03:00 07/28/20 04:28 Sodium Chloride IV 333.333 mls/hr Q12H GILDA Administration REMDESIVIR 100 mg/ Sodium 250 mls @ 500 mls/hr 07/25/20 21:00 07/27/20 21:00 Chloride IV 07/28/20 21:29 250 mls/hr Q24HR@2100 GILDA Administration Insulin Human Isoph/Insulin Regular 46 unit 07/28/20 17:00 Insulin Nph/Regular 70/30 Inj SUB-Q QPMDIAB GILDA Insulin Human Isoph/Insulin Regular 50 unit 07/28/20 08:30 07/28/20 08:53 Insulin Nph/Regular 70/30 Inj SUB-Q 50 unit QDDIAB GILDA Administration Insulin Human Regular 0 unit 07/22/20 22:00 07/28/20 12:39 Insulin Regular, Human 100 Unit/Ml 3ml Vial SUB-Q 4 unit ACHS GILDA Administration Protocol Ondansetron HCl 4 mg 07/22/20 19:12 Ondansetron 4 Mg/2 Ml Inj IV Q8H PRN Nausea And Vomiting Pseudoephedrine/Acetam/Chlorphenir 10 ml 07/23/20 21:37 07/24/20 21:13 Guaifenesin/Codeine 100-10mg Oral Liqd 5 Ml PO 10 ml Q4H PRN Administration Cough Sodium Chloride 10 ml 07/22/20 22:00 07/28/20 09:20 Sodium Chloride 0.9% 10 Ml Flush Syringe IV 10 ml BID GILDA Administration Sodium Chloride 10 ml 07/22/20 19:12 Sodium Chloride 0.9% 10 Ml Flush Syringe IV PRN PRN LINE FLUSH Sodium Chloride 50 ml 07/25/20 21:00 07/27/20 22:11 Sodium Chloride 0.9% 50 Ml Ivpb IV 07/28/20 21:01 50 ml Q24HR@2100 GILDA Administration Nutrition/Malnutrition Assess - Dietary Evaluation Nutrition/Malnutrition Findings: Nutrition Notes Start: 07/23/20 13:57 Freq: Status: Active Protocol: Document 07/28/20 11:47 AB (Rec: 07/28/20 11:50 AB [id number]) Co-Sign 07/28/20 11:47 MK Nutrition Notes Initial or Follow up Brief Note Current Diagnosis Diabetes,Sepsis,Hypertension, Hyperlipidemia Other Pertinent Diagnosis Bilat pneu Current Diet Cardiac/Consistent Carb Usual Body Weight 122.7 kg Subjective/Other Information F/U for full MST assessment. Per pt, she has been eating all meals 100%. Pt hasn't had any wt loss. No signs of wasting or body fat depletion. Nutrition Intervention Revisit per MD consult or patient Sign Off request:
[2020-07-28] MEDS: ACETAMINOPHEN 325 MG TAB PO PRN (22:25)
[2020-07-28] MEDS: REMDESIVIR 100 MG in SODIUM CHLORIDE 0.9% 250ML 250 ML IV SCH (22:25)
[2020-07-28] MEDS: ENOXAPARIN 40 MG/0.4 ML INJ SUB-Q SCH (22:26)
[2020-07-28] MEDS: SODIUM CHLORIDE 0.9% 50 ML IVPB IV SCH (23:21)
[2020-07-29] MEDS: VANCOMYCIN 1,500 MG in SODIUM CHLORIDE 0.9% 500 ML 500 ML IV SCH ×2 (05:22→14:33)
[2020-07-29 06:16] LABS: BUN/Creatinine Ratio 25; Blood Urea Nitrogen 20 mg/dL (7-17); Hemolysis Index 5
--- NOTE | 2020-07-29 08:54 | Progress Note ---
Assessment and Plan Sinus bradycardia, transient currently she is sinus rhythm on telemetry TSH is normal at 0.71. COVID 19 viral pneumonia Staph aureus bacteremia HTN Diabetes Obesity Echocardiogram ordered shows a mild to moderate LV dysfunction, EF 40-45%, but no evident valvular vegetations. Continue telemetry monitoring of intermittent bradycardia. Conservative cardiac management. Subjective Date of service: 07/29/20 Interval history: Patient appears comfortable. No cardiac events reported. Currently, she is sinus rhythm, rate 72 on telemetry monitoring. Objective Vital Signs Temp Pulse Resp BP Pulse Ox 07/29/20 05:48 98.3 F 54 L 20 145/69 95 07/29/20 00:45 96 07/28/20 22:20 98.2 F 64 18 151/79 94 07/28/20 17:30 96 07/28/20 16:06 98.0 F 74 18 156/83 99 - Physical Examination Narrative exam: Deferred due to isolation protocol. General: No Apparent Distress Cardiac: Positive: Reg Rate and Rhythm - Labs and Meds Comprehensive Metabolic Panel 07/29/20 Range/Units 04:43 Sodium 138 (137-145) mmol/L Potassium 3.9 (3.6-5.0) mmol/L Chloride 99.2 (98-107) mmol/L Carbon Dioxide 30 (22-30) mmol/L BUN 20 H (7-17) mg/dL Creatinine 0.8 (0.6-1.2) mg/dL Glucose 184 H (65-100) mg/dL Calcium 9.0 (8.4-10.2) mg/dL
[2020-07-29] MEDS: INSULIN REGULAR, HUMAN 100 UNIT/ML 3ML VIAL SUB-Q SCH ×4 (09:07→21:39)
[2020-07-29] MEDS: INSULIN NPH/REGULAR 70/30 INJ SUB-Q SCH ×2 (09:08→17:48)
[2020-07-29] MEDS: FAMOTIDINE 10 MG TAB PO SCH ×2 (09:11→21:32)
[2020-07-29] MEDS: DEXAMETHASONE 4 MG TAB PO SCH (09:11)
[2020-07-29] MEDS: hydroCHLOROthiazide 25 MG TAB PO SCH (09:11)
--- NOTE | 2020-07-29 10:27 | Progress Note ---
Assessment and Plan Cultures: SARS CoV2 PCR: Positive 07/22/2020 blood culture: 1 bottle with staph aureus 07/25/2020 blood culture: Pending A/P: 59-year-old female with hypertension, obesity, diabetes, asthma was admitted to the hospital with symptoms of not feeling well for the past 1 week: #Bilateral pneumonia: Secondary to COVID-19. CTA with patchy pneumonia b/l. #Acute hypoxic respiratory failure: On supplemental oxygen #Staph aureus bacteremia: Follow-up final culture report. #Obesity Recs: -IV/PO Dexamethasone 6 mg daily x 10 days -Continue IV vancomycin for now, follow-up blood cultures for DESHAUN -Follow-up repeat blood cultures. Negative x48h now. -Completed Remdesivir -prophylactic anticoagulation based on d-dimer per hospital protocol -trend ferritin, LDH, d-dimer, CRP every 2-3 days for risk stratification and to assess disease progression -Ordered PICC line for prison antibiotics. -case management consulted for vancomycin 1500mg q12h until 08/22/2020. Unfortunately due to her co-morbidities she is not a candidate for a shorter course -May need to change Abx as an outpatient. -Follow up in my clinic in 2-3 weeks. Can be done via telemedicine -OK for DC when PICC and home antibiotics in place. ID will sign off for now. Please call with questions. Travis Francisco MD [facility] O: [phone] F: [phone] Subjective Date of service: 07/29/20 Interval history: Afebrile, no acute change at present. Objective - Exam Narrative Exam: Physical exam deferred due to PPE conservation strategy. Please refer to primary team's note. - Constitutional Vitals: Vital Signs Temp Pulse Resp BP Pulse Ox 98.3 F 54 L 20 145/69 95 07/29/20 05:48 07/29/20 05:48 07/29/20 05:48 07/29/20 05:48 07/29/20 05:48 Temperature -Last 24 Hours Temperature 98.3 F Temperature 98.2 F Temperature 98.0 F - Labs CBC & Chem 7: 07/26/20 04:27 07/29/20 04:43 Labs: Abnormal lab results 07/25/20 07/28/20 07/28/20 Range/Units 08:47 11:43 16:09 BUN (7-17) mg/dL Glucose (65-100) mg/dL POC Glucose 283 H 374 H (70-105) mg/dL Free T3 Index 1.5 L (2.3-4.2) pg/mL 07/28/20 07/29/20 07/29/20 Range/Units 22:34 04:43 07:56 BUN 20 H (7-17) mg/dL Glucose 184 H (65-100) mg/dL POC Glucose 306 H 114 H (70-105) mg/dL Free T3 Index (2.3-4.2) pg/mL
--- NOTE | 2020-07-29 13:39 | Discharge Summary ---
Providers - Providers Date of Admission: 07/22/20 20:48 Date of discharge: 08/01/20 Attending physician: KAY GRIGGS 07/22/20 19:12 Consult to Physician [CONS] Routine Comment: Consulting Provider: KIKO SOLOMON Physician Instructions: Reason For Exam: pui 07/27/20 11:01 Consult to Physician [CONS] Routine Comment: Consulting Provider: RAMYA ELENA Physician Instructions: Reason For Exam: Bradycardia 07/28/20 13:25 Consult to Case Management [CONS] Routine Services Needed at Discharge: Home Health Services Notified:: CM Additional Physician Instructions: Travis Auguste MD [facility] M: [phone] O: [phone] F: [phone] Outpatient parenteral antibiotic therapy orders Diagnosis: Staph aureus bacteremia Antibiotic administration: vancomycin 1.5g q12h until 08/22/2020 Line: PICC Lab monitoring: CBC with differential, BUN, creatinine, LFTs, vancomycin trough once per week preferably on Saturday or Saturday Vancomycin: Check creatinine and vancomycin trough every Saturday and , fax results to [phone] For critical labs, call office: [phone] Travis Auguste Consult to PICC Line RN [CONS] Routine Reason For Exam: halfway vanco Type Line:: PICC Primary care physician: NDT INSPECTOR Hospitalization Condition: Fair Hospital course: HPI ------ 56 YO Female with HTN, HLD, DM, Obesity Hypoventilation Syndrome, Migraine Headache, GERD, OA, Asthma presents to ED for evaluation. Patient states that she has "not been feeling well" over the past 1 week with persistently worsening symptoms over the same timeframe. Patient states that she has experienced shortness of breath, fever, malaise, body aches, generalized weakness, decreased exercise tolerance, loss of sense of smell, loss of sense of taste. Patient acknowledges fever to 102.5 F. Patient transported to [facility] via private vehicle for further care and evaluation of the aforementioned symptoms. The patient was seen and evaluated in the emergency department. All lab and imaging studies reviewed. Patient underwent a chest x-ray which revealed pneumonia which is complicated by Sepsis. The patient was found to have a pulse oximetry of 86% on room air with exertion which is consistent with acute hypoxemic respiratory failure. The patient was placed on supplemental oxygen in the emergency department with mild improvement in symptoms. Patient admitted to medical floor and initiated on sepsis and pneumonia protocol. Patient also initiated on coronavirus protocol. Patient denies chills, palpitations, skin rash, recent ill contacts, trauma. Prior admission on 03/28/2017 reviewed.. No medication listed for reconciliation at the time of my admission Hospital course 07/23/2020. Await COVID-19 testing. D-dimer elevated at 978. Check CTA of chest to rule out PE. Elevated BG likely related to steroids. Start Lantus at bedtime. Continue sliding scale regular insulin and Accu-Cheks. Continue IV antibiotics per ID recommendations. Follow-up procalcitonin levels. 07/24/2020. Covid testing + 07/23/2020. CTA of the chest revealed patchy bilateral pneumonia and an incidental thyroid nodule. No evidence of PE. Procalcitonin level normal. However, blood cultures suggestive of bacteremia but may be a contaminant (1/4 bottles GPC). Await ID and sensitivities continue antibiotics until ID consult evaluation. Evaluate with exercise pulse oximetry. 07/25/2020. Covid testing + 07/23/2020. CTA of the chest revealed patchy bilateral pneumonia and an incidental thyroid nodule. Check TSH, T3, T4. Consider thyroid scan. No evidence of PE. Procalcitonin level normal. However, blood cultures suggestive of bacteremia but may be a contaminant (1/4 bottles GPC). Await ID and sensitivities. Continue antibiotics per ID recommendations. Continue to trend inflammatory markers. Continue dexamethasone and remdesivir. 07/26/2020. Blood culture remains negative so initial blood culture could be as a result of contaminant. Awaiting TTE. Continue dexamethasone and remdesivir. Heart rate is slightly low in the 40s to 50s. Patient is asymptomatic. TSH and free T4 within normal limits. Monitor for now. Placed on telemetry. Check EKG. 07/27/2020. BC remains NTD. Awaiting TTE. On dexamethasone and remdesivir. HR in the 40-50's. She is asymptomatic. Will continue to monitor. 07/28. TTE - negative. BC NTD. Plan for home IV antibiotics. CM to arrange. Needs a PICC line 07/29. She will be on vancomycin until 08/22. PICC line has been placed. She will have outpatient antibiotics during that duration and then follow up with ID in 2 weeks. She had a walk test and her sats remained above 94%. Home health service not available so she will be staying over the weekend. 07/30. She has no complaints today. Awaiting setup. Remains on antibiotics 07/31. No acute changes. Awaiting home health set up. 08/01. Home health has been set up. Patient will be discharged home to continue antibiotics (last dose on 08/22/2020). She agrees with plan Disposition: - TO HOME OR SELFCARE Time spent for discharge: 40 minutes - Discharge Diagnoses (1) COVID-19 virus infection Status: Acute (2) Acute hypoxemic respiratory failure Status: Acute (3) Bilateral pneumonia Status: Acute (4) HTN (hypertension) Status: Acute Qualifiers: Hypertension type: essential hypertension Qualified Code(s): I10 - Essential (primary) hypertension Core Measure Documentation - Palliative Care Palliative Care/ Comfort Measures: Not Applicable - Core Measures Any of the following diagnoses?: none Exam - Physical Exam Narrative exam: VITAL SIGNS: Reviewed. GENERAL: Awake HEAD: No signs of head trauma. EYES: Pupils are equal. Extraocular motions intact. MOUTH: Oropharynx is normal. NECK: No adenopathy, no JVD. CHEST: Chest with diminished breath sounds bilaterally. No wheezes, rales, or rhonchi. CARDIAC: normal S1 and S2, without murmurs, gallops, or rubs. ABDOMEN: Soft, non tender and non distended. No rebound or guarding, and no masses palpated. Bowel Sounds normal. MUSCULOSKELETAL: No edema NEUROLOGIC EXAM: Alert and oriented x3. No focal neurologic deficits SKIN: No obvious lesions - Constitutional Vitals: Temp Pulse Resp BP Pulse Ox 98.3 F 54 L 20 145/69 95 07/29/20 05:48 07/29/20 05:48 07/29/20 05:48 07/29/20 05:48 07/29/20 05:48 Plan Activity: no restrictions Diet: low salt, diabetic Additional Instructions: Continue vancomycin as ordered until 08/22/2020. Follow- up with infectious disease team in the clinic in 2 weeks. Follow-up with your primary medical doctor for evaluation of small nodule in the thyroid in 2 to 3 weeks Follow up with: PRIMARY CARE, [Primary Care Provider] - 3-5 Days CONSUELO AUGUSTE MD [Staff Physician] - 7 Days Prescriptions: dexAMETHasone [Dexamethasone] 6 mg PO DAILY #4 tablet
[2020-07-29] MEDS: ENOXAPARIN 40 MG/0.4 ML INJ SUB-Q SCH (21:31)
[2020-07-30] MEDS: VANCOMYCIN 1,500 MG in SODIUM CHLORIDE 0.9% 500 ML 500 ML IV SCH ×2 (02:57→17:11)
[2020-07-30] MEDS: hydroCHLOROthiazide 25 MG TAB PO SCH (09:07)
[2020-07-30] MEDS: DEXAMETHASONE 4 MG TAB PO SCH (09:07)
[2020-07-30] MEDS: FAMOTIDINE 10 MG TAB PO SCH ×2 (09:07→21:51)
[2020-07-30] MEDS: INSULIN NPH/REGULAR 70/30 INJ SUB-Q SCH ×2 (09:07→17:11)
[2020-07-30] MEDS: INSULIN REGULAR, HUMAN 100 UNIT/ML 3ML VIAL SUB-Q SCH ×4 (09:08→21:52)
--- NOTE | 2020-07-30 09:26 | Progress Note ---
Assessment and Plan Sinus bradycardia, transient currently she is sinus rhythm on telemetry TSH is normal at 0.71. COVID 19 viral pneumonia Staph aureus bacteremia HTN Diabetes Obesity Echocardiogram ordered shows a mild to moderate LV dysfunction, EF 40-45%, but no evident valvular vegetations. Continue telemetry monitoring of intermittent bradycardia. Conservative cardiac management. Subjective Date of service: 07/30/20 Principal diagnosis: Bradycardia Interval history: No events reported overnight Objective Vital Signs Temp Pulse Pulse Resp BP Pulse Ox 07/29/20 23:54 97.9 F 71 20 153/60 94 07/29/20 23:00 71 20 94 07/29/20 16:52 98.6 F 63 22 142/73 94 07/29/20 11:49 98.6 F 65 22 139/89 93 07/29/20 10:00 97 - Physical Examination Narrative exam: In view of the Covid isolation protocol and to minimize exposure patient was not directly examined by me. Prior work-up prior examination recent work-up and recent examination was reviewed. General: No Apparent Distress
--- NOTE | 2020-07-30 10:06 | Progress Note ---
Assessment and Plan Assessment and plan: Sepsis Continue IV antibiotics-vancomycin Blood culture x1/4 +ve for Staphylococcus. Repeat blood culture NTD TTE negative for endocarditis. ID recommendations appreciated She will be on vancomycin 1500mg BID until 08/22. PICC line has been placed. Needs to have home health arranged prior to DC Acute hypoxemic respiratory failure Resolved Continue oxygen supplementation Remains above 95% on RA COVID-19 pneumonia Completed remdesivir ID recommendations appreciated Trend inflammatory markers Incentive parameter Prone positioning if able Diabetes Continue insulin HTN (hypertension) Monitor blood pressure every shift, continue medical management. Obesity hypoventilation syndrome Supplemental oxygen, pulse oximetry, chest x-ray, balanced diet, increase physical activity at discharge, outpatient pulmonary follow-up for sleep study. Thyroid nodule Thyroid function test within normal limits Needs endocrinology or PCP follow-up at discharge Bradycardia EKG shows sinus bradycardia with IVCD. Likely as a result of remdesivir- Improved Monitor on telemetry for now. TSH and free T4 remain within normal limits DVT prophylaxis SCD to bilateral lower extremities while in bed, prophylactic anticoagulation. 07/23/2020. Await COVID-19 testing. D-dimer elevated at 978. Check CTA of chest to rule out PE. Elevated BG likely related to steroids. Start Lantus at bedtime. Continue sliding scale regular insulin and Accu-Cheks. Continue IV antibiotics per ID recommendations. Follow-up procalcitonin levels. 07/24/2020. Covid testing + 07/23/2020. CTA of the chest revealed patchy bilateral pneumonia and an incidental thyroid nodule. No evidence of PE. Procalcitonin level normal. However, blood cultures suggestive of bacteremia but may be a contaminant (1/4 bottles GPC). Await ID and sensitivities continue antibiotics until ID consult evaluation. Evaluate with exercise pulse oximetry. 07/25/2020. Covid testing + 07/23/2020. CTA of the chest revealed patchy bilateral pneumonia and an incidental thyroid nodule. Check TSH, T3, T4. Consider thyroid scan. No evidence of PE. Procalcitonin level normal. However, blood cultures suggestive of bacteremia but may be a contaminant (1/4 bottles GPC). Await ID and sensitivities. Continue antibiotics per ID recommendations. Continue to trend inflammatory markers. Continue dexamethasone and remdesivir. 07/26/2020. Blood culture remains negative so initial blood culture could be as a result of contaminant. Awaiting TTE. Continue dexamethasone and remdesivir. Heart rate is slightly low in the 40s to 50s. Patient is asymptomatic. TSH and free T4 within normal limits. Monitor for now. Placed on telemetry. Check EKG. 07/27/2020. BC remains NTD. Awaiting TTE. On dexamethasone and remdesivir. HR in the 40-50's. She is asymptomatic. Will continue to monitor. 07/28. TTE - negative. BC NTD. Plan for home IV antibiotics. CM to arrange. Needs a PICC line 07/29. She will be on vancomycin until 08/22. PICC line has been placed. She will have outpatient antibiotics during that duration and then follow up with ID in 2 weeks. She had a walk test and her sats remained above 94%. Home health service not available so she will be staying over the weekend. 07/30. She has no complaints today. Awaiting HH setup. Remains on antibiotics - Patient Problems (1) COVID-19 virus infection Current Visit: Yes Status: Acute (2) Acute hypoxemic respiratory failure Current Visit: Yes Status: Acute (3) Bilateral pneumonia Current Visit: Yes Status: Acute (4) HTN (hypertension) Current Visit: No Status: Acute Qualifiers: Hypertension type: essential hypertension Qualified Code(s): I10 - Essential (primary) hypertension History Interval history: Has no complaints today. No acute events noted overnight. Hospitalist Physical - Constitutional Vitals: Temp Pulse Resp BP Pulse Ox 97.9 F 71 20 153/60 94 07/29/20 23:54 07/29/20 23:54 07/29/20 23:54 07/29/20 23:54 07/29/20 23:54 General appearance: Present: no acute distress Results - Labs CBC & Chem 7: 07/26/20 04:27 07/29/20 04:43 Labs: Laboratory Last Values WBC 12.4 K/mm3 (4.5-11.0) H 07/26/20 04:27 RBC 3.96 M/mm3 (3.65-5.03) 07/26/20 04:27 Hgb 10.1 gm/dl (10.1-14.3) 07/26/20 04:27 Hct 31.4 % (30.3-42.9) 07/26/20 04:27 MCV 79 fl (79-97) 07/26/20 04:27 MCH 26 pg (28-32) L 07/26/20 04:27 MCHC 32 % (30-34) 07/26/20 04:27 RDW 14.9 % (13.2-15.2) 07/26/20 04:27 Plt Count 362 K/mm3 (140-440) 07/26/20 04:27 Lymph % (Auto) 9.3 % (13.4-35.0) L 07/26/20 04:27 [place] % (Auto) 5.0 % (0.0-7.3) 07/26/20 04:27 Eos % (Auto) 0.0 % (0.0-4.3) 07/26/20 04:27 Baso % (Auto) 0.1 % (0.0-1.8) 07/26/20 04:27 Lymph # (Auto) 1.2 K/mm3 (1.2-5.4) 07/26/20 04:27 [place] # (Auto) 0.6 K/mm3 (0.0-0.8) 07/26/20 04:27 Eos # (Auto) 0.0 K/mm3 (0.0-0.4) 07/26/20 04:27 Baso # (Auto) 0.0 K/mm3 (0.0-0.1) 07/26/20 04:27 Seg Neutrophils % 85.6 % (40.0-70.0) H 07/26/20 04:27 Seg Neutrophils # 10.3 K/mm3 (1.8-7.7) H 07/26/20 04:27 D-Dimer 1015.95 ng/mlDDU (0-234) H 07/26/20 04:27 Sodium 138 mmol/L (137-145) 07/29/20 04:43 Potassium 3.9 mmol/L (3.6-5.0) 07/29/20 04:43 Chloride 99.2 mmol/L (98-107) 07/29/20 04:43 Carbon Dioxide 30 mmol/L (22-30) 07/29/20 04:43 Anion Gap 13 mmol/L 07/29/20 04:43 BUN 20 mg/dL (7-17) H 07/29/20 04:43 Creatinine 0.8 mg/dL (0.6-1.2) 07/29/20 04:43 Estimated GFR > 60 ml/min 07/29/20 04:43 BUN/Creatinine Ratio 25 % 07/29/20 04:43 Glucose 184 mg/dL (65-100) H 07/29/20 04:43 POC Glucose 150 mg/dL (70-105) H 07/30/20 07:52 Lactic Acid 1.30 mmol/L (0.7-2.0) 07/23/20 05:43 Calcium 9.0 mg/dL (8.4-10.2) 07/29/20 04:43 Ferritin 330.5 ng/mL (10.0-200.0) H 07/26/20 04:27 Total Bilirubin 0.20 mg/dL (0.1-1.2) 07/27/20 05:45 Direct Bilirubin < 0.2 mg/dL (0-0.2) 07/27/20 05:45 Indirect Bilirubin 0.0 mg/dL 07/27/20 05:45 AST 11 units/L (5-40) 07/27/20 05:45 ALT 25 units/L (7-56) 07/27/20 05:45 Alkaline Phosphatase 69 units/L (35-129) 07/27/20 05:45 Lactate Dehydrogenase 149 units/L (91-180) 07/26/20 04:27 C-Reactive Protein 3.80 mg/dL (0.00-1.30) H 07/26/20 04:27 Total Protein 5.8 g/dL (6.3-8.2) L 07/27/20 05:45 Albumin 3.2 g/dL (3.9-5) L 07/27/20 05:45 Albumin/Globulin Ratio 1.2 % 07/27/20 05:45 Procalcitonin 0.07 ng/mL (<0.15) 07/22/20 18:21 TSH 0.713 mlU/mL (0.270-4.200) 07/25/20 08:47 Free T4 1.15 ng/dL (0.76-1.46) 07/25/20 08:47 Free T3 Index 1.5 pg/mL (2.3-4.2) L 07/25/20 08:47 Vancomycin Trough 12.8 ug/mL (5.0-20.0) 07/25/20 14:55 Coronavirus (PCR) Positive (Negative) A 07/23/20 10:11 Microbiology: Microbiology 07/25/20 19:06 Peripheral/Venous Blood Culture - Preliminary NO GROWTH AFTER 4 DAYS 07/25/20 19:06 Peripheral/Venous Blood Culture - Preliminary NO GROWTH AFTER 4 DAYS 07/22/20 18:30 Peripheral/Venous Blood Culture - Preliminary Staphylococcus Aureus [place]/IV: Voiding Method Toilet IV Catheter Type [Right Upper PICC Line arm] IV Catheter Type [Right INT / Saline Lock Forearm] IV Catheter Type [Right Hand] INT / Saline Lock Active Medications - Current Medications Current Medications: Generic Name Dose Route Start Last Admin Trade Name Freq PRN Reason Stop Dose Admin Acetaminophen 650 mg 07/22/20 19:12 07/28/20 22:25 Acetaminophen 325 Mg Tab PO 650 mg Q4H PRN Administration Pain MILD(1-3)/Fever >100.5/JEFFERY Albuterol 2.5 mg 07/22/20 19:12 Albuterol 2.5 Mg/3 Ml Nebu IH Q4HRT PRN Shortness Of Breath Atorvastatin Calcium 20 mg 07/28/20 22:00 07/29/20 21:32 Atorvastatin 20 Mg Tab PO 20 mg QHS GILDA Administration Dexamethasone 6 mg 07/28/20 12:00 07/30/20 09:07 Dexamethasone 4 Mg Tab PO 08/01/20 10:01 6 mg DAILY GILDA Administration Enoxaparin Sodium 40 mg 07/23/20 22:00 07/29/20 21:31 Enoxaparin 40 Mg/0.4 Ml Inj SUB-Q 40 mg QDAY@2200 GILDA Administration Protocol Famotidine 10 mg 07/22/20 22:00 07/30/20 09:07 Famotidine 10 Mg Tab PO 10 mg BID GILDA Administration Hydralazine HCl 10 mg 07/28/20 05:48 07/28/20 06:20 Hydralazine 20 Mg/1 Ml Inj IV 10 mg Q6H PRN Administration Blood Pressure Hydrochlorothiazide 25 mg 07/28/20 10:00 07/30/20 09:07 Hydrochlorothiazide 25 Mg Tab PO 25 mg QDAY GILDA Administration Hydromorphone HCl 0.25 mg 07/22/20 19:12 07/22/20 19:48 Hydromorphone 1 Mg/1 Ml Inj IV 0.25 mg Q4H PRN Administration Pain, Moderate (4-6) Vancomycin HCl 1,500 mg/ 530 mls @ 333.333 mls/hr 07/24/20 03:00 07/30/20 02:57 Sodium Chloride IV 08/22/20 16:36 333.333 mls/hr Q12H GILDA Administration Insulin Human Isoph/Insulin Regular 46 unit 07/28/20 17:00 07/29/20 17:48 Insulin Nph/Regular 70/30 Inj SUB-Q 46 unit QPMDIAB GILDA Administration Insulin Human Isoph/Insulin Regular 50 unit 07/28/20 08:30 07/30/20 09:07 Insulin Nph/Regular 70/30 Inj SUB-Q 50 unit QDDIAB GILDA Administration Insulin Human Regular 0 unit 07/22/20 22:00 07/30/20 09:08 Insulin Regular, Human 100 Unit/Ml 3ml Vial SUB-Q 2 unit ACHS GILDA Administration Protocol Ondansetron HCl 4 mg 07/22/20 19:12 Ondansetron 4 Mg/2 Ml Inj IV Q8H PRN Nausea And Vomiting Pseudoephedrine/Acetam/Chlorphenir 10 ml 07/23/20 21:37 07/24/20 21:13 Guaifenesin/Codeine 100-10mg Oral Liqd 5 Ml PO 10 ml Q4H PRN Administration Cough Sodium Chloride 10 ml 07/22/20 22:00 07/30/20 09:08 Sodium Chloride 0.9% 10 Ml Flush Syringe IV 10 ml BID GILDA Administration Sodium Chloride 10 ml 07/22/20 19:12 Sodium Chloride 0.9% 10 Ml Flush Syringe IV PRN PRN LINE FLUSH Nutrition/Malnutrition Assess - Dietary Evaluation Nutrition/Malnutrition Findings: Nutrition Notes Start: 07/23/20 13:57 Freq: Status: Active Protocol: Document 07/28/20 11:47 AB (Rec: 07/28/20 11:50 AB [id number]) Co-Sign 07/28/20 11:47 MK Nutrition Notes Initial or Follow up Brief Note Current Diagnosis Diabetes,Sepsis,Hypertension, Hyperlipidemia Other Pertinent Diagnosis Bilat pneu Current Diet Cardiac/Consistent Carb Usual Body Weight 122.7 kg Subjective/Other Information F/U for full MST assessment. Per pt, she has been eating all meals 100%. Pt hasn't had any wt loss. No signs of wasting or body fat depletion. Nutrition Intervention Revisit per MD consult or patient Sign Off request:
--- NOTE | 2020-07-30 10:09 | Progress Note ---
Assessment and Plan Assessment and plan: Sepsis Continue IV antibiotics-vancomycin Blood culture x1/4 +ve for Staphylococcus. Repeat blood culture NTD TTE negative for endocarditis. ID recommendations appreciated She will be on vancomycin 1500mg BID until 08/22. PICC line has been placed. Needs to have home health arranged prior to DC Acute hypoxemic respiratory failure Resolved Continue oxygen supplementation Remains above 95% on RA COVID-19 pneumonia Completed remdesivir ID recommendations appreciated Trend inflammatory markers Incentive parameter Prone positioning if able Diabetes Continue insulin HTN (hypertension) Monitor blood pressure every shift, continue medical management. Obesity hypoventilation syndrome Supplemental oxygen, pulse oximetry, chest x-ray, balanced diet, increase physical activity at discharge, outpatient pulmonary follow-up for sleep study. Thyroid nodule Thyroid function test within normal limits Needs endocrinology or PCP follow-up at discharge Bradycardia EKG shows sinus bradycardia with IVCD. Likely as a result of remdesivir- Improved Monitor on telemetry for now. TSH and free T4 remain within normal limits DVT prophylaxis SCD to bilateral lower extremities while in bed, prophylactic anticoagulation. 07/23/2020. Await COVID-19 testing. D-dimer elevated at 978. Check CTA of chest to rule out PE. Elevated BG likely related to steroids. Start Lantus at bedtime. Continue sliding scale regular insulin and Accu-Cheks. Continue IV antibiotics per ID recommendations. Follow-up procalcitonin levels. 07/24/2020. Covid testing + 07/23/2020. CTA of the chest revealed patchy bilateral pneumonia and an incidental thyroid nodule. No evidence of PE. Procalcitonin level normal. However, blood cultures suggestive of bacteremia but may be a contaminant (1/4 bottles GPC). Await ID and sensitivities continue antibiotics until ID consult evaluation. Evaluate with exercise pulse oximetry. 07/25/2020. Covid testing + 07/23/2020. CTA of the chest revealed patchy bilateral pneumonia and an incidental thyroid nodule. Check TSH, T3, T4. Consider thyroid scan. No evidence of PE. Procalcitonin level normal. However, blood cultures suggestive of bacteremia but may be a contaminant (1/4 bottles GPC). Await ID and sensitivities. Continue antibiotics per ID recommendations. Continue to trend inflammatory markers. Continue dexamethasone and remdesivir. 07/26/2020. Blood culture remains negative so initial blood culture could be as a result of contaminant. Awaiting TTE. Continue dexamethasone and remdesivir. Heart rate is slightly low in the 40s to 50s. Patient is asymptomatic. TSH and free T4 within normal limits. Monitor for now. Placed on telemetry. Check EKG. 07/27/2020. BC remains NTD. Awaiting TTE. On dexamethasone and remdesivir. HR in the 40-50's. She is asymptomatic. Will continue to monitor. 07/28. TTE - negative. BC NTD. Plan for home IV antibiotics. CM to arrange. Needs a PICC line 07/29. She will be on vancomycin until 08/22. PICC line has been placed. She will have outpatient antibiotics during that duration and then follow up with ID in 2 weeks. She had a walk test and her sats remained above 94%. Home health service not available so she will be staying over the weekend. - Patient Problems (1) COVID-19 virus infection Current Visit: Yes Status: Acute (2) Acute hypoxemic respiratory failure Current Visit: Yes Status: Acute (3) Bilateral pneumonia Current Visit: Yes Status: Acute (4) HTN (hypertension) Current Visit: No Status: Acute Qualifiers: Hypertension type: essential hypertension Qualified Code(s): I10 - Essential (primary) hypertension History Interval history: Has no complaints today. No acute events noted overnight. Hospitalist Physical - Physical exam Narrative exam: VITAL SIGNS: Reviewed. GENERAL: Awake HEAD: No signs of head trauma. EYES: Pupils are equal. Extraocular motions intact. MOUTH: Oropharynx is normal. NECK: No adenopathy, no JVD. CHEST: Chest with diminished breath sounds bilaterally. No wheezes, rales, or rhonchi. CARDIAC: normal S1 and S2, without murmurs, gallops, or rubs. ABDOMEN: Soft, non tender and non distended. No rebound or guarding, and no masses palpated. Bowel Sounds normal. MUSCULOSKELETAL: No edema NEUROLOGIC EXAM: Alert and oriented x3. No focal neurologic deficits SKIN: No obvious lesions - Constitutional Vitals: Temp Pulse Resp BP Pulse Ox 97.9 F 71 20 153/60 94 07/29/20 23:54 07/29/20 23:54 07/29/20 23:54 07/29/20 23:54 07/29/20 23:54 Results - Labs CBC & Chem 7: 07/26/20 04:27 07/29/20 04:43 Labs: Laboratory Last Values WBC 12.4 K/mm3 (4.5-11.0) H 07/26/20 04:27 RBC 3.96 M/mm3 (3.65-5.03) 07/26/20 04:27 Hgb 10.1 gm/dl (10.1-14.3) 07/26/20 04:27 Hct 31.4 % (30.3-42.9) 07/26/20 04:27 MCV 79 fl (79-97) 07/26/20 04:27 MCH 26 pg (28-32) L 07/26/20 04:27 MCHC 32 % (30-34) 07/26/20 04:27 RDW 14.9 % (13.2-15.2) 07/26/20 04:27 Plt Count 362 K/mm3 (140-440) 07/26/20 04:27 Lymph % (Auto) 9.3 % (13.4-35.0) L 07/26/20 04:27 [place] % (Auto) 5.0 % (0.0-7.3) 07/26/20 04:27 Eos % (Auto) 0.0 % (0.0-4.3) 07/26/20 04:27 Baso % (Auto) 0.1 % (0.0-1.8) 07/26/20 04:27 Lymph # (Auto) 1.2 K/mm3 (1.2-5.4) 07/26/20 04:27 [place] # (Auto) 0.6 K/mm3 (0.0-0.8) 07/26/20 04:27 Eos # (Auto) 0.0 K/mm3 (0.0-0.4) 07/26/20 04:27 Baso # (Auto) 0.0 K/mm3 (0.0-0.1) 07/26/20 04:27 Seg Neutrophils % 85.6 % (40.0-70.0) H 07/26/20 04:27 Seg Neutrophils # 10.3 K/mm3 (1.8-7.7) H 07/26/20 04:27 D-Dimer 1015.95 ng/mlDDU (0-234) H 07/26/20 04:27 Sodium 138 mmol/L (137-145) 07/29/20 04:43 Potassium 3.9 mmol/L (3.6-5.0) 07/29/20 04:43 Chloride 99.2 mmol/L (98-107) 07/29/20 04:43 Carbon Dioxide 30 mmol/L (22-30) 07/29/20 04:43 Anion Gap 13 mmol/L 07/29/20 04:43 BUN 20 mg/dL (7-17) H 07/29/20 04:43 Creatinine 0.8 mg/dL (0.6-1.2) 07/29/20 04:43 Estimated GFR > 60 ml/min 07/29/20 04:43 BUN/Creatinine Ratio 25 % 07/29/20 04:43 Glucose 184 mg/dL (65-100) H 07/29/20 04:43 POC Glucose 150 mg/dL (70-105) H 07/30/20 07:52 Lactic Acid 1.30 mmol/L (0.7-2.0) 07/23/20 05:43 Calcium 9.0 mg/dL (8.4-10.2) 07/29/20 04:43 Ferritin 330.5 ng/mL (10.0-200.0) H 07/26/20 04:27 Total Bilirubin 0.20 mg/dL (0.1-1.2) 07/27/20 05:45 Direct Bilirubin < 0.2 mg/dL (0-0.2) 07/27/20 05:45 Indirect Bilirubin 0.0 mg/dL 07/27/20 05:45 AST 11 units/L (5-40) 07/27/20 05:45 ALT 25 units/L (7-56) 07/27/20 05:45 Alkaline Phosphatase 69 units/L (35-129) 07/27/20 05:45 Lactate Dehydrogenase 149 units/L (91-180) 07/26/20 04:27 C-Reactive Protein 3.80 mg/dL (0.00-1.30) H 07/26/20 04:27 Total Protein 5.8 g/dL (6.3-8.2) L 07/27/20 05:45 Albumin 3.2 g/dL (3.9-5) L 07/27/20 05:45 Albumin/Globulin Ratio 1.2 % 07/27/20 05:45 Procalcitonin 0.07 ng/mL (<0.15) 07/22/20 18:21 TSH 0.713 mlU/mL (0.270-4.200) 07/25/20 08:47 Free T4 1.15 ng/dL (0.76-1.46) 07/25/20 08:47 Free T3 Index 1.5 pg/mL (2.3-4.2) L 07/25/20 08:47 Vancomycin Trough 12.8 ug/mL (5.0-20.0) 07/25/20 14:55 Coronavirus (PCR) Positive (Negative) A 07/23/20 10:11 Microbiology: Microbiology 07/25/20 19:06 Peripheral/Venous Blood Culture - Preliminary NO GROWTH AFTER 4 DAYS 07/25/20 19:06 Peripheral/Venous Blood Culture - Preliminary NO GROWTH AFTER 4 DAYS 07/22/20 18:30 Peripheral/Venous Blood Culture - Preliminary Staphylococcus Aureus [place]/IV: Voiding Method Toilet IV Catheter Type [Right Upper PICC Line arm] IV Catheter Type [Right INT / Saline Lock Forearm] IV Catheter Type [Right Hand] INT / Saline Lock Active Medications - Current Medications Current Medications: Generic Name Dose Route Start Last Admin Trade Name Freq PRN Reason Stop Dose Admin Acetaminophen 650 mg 07/22/20 19:12 07/28/20 22:25 Acetaminophen 325 Mg Tab PO 650 mg Q4H PRN Administration Pain MILD(1-3)/Fever >100.5/JEFFERY Albuterol 2.5 mg 07/22/20 19:12 Albuterol 2.5 Mg/3 Ml Nebu IH Q4HRT PRN Shortness Of Breath Atorvastatin Calcium 20 mg 07/28/20 22:00 07/29/20 21:32 Atorvastatin 20 Mg Tab PO 20 mg QHS GILDA Administration Dexamethasone 6 mg 07/28/20 12:00 07/30/20 09:07 Dexamethasone 4 Mg Tab PO 08/01/20 10:01 6 mg DAILY GILDA Administration Enoxaparin Sodium 40 mg 07/23/20 22:00 07/29/20 21:31 Enoxaparin 40 Mg/0.4 Ml Inj SUB-Q 40 mg QDAY@2200 GILDA Administration Protocol Famotidine 10 mg 07/22/20 22:00 07/30/20 09:07 Famotidine 10 Mg Tab PO 10 mg BID GILDA Administration Hydralazine HCl 10 mg 07/28/20 05:48 07/28/20 06:20 Hydralazine 20 Mg/1 Ml Inj IV 10 mg Q6H PRN Administration Blood Pressure Hydrochlorothiazide 25 mg 07/28/20 10:00 07/30/20 09:07 Hydrochlorothiazide 25 Mg Tab PO 25 mg QDAY GILDA Administration Hydromorphone HCl 0.25 mg 07/22/20 19:12 07/22/20 19:48 Hydromorphone 1 Mg/1 Ml Inj IV 0.25 mg Q4H PRN Administration Pain, Moderate (4-6) Vancomycin HCl 1,500 mg/ 530 mls @ 333.333 mls/hr 07/24/20 03:00 07/30/20 02:57 Sodium Chloride IV 08/22/20 16:36 333.333 mls/hr Q12H GILDA Administration Insulin Human Isoph/Insulin Regular 46 unit 07/28/20 17:00 07/29/20 17:48 Insulin Nph/Regular 70/30 Inj SUB-Q 46 unit QPMDIAB GILDA Administration Insulin Human Isoph/Insulin Regular 50 unit 07/28/20 08:30 07/30/20 09:07 Insulin Nph/Regular 70/30 Inj SUB-Q 50 unit QDDIAB GILDA Administration Insulin Human Regular 0 unit 07/22/20 22:00 07/30/20 09:08 Insulin Regular, Human 100 Unit/Ml 3ml Vial SUB-Q 2 unit ACHS GILDA Administration Protocol Ondansetron HCl 4 mg 07/22/20 19:12 Ondansetron 4 Mg/2 Ml Inj IV Q8H PRN Nausea And Vomiting Pseudoephedrine/Acetam/Chlorphenir 10 ml 07/23/20 21:37 07/24/20 21:13 Guaifenesin/Codeine 100-10mg Oral Liqd 5 Ml PO 10 ml Q4H PRN Administration Cough Sodium Chloride 10 ml 07/22/20 22:00 07/30/20 09:08 Sodium Chloride 0.9% 10 Ml Flush Syringe IV 10 ml BID GILDA Administration Sodium Chloride 10 ml 07/22/20 19:12 Sodium Chloride 0.9% 10 Ml Flush Syringe IV PRN PRN LINE FLUSH Nutrition/Malnutrition Assess - Dietary Evaluation Nutrition/Malnutrition Findings: Nutrition Notes Start: 07/23/20 13:57 Freq: Status: Active Protocol: Document 07/28/20 11:47 AB (Rec: 07/28/20 11:50 AB [id number]) Co-Sign 07/28/20 11:47 MK Nutrition Notes Initial or Follow up Brief Note Current Diagnosis Diabetes,Sepsis,Hypertension, Hyperlipidemia Other Pertinent Diagnosis Bilat pneu Current Diet Cardiac/Consistent Carb Usual Body Weight 122.7 kg Subjective/Other Information F/U for full MST assessment. Per pt, she has been eating all meals 100%. Pt hasn't had any wt loss. No signs of wasting or body fat depletion. Nutrition Intervention Revisit per MD consult or patient Sign Off request:
[2020-07-30] MEDS: guaiFENesin/CODEINE 100-10MG ORAL LIQD 5 ML PO PRN (21:51)
[2020-07-30] MEDS: ENOXAPARIN 40 MG/0.4 ML INJ SUB-Q SCH (21:51)
[2020-07-31] MEDS: VANCOMYCIN 1,500 MG in SODIUM CHLORIDE 0.9% 500 ML 500 ML IV SCH ×2 (04:00→15:16)
[2020-07-31] MEDS: INSULIN REGULAR, HUMAN 100 UNIT/ML 3ML VIAL SUB-Q SCH ×4 (08:04→21:41)
[2020-07-31] MEDS: INSULIN NPH/REGULAR 70/30 INJ SUB-Q SCH ×2 (09:49→16:38)
[2020-07-31] MEDS: DEXAMETHASONE 4 MG TAB PO SCH (09:50)
[2020-07-31] MEDS: FAMOTIDINE 10 MG TAB PO SCH ×2 (09:51→21:43)
[2020-07-31] MEDS: hydroCHLOROthiazide 25 MG TAB PO SCH (09:51)
--- NOTE | 2020-07-31 10:04 | Progress Note ---
Assessment and Plan Sinus bradycardia, transient currently she is sinus rhythm on telemetry TSH is normal at 0.71. COVID 19 viral pneumonia Staph aureus bacteremia HTN Diabetes Obesity Echocardiogram ordered shows a mild to moderate LV dysfunction, EF 40-45%, but no evident valvular vegetations. Continue telemetry monitoring of intermittent bradycardia. Conservative cardiac management. Subjective Date of service: 07/31/20 Principal diagnosis: Bradycardia Interval history: No events reported overnight Objective Vital Signs Temp Pulse Pulse Resp BP Pulse Ox 07/31/20 04:07 97.6 F 62 20 143/69 97 07/30/20 23:00 72 20 94 07/30/20 21:48 98.5 F 56 L 20 139/76 97 07/30/20 16:16 98.9 F 70 18 133/71 94 07/30/20 11:47 98.8 F 68 18 134/78 95 07/30/20 11:00 71 20 94 - Physical Examination Narrative exam: In view of the Covid isolation protocol and to minimize exposure patient was not directly examined by me. Prior work-up prior examination recent work-up and recent examination was reviewed. General: No Apparent Distress
--- NOTE | 2020-07-31 11:41 | Progress Note ---
Assessment and Plan Assessment and plan: Sepsis Continue IV antibiotics-vancomycin Blood culture x1/4 +ve for Staphylococcus. Repeat blood culture NTD TTE negative for endocarditis. ID recommendations appreciated She will be on vancomycin 1500mg BID until 08/22. PICC line has been placed. Needs to have home health arranged prior to DC Acute hypoxemic respiratory failure Resolved Continue oxygen supplementation Remains above 95% on RA COVID-19 pneumonia Completed remdesivir ID recommendations appreciated Trend inflammatory markers Incentive parameter Prone positioning if able Diabetes Continue insulin HTN (hypertension) Monitor blood pressure every shift, continue medical management. Obesity hypoventilation syndrome Supplemental oxygen, pulse oximetry, chest x-ray, balanced diet, increase physical activity at discharge, outpatient pulmonary follow-up for sleep study. Thyroid nodule Thyroid function test within normal limits Needs endocrinology or PCP follow-up at discharge Bradycardia EKG shows sinus bradycardia with IVCD. Likely as a result of remdesivir- Improved Monitor on telemetry for now. TSH and free T4 remain within normal limits DVT prophylaxis SCD to bilateral lower extremities while in bed, prophylactic anticoagulation. 07/23/2020. Await COVID-19 testing. D-dimer elevated at 978. Check CTA of chest to rule out PE. Elevated BG likely related to steroids. Start Lantus at bedtime. Continue sliding scale regular insulin and Accu-Cheks. Continue IV antibiotics per ID recommendations. Follow-up procalcitonin levels. 07/24/2020. Covid testing + 07/23/2020. CTA of the chest revealed patchy bilateral pneumonia and an incidental thyroid nodule. No evidence of PE. Procalcitonin level normal. However, blood cultures suggestive of bacteremia but may be a contaminant (1/4 bottles GPC). Await ID and sensitivities continue antibiotics until ID consult evaluation. Evaluate with exercise pulse oximetry. 07/25/2020. Covid testing + 07/23/2020. CTA of the chest revealed patchy bilateral pneumonia and an incidental thyroid nodule. Check TSH, T3, T4. Consider thyroid scan. No evidence of PE. Procalcitonin level normal. However, blood cultures suggestive of bacteremia but may be a contaminant (1/4 bottles GPC). Await ID and sensitivities. Continue antibiotics per ID recommendations. Continue to trend inflammatory markers. Continue dexamethasone and remdesivir. 07/26/2020. Blood culture remains negative so initial blood culture could be as a result of contaminant. Awaiting TTE. Continue dexamethasone and remdesivir. Heart rate is slightly low in the 40s to 50s. Patient is asymptomatic. TSH and free T4 within normal limits. Monitor for now. Placed on telemetry. Check EKG. 07/27/2020. BC remains NTD. Awaiting TTE. On dexamethasone and remdesivir. HR in the 40-50's. She is asymptomatic. Will continue to monitor. 07/28. TTE - negative. BC NTD. Plan for home IV antibiotics. CM to arrange. Needs a PICC line 07/29. She will be on vancomycin until 08/22. PICC line has been placed. She will have outpatient antibiotics during that duration and then follow up with ID in 2 weeks. She had a walk test and her sats remained above 94%. Home health service not available so she will be staying over the weekend. 07/30. She has no complaints today. Awaiting HH setup. Remains on antibiotics 07/31. No acute changes. Awaiting home health set up. - Patient Problems (1) COVID-19 virus infection Current Visit: Yes Status: Acute (2) Acute hypoxemic respiratory failure Current Visit: Yes Status: Acute (3) Bilateral pneumonia Current Visit: Yes Status: Acute (4) HTN (hypertension) Current Visit: No Status: Acute Qualifiers: Hypertension type: essential hypertension Qualified Code(s): I10 - Esse ntial (primary) hypertension History Interval history: Has no complaints today. No acute events noted overnight. Hospitalist Physical - Physical exam Narrative exam: VITAL SIGNS: Reviewed. GENERAL: Awake HEAD: No signs of head trauma. EYES: Pupils are equal. Extraocular motions intact. MOUTH: Oropharynx is normal. NECK: No adenopathy, no JVD. CHEST: Chest with diminished breath sounds bilaterally. No wheezes, rales, or rhonchi. CARDIAC: normal S1 and S2, without murmurs, gallops, or rubs. ABDOMEN: Soft, non tender and non distended. No rebound or guarding, and no masses palpated. Bowel Sounds normal. MUSCULOSKELETAL: No edema NEUROLOGIC EXAM: Alert and oriented x3. No focal neurologic deficits SKIN: No obvious lesions - Constitutional Vitals: Temp Pulse Resp BP Pulse Ox 97.6 F 62 20 143/69 97 07/31/20 04:07 07/31/20 04:07 07/31/20 04:07 07/31/20 04:07 07/31/20 04:07 Results - Labs CBC & Chem 7: 07/26/20 04:27 07/29/20 04:43 Labs: Laboratory Last Values WBC 12.4 K/mm3 (4.5-11.0) H 07/26/20 04:27 RBC 3.96 M/mm3 (3.65-5.03) 07/26/20 04:27 Hgb 10.1 gm/dl (10.1-14.3) 07/26/20 04:27 Hct 31.4 % (30.3-42.9) 07/26/20 04:27 MCV 79 fl (79-97) 07/26/20 04:27 MCH 26 pg (28-32) L 07/26/20 04:27 MCHC 32 % (30-34) 07/26/20 04:27 RDW 14.9 % (13.2-15.2) 07/26/20 04:27 Plt Count 362 K/mm3 (140-440) 07/26/20 04:27 Lymph % (Auto) 9.3 % (13.4-35.0) L 07/26/20 04:27 Johnson % (Auto) 5.0 % (0.0-7.3) 07/26/20 04:27 Eos % (Auto) 0.0 % (0.0-4.3) 07/26/20 04:27 Baso % (Auto) 0.1 % (0.0-1.8) 07/26/20 04:27 Lymph # (Auto) 1.2 K/mm3 (1.2-5.4) 07/26/20 04:27 Johnson # (Auto) 0.6 K/mm3 (0.0-0.8) 07/26/20 04:27 Eos # (Auto) 0.0 K/mm3 (0.0-0.4) 07/26/20 04:27 Baso # (Auto) 0.0 K/mm3 (0.0-0.1) 07/26/20 04:27 Seg Neutrophils % 85.6 % (40.0-70.0) H 07/26/20 04:27 Seg Neutrophils # 10.3 K/mm3 (1.8-7.7) H 07/26/20 04:27 D-Dimer 1015.95 ng/mlDDU (0-234) H 07/26/20 04:27 Sodium 138 mmol/L (137-145) 07/29/20 04:43 Potassium 3.9 mmol/L (3.6-5.0) 07/29/20 04:43 Chloride 99.2 mmol/L (98-107) 07/29/20 04:43 Carbon Dioxide 30 mmol/L (22-30) 07/29/20 04:43 Anion Gap 13 mmol/L 07/29/20 04:43 BUN 20 mg/dL (7-17) H 07/29/20 04:43 Creatinine 0.8 mg/dL (0.6-1.2) 07/29/20 04:43 Estimated GFR > 60 ml/min 07/29/20 04:43 BUN/Creatinine Ratio 25 % 07/29/20 04:43 Glucose 184 mg/dL (65-100) H 07/29/20 04:43 POC Glucose 199 mg/dL (70-105) H 07/31/20 11:14 Lactic Acid 1.30 mmol/L (0.7-2.0) 07/23/20 05:43 Calcium 9.0 mg/dL (8.4-10.2) 07/29/20 04:43 Ferritin 330.5 ng/mL (10.0-200.0) H 07/26/20 04:27 Total Bilirubin 0.20 mg/dL (0.1-1.2) 07/27/20 05:45 Direct Bilirubin < 0.2 mg/dL (0-0.2) 07/27/20 05:45 Indirect Bilirubin 0.0 mg/dL 07/27/20 05:45 AST 11 units/L (5-40) 07/27/20 05:45 ALT 25 units/L (7-56) 07/27/20 05:45 Alkaline Phosphatase 69 units/L (35-129) 07/27/20 05:45 Lactate Dehydrogenase 149 units/L (91-180) 07/26/20 04:27 C-Reactive Protein 3.80 mg/dL (0.00-1.30) H 07/26/20 04:27 Total Protein 5.8 g/dL (6.3-8.2) L 07/27/20 05:45 Albumin 3.2 g/dL (3.9-5) L 07/27/20 05:45 Albumin/Globulin Ratio 1.2 % 07/27/20 05:45 Procalcitonin 0.07 ng/mL (<0.15) 07/22/20 18:21 TSH 0.713 mlU/mL (0.270-4.200) 07/25/20 08:47 Free T4 1.15 ng/dL (0.76-1.46) 07/25/20 08:47 Free T3 Index 1.5 pg/mL (2.3-4.2) L 07/25/20 08:47 Vancomycin Trough 17.2 ug/mL (5.0-20.0) 07/30/20 14:45 Coronavirus (PCR) Positive (Negative) A 07/23/20 10:11 Microbiology: Microbiology 07/25/20 19:06 Peripheral/Venous Blood Culture - Final NO GROWTH AFTER 5 DAYS 07/25/20 19:06 Peripheral/Venous Blood Culture - Final NO GROWTH AFTER 5 DAYS [place]/IV: Voiding Method Toilet IV Catheter Type [Right Upper PICC Line arm] IV Catheter Type [Right INT / Saline Lock Forearm] IV Catheter Type [Right Hand] INT / Saline Lock Active Medications - Current Medications Current Medications: Generic Name Dose Route Start Last Admin Trade Name Freq PRN Reason Stop Dose Admin Acetaminophen 650 mg 07/22/20 19:12 07/28/20 22:25 Acetaminophen 325 Mg Tab PO 650 mg Q4H PRN Administration Pain MILD(1-3)/Fever >100.5/JEFFERY Albuterol 2.5 mg 07/22/20 19:12 Albuterol 2.5 Mg/3 Ml Nebu IH Q4HRT PRN Shortness Of Breath Atorvastatin Calcium 20 mg 07/28/20 22:00 07/30/20 21:51 Atorvastatin 20 Mg Tab PO 20 mg QHS GILDA Administration Dexamethasone 6 mg 07/28/20 12:00 07/31/20 09:50 Dexamethasone 4 Mg Tab PO 08/01/20 10:01 6 mg DAILY GILDA Administration Enoxaparin Sodium 40 mg 07/23/20 22:00 07/30/20 21:51 Enoxaparin 40 Mg/0.4 Ml Inj SUB-Q 40 mg QDAY@2200 GILDA Administration Protocol Famotidine 10 mg 07/22/20 22:00 07/31/20 09:51 Famotidine 10 Mg Tab PO 10 mg BID GILDA Administration Hydralazine HCl 10 mg 07/28/20 05:48 07/28/20 06:20 Hydralazine 20 Mg/1 Ml Inj IV 10 mg Q6H PRN Administration Blood Pressure Hydrochlorothiazide 25 mg 07/28/20 10:00 07/31/20 09:51 Hydrochlorothiazide 25 Mg Tab PO 25 mg QDAY GILDA Administration Hydromorphone HCl 0.25 mg 07/22/20 19:12 07/22/20 19:48 Hydromorphone 1 Mg/1 Ml Inj IV 0.25 mg Q4H PRN Administration Pain, Moderate (4-6) Vancomycin HCl 1,500 mg/ 530 mls @ 333.333 mls/hr 07/24/20 03:00 07/31/20 04:00 Sodium Chloride IV 08/22/20 16:36 333.333 mls/hr Q12H GILDA Administration Insulin Human Isoph/Insulin Regular 46 unit 07/28/20 17:00 07/30/20 17:11 Insulin Nph/Regular 70/30 Inj SUB-Q 46 unit [facility]IAB [facility] Administration Insulin Human Isoph/Insulin Regular 50 unit 07/28/20 08:30 07/31/20 09:49 Insulin Nph/Regular 70/30 Inj SUB-Q Not Given QDDIAB [facility] Insulin Human Regular 0 unit 07/22/20 22:00 07/31/20 08:04 Insulin Regular, Human 100 Unit/Ml 3ml Vial SUB-Q Not Given ACHS [facility] Protocol Ondansetron HCl 4 mg 07/22/20 19:12 Ondansetron 4 Mg/2 Ml Inj IV Q8H PRN Nausea And Vomiting Pseudoephedrine/Acetam/Chlorphenir 10 ml 07/23/20 21:37 07/30/20 21:51 Guaifenesin/Codeine 100-10mg Oral Liqd 5 Ml PO 10 ml Q4H PRN Administration Cough Sodium Chloride 10 ml 07/22/20 22:00 07/31/20 09:51 Sodium Chloride 0.9% 10 Ml Flush Syringe IV 10 ml BID GILDA Administration Sodium Chloride 10 ml 07/22/20 19:12 Sodium Chloride 0.9% 10 Ml Flush Syringe IV PRN PRN LINE FLUSH Nutrition/Malnutrition Assess - Dietary Evaluation Nutrition/Malnutrition Findings: Nutrition Notes Start: 07/23/20 13:57 Freq: Status: Active Protocol: Document 07/28/20 11:47 AB (Rec: 07/28/20 11:50 AB [id number]) Co-Sign 07/28/20 11:47 MK Nutrition Notes Initial or Follow up Brief Note Current Diagnosis Diabetes,Sepsis,Hypertension, Hyperlipidemia Other Pertinent Diagnosis Bilat pneu Current Diet Cardiac/Consistent Carb Usual Body Weight 122.7 kg Subjective/Other Information F/U for full MST assessment. Per pt, she has been eating all meals 100%. Pt hasn't had any wt loss. No signs of wasting or body fat depletion. Nutrition Intervention Revisit per MD consult or patient Sign Off request:
[2020-07-31] MEDS: guaiFENesin/CODEINE 100-10MG ORAL LIQD 5 ML PO PRN (21:40)
[2020-07-31] MEDS: ENOXAPARIN 40 MG/0.4 ML INJ SUB-Q SCH (21:40)
[2020-08-01] MEDS: VANCOMYCIN 1,500 MG in SODIUM CHLORIDE 0.9% 500 ML 500 ML IV SCH ×2 (04:09→15:01)
[2020-08-01] MEDS: INSULIN REGULAR, HUMAN 100 UNIT/ML 3ML VIAL SUB-Q SCH ×4 (08:35→21:23)
[2020-08-01] MEDS: INSULIN NPH/REGULAR 70/30 INJ SUB-Q SCH ×2 (09:32→17:52)
[2020-08-01] MEDS: FAMOTIDINE 10 MG TAB PO SCH ×2 (09:32→21:22)
[2020-08-01] MEDS: hydroCHLOROthiazide 25 MG TAB PO SCH (09:33)
[2020-08-01] MEDS: DEXAMETHASONE 4 MG TAB PO SCH (09:33)
[2020-08-01 09:53] LABS: Blood Urea Nitrogen 15 mg/dL (7-17); Calcium 8.6 mg/dL (8.4-10.2); Hemolysis Index 14
[2020-08-01 09:56] LABS: BUN/Creatinine Ratio 21
--- NOTE | 2020-08-01 12:14 | Progress Note ---
Assessment and Plan - Patient Problems (1) Bradycardia Current Visit: Yes Status: Acute Plan to address problem: Intermittent transient bradycardia noted during sleep has resolved. Recommend continued avoidance of AV deborah blocking agents, and outpatient evaluation for sleep apnea. Subjective Date of service: 08/01/20 Principal diagnosis: Bradycardia Interval history: Patient is comfortable, no new cardiac complaints. On telemetry, she is in normal sinus rhythm at 66, no further significant bradycardia has been reported. Objective Vital Signs Temp Pulse Pulse Pulse Resp Resp BP 08/01/20 04:19 97.8 F 56 L 20 138/64 07/31/20 23:00 63 58 L 20 07/31/20 22:01 97.8 F 63 20 07/31/20 22:00 18 BP Pulse Ox 08/01/20 04:19 99 07/31/20 23:00 98 07/31/20 22:01 136/72 98 07/31/20 22:00 - Physical Examination Narrative exam: Full physical exam is deferred due to COVID-19 infection status. General: No Apparent Distress - Labs and Meds Comprehensive Metabolic Panel 08/01/20 Range/Units 08:46 Sodium 137 (137-145) mmol/L Potassium 3.9 (3.6-5.0) mmol/L Chloride 100.2 (98-107) mmol/L Carbon Dioxide 32 H (22-30) mmol/L BUN 15 (7-17) mg/dL Creatinine 0.7 (0.6-1.2) mg/dL Glucose 198 H (65-100) mg/dL Calcium 8.6 (8.4-10.2) mg/dL
[2020-08-01] MEDS: ENOXAPARIN 40 MG/0.4 ML INJ SUB-Q SCH (21:22)
[2020-08-01] MEDS: guaiFENesin/CODEINE 100-10MG ORAL LIQD 5 ML PO PRN (21:22)
[2020-08-02] MEDS: VANCOMYCIN 1,500 MG in SODIUM CHLORIDE 0.9% 500 ML 500 ML IV SCH (03:54)
[2020-08-02 04:37] VITALS: BP 155/75
[2020-08-02] MEDS: INSULIN REGULAR, HUMAN 100 UNIT/ML 3ML VIAL SUB-Q SCH (07:40)
--- NOTE | 2020-08-02 08:49 | Progress Note ---
Assessment and Plan Sinus bradycardia, transient currently she is sinus rhythm on telemetry TSH is normal at 0.71. COVID 19 viral pneumonia Staph aureus bacteremia HTN Diabetes Obesity Echocardiogram ordered shows a mild to moderate LV dysfunction, EF 40-45%, but no evident valvular vegetations. Conservative cardiac management. Subjective Date of service: 08/02/20 Principal diagnosis: Bradycardia Interval history: Patient appears comfortable. No cardiac events reported. Currently, she is sinus rhythm, rate 71 on telemetry monitoring. Objective Vital Signs Temp Pulse Resp BP Pulse Ox 08/02/20 03:34 98.7 F 16 155/75 08/01/20 21:59 18 08/01/20 21:10 98.4 F 67 16 142/81 98 08/01/20 17:13 98.4 F 70 20 146/84 97 08/01/20 11:29 99.0 F 68 20 150/70 95 - Physical Examination Narrative exam: Deferred due to isolation protocol. General: No Apparent Distress Cardiac: Positive: Reg Rate and Rhythm - Labs and Meds Comprehensive Metabolic Panel 08/01/20 Range/Units 08:46 Sodium 137 (137-145) mmol/L Potassium 3.9 (3.6-5.0) mmol/L Chloride 100.2 (98-107) mmol/L Carbon Dioxide 32 H (22-30) mmol/L BUN 15 (7-17) mg/dL Creatinine 0.7 (0.6-1.2) mg/dL Glucose 198 H (65-100) mg/dL Calcium 8.6 (8.4-10.2) mg/dL
[2020-08-02] MEDS: hydroCHLOROthiazide 25 MG TAB PO SCH (09:28)
[2020-08-02] MEDS: FAMOTIDINE 10 MG TAB PO SCH (09:28)
[2020-08-02] MEDS: INSULIN NPH/REGULAR 70/30 INJ SUB-Q SCH (09:29)
--- NOTE | 2020-08-02 09:41 | Discharge Summary ---
Providers - Providers Date of Admission: 07/22/20 20:48 Date of discharge: 08/02/20 Attending physician: JU MILLER 07/22/20 19:12 Consult to Physician [CONS] Routine Comment: Consulting Provider: KIKO SOLOMON Physician Instructions: Reason For Exam: pui 07/27/20 11:01 Consult to Physician [CONS] Routine Comment: Consulting Provider: RAMYA ELENA Physician Instructions: Reason For Exam: Bradycardia 07/28/20 13:25 Consult to Case Management [CONS] Routine Services Needed at Discharge: Home Health Services Notified:: CM Additional Physician Instructions: Travis Auguste MD [facility], [place], [facility]ated [facility] (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 Patient states that she has "not been feeling well" over the past 1 week with persistently worsening symptoms over the same timeframe. Patient states that she has experienced shortness of breath, fever, malaise, body aches, generalized weakness, decreased exercise tolerance, loss of sense of smell, loss of sense of taste. Patient acknowledges fever to 102.5 F. Patient transported to [facility] via private vehicle for further care and evaluation of the aforementioned symptoms. The patient was seen and evaluated in the emergency department. All lab and imaging studies reviewed. Patient underwent a chest x-ray which revealed pneumonia which is complicated by Sepsis. The patient was found to have a pulse oximetry of 86% on room air with exertion which is consistent with acute hypoxemic respiratory failure. The patient was placed on supplemental oxygen in the emergency d epartment with mild improvement in symptoms. Patient admitted to medical floor and initiated on sepsis and pneumonia protocol. Patient also initiated on coronavirus protocol. Patient denies chills, palpitations, skin rash, recent ill contacts, trauma. Prior admission on 03/28/2017 reviewed.. No medication listed for reconciliation at the time of my admission Hospital course 07/23/2020. Await COVID-19 testing. D-dimer elevated at 978. Check CTA of chest to rule out PE. Elevated BG likely related to steroids. Start Lantus at bedtime. Continue sliding scale regular insulin and Accu-Cheks. Continue IV antibiotics per ID recommendations. Follow-up procalcitonin levels. 07/24/2020. Covid testing + 07/23/2020. CTA of the chest revealed patchy bilateral pneumonia and an incidental thyroid nodule. No evidence of PE. Procalcitonin level normal. However, blood cultures suggestive of bacteremia but may be a contaminant (1/4 bottles GPC). Await ID and sensitivities c ontinue antibiotics until ID consult evaluation. Evaluate with exercise pulse oximetry. 07/25/2020. Covid testing + 07/23/2020. CTA of the chest revealed patchy bilateral pneumonia and an incidental thyroid nodule. Check TSH, T3, T4. Consider thyroid scan. No evidence of PE. Procalcitonin level normal. However, blood cultures suggestive of bacteremia but may be a contaminant (1/4 bottles GPC). Await ID and sensitivities. Continue antibiotics per ID recommendations. Continue to trend inflammatory markers. Continue dexamethasone and remdesivir. 07/26/2020. Blood culture remains negative so initial blood culture could be as a result of contaminant. Awaiting TTE. Continue dexamethasone and remdesivir. Heart rate is slightly low in the 40s to 50s. Patient is asymptomatic. TSH a nd free T4 within normal limits. Monitor for now. Placed on telemetry. Check EKG. 07/27/2020. BC remains NTD. Awaiting TTE. On dexamethasone and remdesivir. HR in the 40-50's. She is asymptomatic. Will continue to monitor. 07/28. TTE - negative. BC NTD. Plan for home IV antibiotics. CM to arrange. Needs a PICC line 07/29. She will be on vancomycin until 08/22. PICC line has been placed. She will have outpatient antibiotics during that duration and then follow up with ID in 2 weeks. She had a walk test and her sats remained above 94%. Home health service not available so she will be staying over the weekend. 07/30. She has no complaints today. Awaiting setup. Remains on antibiotics 07/31. No acute changes. Awaiting home health set up. 08/01. Home health has been set up. Patient will be discharged home to continue antibiotics (last dose on 08/22/2020). She agrees with plan Disposition: DC-01 TO HOME OR SELFCARE Time spent for discharge: 40 minutes - Discharge Diagnoses (1) COVID-19 virus infection Status: Acute (2) Acute hypoxemic respiratory failure Status: Acute (3) Bilateral pneumonia Status: Acute (4) HTN (hypertension) Disposition: DC-01 TO HOME OR SELFCARE Core Measure Documentation - Palliative Care Palliative Care/ Comfort Measures: Not Applicable - Core Measures Any of the following diagnoses?: none Exam - Constitutional Vitals: Temp Pulse Resp BP Pulse Ox 98.7 F 67 16 155/75 98 08/02/20 03:34 08/01/20 21:10 08/02/20 03:34 08/02/20 03:34 08/01/20 21:10 General appearance: Present: no acute distress, well-nourished - EENT Eyes: Present: PERRL ENT: hearing intact, clear oral mucosa - Neck Neck: Present: supple, normal ROM - Respiratory Respiratory effort: normal Respiratory: bilateral: CTA - Cardiovascular Heart Sounds: Present: S1 & S2. Absent: rub, click - Extremities Extremities: pulses symmetrical, No edema Peripheral Pulses: within normal limits - Abdominal General gastrointestinal: Present: soft, non-tender, non-distended, normal bowel sounds Female genitourinary: Present: normal - Integumentary Integumentary: Present: clear, warm, dry - Musculoskeletal Musculoskeletal: gait normal, strength equal bilaterally - Psychiatric Psychiatric: appropriate mood/affect, intact judgment & insight - Neurologic Neurologic: CNII-XII intact, moves all extremities Plan Activity: advance as tolerated Weight Bearing Status: Weight Bear as Tolerated Additional Instructions: Continue vancomycin as ordered until 08/22/2020. Follow- up with infectious disease team in the clinic in 2 weeks. Follow-up with your primary medical doctor for evaluation of small nodule in the thyroid in 2 to 3 weeks Follow up with: CONSUELO AUGUSTE MD [Staff Physician] - 7 Days PRIMARY CARE, [Primary Care Provider] - 3-5 Days Prescriptions: dexAMETHasone [Dexamethasone] 6 mg PO DAILY #4 tablet
== END 2020-08-02 10:15 | disposition home or self-care (01) | DRG 871 ==
LOC: ED 15:37 → UNDOADMIN 20:43 → CC1 20:43 → 3A 20:48
PROVIDERS: ADMIT Internal Medicine; ATTEND Hospitalist
PROC: XW033E5 Introduction of Remdesivir Anti-infective into Peripheral Vein, Percutaneous Approach, New Technology Group 5 (ICD-10-PCS; principal; 2020-07-24)
DX: A41.9 Sepsis, unspecified organism (principal); U07.1 COVID-19; J18.9 Pneumonia, unspecified organism; J96.01 Acute respiratory failure with hypoxia; E66.2 Morbid (severe) obesity with alveolar hypoventilation; I10 Essential (primary) hypertension; J45.909 Unspecified asthma, uncomplicated; K21.9 Gastro-esophageal reflux disease without esophagitis; G43.909 Migraine, unspecified, not intractable, without status migrainosus; M19.90 Unspecified osteoarthritis, unspecified site; E78.00 Pure hypercholesterolemia, unspecified; E11.9 Type 2 diabetes mellitus without complications; E78.5 Hyperlipidemia, unspecified; Z79.899 Other long term (current) drug therapy; Z79.891 Long term (current) use of opiate analgesic; Z68.36 Body mass index [BMI] 36.0-36.9, adult; Z71.3 Dietary counseling and surveillance; Z79.01 Long term (current) use of anticoagulants; Z79.4 Long term (current) use of insulin; Z98.51 Tubal ligation status; Z83.3 Family history of diabetes mellitus; Z82.49 Family history of ischemic heart disease and other diseases of the circulatory system
CPT/HCPCS: 36415; 71046; 71275; 80048; 80053; 80076; 80202; 82140; 82728; 82947; 82962; 83615; 84145; 84439; 84443; 84481; 85025; 85379; 86140; 87040; 87076; 93005; 93306; 93970; 94760; 96361; 96365; 96366; 96367; 96375; G0378; A9270-GY; J0360; J0456; J0696; J1170; J1644; J1650; J1815; J2270; J2405; J2920; J3370; J7030; J7040; J7050; J8540; Q9967; U0003

== ENCOUNTER 2020-08-08 11:28 | Emergency (ER) | payer SELFPAY ==
--- NOTE | 2020-08-08 12:18 | Event Note ---
ED Screening Note ED Screening Note: pt presents for JEFFERY, back pain, abd pain, and CP recently admitted for COVID 19 +sob states she feels like her symptoms are not improving no cough no v/d normal BM last night PMHx DM, HTN, HLD no allergies to meds This initial assessment/diagnostic orders/clinical plan/treatment(s) is/are subject to change based on patients health status, clinical progression and re- assessment by fellow clinical providers in the ED. Further treatment and workup at subsequent clinical providers discretion. Patient/guardian urged not to elope from the ED as their condition may be serious if not clinically assessed and managed. Initial orders include: labs, UA, CXR
[2020-08-08 12:53] LABS: Basophils # (Auto) 0.1 K/mm3 (0.0-0.1); Basophils % (Auto) 1.1 % (0.0-1.8); Eosinophils # (Auto) 0.2 K/mm3 (0.0-0.4); Eosinophils % (Auto) 2.9 % (0.0-4.3); Hematocrit 33.9 % (30.3-42.9); Hemoglobin 11.5 gm/dl (10.1-14.3); Lymphocytes # (Auto) 1.4 K/mm3 (1.2-5.4); Lymphocytes % (Auto) 20.5 % (13.4-35.0); Mean Corpuscular HGB Conc 34 % (30-34); Mean Corpuscular Volume 78 fl (79-97); Monocytes # (Auto) 0.8 K/mm3 (0.0-0.8); Monocytes % (Auto) 11.8 % (0.0-7.3); Platelet Count 277 K/mm3 (140-440); Red Blood Count 4.33 M/mm3 (3.65-5.03); Red Cell Distribution Width 16.2 % (13.2-15.2)
[2020-08-08 13:08] LABS: Alanine Aminotransferase 27 units/L (7-56); Albumin 3.7 g/dL (3.9-5); BUN/Creatinine Ratio 19; Blood Urea Nitrogen 15 mg/dL (7-17); Calcium 9.4 mg/dL (8.4-10.2); Hemolysis Index 4
--- NOTE | 2020-08-08 13:54 | XRay Report ---
CHEST 2 VIEWS INDICATION / CLINICAL INFORMATION: cough, SOB. COMPARISON: 07/22/2020 FINDINGS: SUPPORT DEVICES: None. HEART / MEDIASTINUM: No significant abnormality. LUNGS / PLEURA: No significant pulmonary or pleural abnormality. No pneumothorax. ADDITIONAL FINDINGS: Right PICC line has tip in SVC IMPRESSION: 1. No acute findings. Signer Name: Minh Anne MD Signed: 08/08/2020 1:49 PM Workstation Name: [id number]
[2020-08-08 14:32] LABS: Bilirubin,Urine NEG (Negative); Blood,Urine NEG (Negative); Color,Urine Yellow (Yellow); Mucus,Urine FEW /HPF; Protein,Urine <15 mg/dL mg/dL (Negative); Urobilinogen,Urine < 2.0 mg/dL (<2.0)
[2020-08-08] MEDS ORDERED: MORPHINE 4 MG/1 ML INJ IV ONE (17:42)
[2020-08-08] MEDS ORDERED: ONDANSETRON 4 MG/2 ML INJ IV ONE (17:42)
--- NOTE | 2020-08-08 17:42 | Emergency Department Report ---
ED General Adult HPI - General Chief complaint: Dyspnea/Respdistress Stated complaint: CHEST PAIN/ABD PAIN Time Seen by Provider: 08/08/20 12:15 Source: patient Mode of arrival: Ambulatory Limitations: No Limitations - History of Present Illness Initial comments: The patient presents to the emergency department with a chief complaint of chest pain and shortness of breath. Patient states he was discharged last week from the hospital due to diagnosis of COVID-19 pneumonia. Patient states that the chest pain is worse with deep breaths. She denies any radiation of chest pain. Patient does endorse shortness of breath. -: Gradual Location: chest Radiation: non-radiation Severity scale (0 -10): 8 Quality: sharp Consistency: constant Improves with: rest Worsens with: movement Associated Symptoms: denies other symptoms Treatments Prior to Arrival: none - Related Data Home Medications Medication Instructions Recorded Confirmed Last Taken Insulin NPH/Regular [NovoLIN 70/30] 35 unit SQ QHS 03/28/17 07/22/20 03/04/19 09:00 metFORMIN [Glucophage] 1,000 mg PO BID 03/28/17 07/22/20 03/04/19 09:00 Albuterol Sulfate [Proventil Hfa] 2 puff IH PRN PRN 02/24/19 07/22/20 Unknown AtorvaSTATin [Lipitor] 20 mg PO QHS 02/24/19 07/22/20 03/04/19 21:00 Insulin NPH Hum/Reg Insulin Hm 40 unit SQ QAM 02/24/19 07/22/20 03/04/19 09:00 [Relion Novolin 70-30 Vial] glipiZIDE [Glucotrol] 10 mg PO BID 02/24/19 07/22/20 03/04/19 18:00 hydroCHLOROthiazide [HCTZ] 25 mg PO QDAY 02/24/19 07/22/20 03/04/19 09:00 Previous Rx's Medication Instructions Recorded Last Taken Type Oxycodone HCl/Acetaminophen 1 each PO Q6HR PRN #30 tablet 03/09/19 Unknown Rx [Percocet 7.5/325 mg] dexAMETHasone [Dexamethasone] 6 mg PO DAILY #4 tablet 07/29/20 Unknown Rx HYDROcodone/APAP 10-325 [Grandin 1 each PO Q6HR PRN #24 tablet 08/08/20 Unknown Rx 10/325] Ondansetron [Zofran Odt] 4 mg PO Q4HR PRN #20 tab.rapdis 08/08/20 Unknown Rx Allergies Allergy/AdvReac Type Severity Reaction Status Date / Time No Known Allergies Allergy Verified 05/05/15 11:11 ED Review of Systems ROS: Stated complaint: CHEST PAIN/ABD PAIN Other details as noted in HPI Comment: All other systems reviewed and negative Constitutional: denies: chills, fever Eyes: denies: eye pain, eye discharge, vision change ENT: denies: ear pain, throat pain Respiratory: denies: cough, shortness of breath, wheezing Cardiovascular: chest pain, dyspnea on exertion. denies: palpitations Endocrine: no symptoms reported Gastrointestinal: denies: abdominal pain, nausea, diarrhea Genitourinary: denies: urgency, dysuria, discharge Musculoskeletal: denies: back pain, joint swelling, arthralgia Skin: denies: rash, lesions Neurological: denies: headache, weakness, paresthesias Psychiatric: denies: anxiety, depression Hematological/Lymphatic: denies: easy bleeding, easy bruising ED Past Medical Hx - Past Medical History Previous Medical History?: Yes Hx Hypertension: Yes Hx Heart Attack/AMI: No Hx Diabetes: Yes Hx Deep Vein Thrombosis: (unknown) Hx GERD: Yes (NO REGULAR MEDS) Hx Liver Disease: No Hx Renal Disease: No Hx Arthritis: Yes Hx Headaches / Migraines: Yes Hx Asthma: Yes (INHALER PRN) Hx HIV: No Additional medical history: HIGH CHOLESTEROL - Surgical History Past Surgical History?: Yes Hx Pacemaker: No Hx Internal Defibrillator: No Additional Surgical History: TUBAL LIGATION. POLYPS FROM THROAT REMOVED - Social History Smoking Status: Never Smoker - Medications Home Medications: Home Medications Medication Instructions Recorded Confirmed Last Taken Type Insulin NPH/Regular [NovoLIN 70/30] 35 unit SQ QHS 03/28/17 07/22/20 03/04/19 09:00 History metFORMIN [Glucophage] 1,000 mg PO BID 03/28/17 07/22/20 03/04/19 09:00 History Albuterol Sulfate [Proventil Hfa] 2 puff IH PRN PRN 02/24/19 07/22/20 Unknown History AtorvaSTATin [Lipitor] 20 mg PO QHS 02/24/19 07/22/20 03/04/19 21:00 History Insulin NPH Hum/Reg Insulin Hm 40 unit SQ QAM 02/24/19 07/22/20 03/04/19 09:00 History [Relion Novolin 70-30 Vial] glipiZIDE [Glucotrol] 10 mg PO BID 02/24/19 07/22/20 03/04/19 18:00 History hydroCHLOROthiazide [HCTZ] 25 mg PO QDAY 02/24/19 07/22/20 03/04/19 09:00 History Oxycodone HCl/Acetaminophen 1 each PO Q6HR PRN #30 tablet 03/09/19 07/22/20 Unknown Rx [Percocet 7.5/325 mg] dexAMETHasone [Dexamethasone] 6 mg PO DAILY #4 tablet 07/29/20 Unknown Rx HYDROcodone/APAP 10-325 [Grandin 1 each PO Q6HR PRN #24 tablet 08/08/20 Unknown Rx 10/325] Ondansetron [Zofran Odt] 4 mg PO Q4HR PRN #20 tab.rapdis 08/08/20 Unknown Rx ED Physical Exam - General Limitations: No Limitations General appearance: alert, in no apparent distress - Head Head exam: Present: atraumatic, normocephalic - Eye Eye exam: Present: normal appearance, PERRL, EOMI - ENT ENT exam: Present: mucous membranes moist - Neck Neck exam: Present: normal inspection - Respiratory Respiratory exam: Present: normal lung sounds bilaterally. Absent: respiratory distress - Cardiovascular Cardiovascular Exam: Present: regular rate, normal rhythm. Absent: systolic murmur, diastolic murmur, rubs, gallop - GI/Abdominal GI/Abdominal exam: Present: soft, normal bowel sounds. Absent: distended, tenderness - Extremities Exam Extremities exam: Present: normal inspection - Back Exam Back exam: Present: normal inspection - Neurological Exam Neurological exam: Present: alert, oriented X3, CN II-XII intact. Absent: motor sensory deficit - Psychiatric Psychiatric exam: Present: normal affect, normal mood - Skin Skin exam: Present: warm, dry, intact, normal color. Absent: rash ED Course Vital Signs 08/08/20 08/08/20 11:39 18:20 Temperature 97.9 F Pulse Rate 81 72 Respiratory 20 16 Rate Blood Pressure 184/95 146/75 [Right] O2 Sat by Pulse 99 97 Oximetry ED Medical Decision Making - Lab Data Result diagrams: 08/08/20 12:34 08/08/20 12:34 Lab Results 08/08/20 08/08/20 08/08/20 Range/Units 12:34 12:34 14:09 WBC 6.6 (4.5-11.0) K/mm3 RBC 4.33 (3.65-5.03) M/mm3 Hgb 11.5 (10.1-14.3) gm/dl Hct 33.9 (30.3-42.9) % MCV 78 L (79-97) fl MCH 27 L (28-32) pg MCHC 34 (30-34) % RDW 16.2 H (13.2-15.2) % Plt Count 277 (140-440) K/mm3 Lymph % (Auto) 20.5 (13.4-35.0) % [place] % (Auto) 11.8 H (0.0-7.3) % Eos % (Auto) 2.9 (0.0-4.3) % Baso % (Auto) 1.1 (0.0-1.8) % Lymph # (Auto) 1.4 (1.2-5.4) K/mm3 [place] # (Auto) 0.8 (0.0-0.8) K/mm3 Eos # (Auto) 0.2 (0.0-0.4) K/mm3 Baso # (Auto) 0.1 (0.0-0.1) K/mm3 Seg Neutrophils % 63.7 (40.0-70.0) % Seg Neutrophils # 4.2 (1.8-7.7) K/mm3 Sodium 136 L (137-145) mmol/L Potassium 4.0 (3.6-5.0) mmol/L Chloride 98.0 (98-107) mmol/L Carbon Dioxide 31 H (22-30) mmol/L Anion Gap 11 mmol/L BUN 15 (7-17) mg/dL Creatinine 0.8 (0.6-1.2) mg/dL Estimated GFR > 60 ml/min BUN/Creatinine Ratio 19 % Glucose 163 H (65-100) mg/dL Calcium 9.4 (8.4-10.2) mg/dL Total Bilirubin 0.50 (0.1-1.2) mg/dL AST 8 (5-40) units/L ALT 27 (7-56) units/L Alkaline Phosphatase 93 (35-129) units/L Troponin T < 0.010 (0.00-0.029) ng/mL Total Protein 6.5 (6.3-8.2) g/dL Albumin 3.7 L (3.9-5) g/dL Albumin/Globulin Ratio 1.3 % Lipase 102 H (13-60) units/L Urine Color Yellow (Yellow) Urine Turbidity Clear (Clear) Urine pH 5.0 (5.0-7.0) Ur Specific [place] 1.012 (1.003-1.030) Urine Protein <15 mg/dl (Negative) mg/dL Urine Glucose (UA) 150 (Negative) mg/dL Urine Ketones Neg (Negative) mg/dL Urine Blood Neg (Negative) Urine Nitrite Neg (Negative) Urine Bilirubin Neg (Negative) Urine Urobilinogen < 2.0 (<2.0) mg/dL Ur Leukocyte Esterase Neg (Negative) Urine WBC (Auto) 1.0 (0.0-6.0) /HPF Urine RBC (Auto) 1.0 (0.0-6.0) /HPF U Epithel Cells (Auto) 2.0 (0-13.0) /HPF Urine Mucus Few /HPF 08/08/20 Range/Units 17:02 WBC (4.5-11.0) K/mm3 RBC (3.65-5.03) M/mm3 Hgb (10.1-14.3) gm/dl Hct (30.3-42.9) % MCV (79-97) fl MCH (28-32) pg MCHC (30-34) % RDW (13.2-15.2) % Plt Count (140-440) K/mm3 Lymph % (Auto) (13.4-35.0) % [place] % (Auto) (0.0-7.3) % Eos % (Auto) (0.0-4.3) % Baso % (Auto) (0.0-1.8) % Lymph # (Auto) (1.2-5.4) K/mm3 [place] # (Auto) (0.0-0.8) K/mm3 Eos # (Auto) (0.0-0.4) K/mm3 Baso # (Auto) (0.0-0.1) K/mm3 Seg Neutrophils % (40.0-70.0) % Seg Neutrophils # (1.8-7.7) K/mm3 Sodium (137-145) mmol/L Potassium (3.6-5.0) mmol/L Chloride (98-107) mmol/L Carbon Dioxide (22-30) mmol/L Anion Gap mmol/L BUN (7-17) mg/dL Creatinine (0.6-1.2) mg/dL Estimated GFR ml/min BUN/Creatinine Ratio % Glucose (65-100) mg/dL Calcium (8.4-10.2) mg/dL Total Bilirubin (0.1-1.2) mg/dL AST (5-40) units/L ALT (7-56) units/L Alkaline Phosphatase (35-129) units/L Troponin T < 0.010 (0.00-0.029) ng/mL Total Protein (6.3-8.2) g/dL Albumin (3.9-5) g/dL Albumin/Globulin Ratio % Lipase (13-60) units/L Urine Color (Yellow) Urine Turbidity (Clear) Urine pH (5.0-7.0) Ur Specific [place] (1.003-1.030) Urine Protein (Negative) mg/dL Urine Glucose (UA) (Negative) mg/dL Urine Ketones (Negative) mg/dL Urine Blood (Negative) Urine Nitrite (Negative) Urine Bilirubin (Negative) Urine Urobilinogen (<2.0) mg/dL Ur Leukocyte Esterase (Negative) Urine WBC (Auto) (0.0-6.0) /HPF Urine RBC (Auto) (0.0-6.0) /HPF U Epithel Cells (Auto) (0-13.0) /HPF Urine Mucus /HPF - EKG Data -: EKG Interpreted by [facility] EKG shows normal: sinus rhythm Rate: normal - Radiology Data Radiology results: report reviewed - Medical Decision Making Discussed results with patient Critical care attestation.: If time is entered above; I have spent that time in minutes in the direct care of this critically ill patient, excluding procedure time. ED Disposition Clinical Impression: Nonspecific chest pain, Pleurisy Disposition: TO HOME OR SELFCARE Is pt being admited?: No Does the pt Need Aspirin: No Condition: Stable Instructions: Chest Pain (ED), Nonspecific Chest Pain, Adult, Pleurisy Additional Instructions: return if worse Referrals: PRIMARY CARE, [Primary Care Provider] - 3-5 Days MIYA DAVALOS MD [Staff Physician] - 3-5 Days GIGI JACOBS MD [Staff Physician] - 3-5 Days Time of Disposition: 19:32
--- NOTE | 2020-08-08 18:15 | Cat Scan Report ---
CT angio chest INDICATION / CLINICAL INFORMATION: chest pain with sob. TECHNIQUE: Axial CT images were obtained through the chest after injection of IV contrast. 3 plane MIP and/or 3D reconstructions were produced. All CT scans at this location are performed using CT dose reduction f or ALARA by means of automated exposure control. COMPARISON: None available. FINDINGS: PULMONARY ARTERIES: No pulmonary emboli. HEART: No significant abnormality. MEDIASTINUM / BEULAH: No significant abnormality. LUNGS: Very mild persistent bilateral airspace disease. Overall, there is significant interval improv ement in the ground glass opacities demonstrating peripheral subpleural predilection. No pleural effu chantel. No pneumothorax. ADDITIONAL FINDINGS: Diffuse enlargement of the thyroid gland with multiple nodules. There is a right lower pole thyroid nodule measuring 2.2 cm and a 5 cm left lower pole nodule. Right PICC terminates in the SVC.. UPPER ABDOMEN: No acute findings. SKELETAL STRUCTURES: No significant osseous abnormality. IMPRESSION: 1. No CT evidence for pulmonary embolism. 2. Significant improved and nearly resolved bilateral airspace disease which demonstrated typical fea tures seen in covid pneumonia. 3 Persistent diffuse enlargement of thyroid gland with multiple nodules which meet criteria for dedic ated ultrasound. Recommend dedicated ultrasound thyroid is not already performed previously. - INCIDENTAL THYROID NODULE RECOMMENDATION RECOMMENDATION: Dedicated thyroid ultrasound. Nonpalpable nodules detected on US or other anatomic imaging studies are termed incidentally discover ed nodules or incidentalomas. Nonpalpable nodules have the same risk of malignancy as palpable nodule s with the same size. Generally, only nodules >1 cm should be evaluated, since they have a greater po tential to be clinically significant cancers. (MATHEW, 2009). Follow up for incidental thyroid nodules <1 cm is not recommended. Diagnostic thyroid ultrasound is recommended only if the patient meets the following criteria: (1) < 35 years of age with normal life expectancy and nodule >= 1 cm. (2) >= 35 years of age with normal life expectancy and nodule >= 1.5 cm. ACR Ultrasound for incidental thyroid nodules: [email or web address] Signer Name: Werner Calderon MD Signed: 08/08/2020 6:10 PM Workstation Name: [email or web address]
[2020-08-08 18:23] VITALS: BP 146/75
== END 2020-08-08 19:55 | disposition home or self-care (01) ==
LOC: ED 11:28
DX: R09.1 Pleurisy (principal); I10 Essential (primary) hypertension; E11.9 Type 2 diabetes mellitus without complications; M19.90 Unspecified osteoarthritis, unspecified site; K21.9 Gastro-esophageal reflux disease without esophagitis; Z98.51 Tubal ligation status; Z79.4 Long term (current) use of insulin; Z79.899 Other long term (current) drug therapy
CPT/HCPCS: 36415; 71046; 71275; 80053; 81001; 83690; 84484; 85025; 93005; 96374; 96375; 99284; J2270; J2405; Q9967

== ENCOUNTER 2020-08-11 09:03 | Outpatient (CLI) | payer SELFPAY ==
[2020-08-11 09:34] LABS: Basophils % (Auto) 0.7 % (0.0-1.8); Eosinophils # (Auto) 0.1 K/mm3 (0.0-0.4); Eosinophils % (Auto) 3.1 % (0.0-4.3); Hematocrit 32.5 % (30.3-42.9); Hemoglobin 10.7 gm/dl (10.1-14.3); Lymphocytes # (Auto) 0.8 K/mm3 (1.2-5.4); Lymphocytes % (Auto) 17.1 % (13.4-35.0); Mean Corpuscular HGB Conc 33 % (30-34); Mean Corpuscular Volume 81 fl (79-97); Monocytes # (Auto) 0.5 K/mm3 (0.0-0.8); Platelet Count 240 K/mm3 (140-440); Red Blood Count 4.03 M/mm3 (3.65-5.03)
[2020-08-11 09:56] LABS: Alanine Aminotransferase 33 units/L (7-56); Blood Urea Nitrogen 17 mg/dL (7-17)
== END 2020-08-11 09:04 | disposition home or self-care (01) ==
LOC: LAB 09:03
DX: I10 Essential (primary) hypertension (principal); E11.9 Type 2 diabetes mellitus without complications
CPT/HCPCS: 36415; 80202; 82565; 84450; 84460; 84520; 85025

== ENCOUNTER 2020-08-15 09:12 | Outpatient (CLI) | payer SELFPAY ==
[2020-08-15 09:39] LABS: Basophils % (Auto) 0.4 % (0.0-1.8); Eosinophils # (Auto) 0.2 K/mm3 (0.0-0.4); Eosinophils % (Auto) 4.4 % (0.0-4.3); Hemoglobin 10.8 gm/dl (10.1-14.3); Lymphocytes # (Auto) 0.8 K/mm3 (1.2-5.4); Mean Corpuscular HGB Conc 34 % (30-34); Mean Corpuscular Volume 80 fl (79-97); Monocytes # (Auto) 0.5 K/mm3 (0.0-0.8); Platelet Count 250 K/mm3 (140-440); Red Blood Count 4.02 M/mm3 (3.65-5.03); Red Cell Distribution Width 15.7 % (13.2-15.2)
[2020-08-15 11:14] LABS: Alanine Aminotransferase 24 units/L (7-56); Blood Urea Nitrogen 20 mg/dL (7-17)
== END 2020-08-15 09:13 | disposition home or self-care (01) ==
LOC: LAB 09:12
PROVIDERS: ATTEND Internal Medicine Infectious Disease
DX: R78.81 Bacteremia (principal)
CPT/HCPCS: 36415; 80202; 82565; 84450; 84460; 84520; 85025

== ENCOUNTER 2020-08-22 09:17 | Outpatient (CLI) | payer SELFPAY ==
[2020-08-22 09:47] LABS: Hemoglobin 9.4 gm/dl (10.1-14.3)
[2020-08-22 10:04] LABS: Basophils % (Auto) 0.3 % (0.0-1.8); Eosinophils # (Auto) 0.1 K/mm3 (0.0-0.4); Eosinophils % (Auto) 1.8 % (0.0-4.3); Lymphocytes # (Auto) 0.7 K/mm3 (1.2-5.4); Lymphocytes % (Auto) 13.9 % (13.4-35.0); Mean Corpuscular HGB Conc 34 % (30-34); Mean Corpuscular Volume 79 fl (79-97); Monocytes # (Auto) 0.7 K/mm3 (0.0-0.8); Monocytes % (Auto) 13.1 % (0.0-7.3); Platelet Count 358 K/mm3 (140-440); Red Blood Count 3.57 M/mm3 (3.65-5.03); Red Cell Distribution Width 15.3 % (13.2-15.2)
== END 2020-08-22 09:18 | disposition home or self-care (01) ==
LOC: LAB 09:17
PROVIDERS: ATTEND Internal Medicine Infectious Disease
DX: R78.81 Bacteremia (principal)
CPT/HCPCS: 36415; 80202; 82565; 84450; 84460; 84520; 85025

== ENCOUNTER 2021-10-11 19:09 | Emergency (ER) | payer OTHER ==
[2021-10-11 19:54] VITALS: BP 173/89
[2021-10-11] MEDS ORDERED: amLODIPine 5 MG TAB PO ONE (23:33)
[2021-10-11] MEDS ORDERED: ACETAMINOPHEN 500 MG TAB PO ONE (23:34)
--- NOTE | 2021-10-11 23:54 | Emergency Department Report ---
ED General Adult HPI - General Chief complaint: High BP Stated complaint: BLOOD PRESSURE HIGH Time Seen by Provider: 10/11/21 23:32 Source: patient Mode of arrival: Ambulatory Limitations: No Limitations - History of Present Illness Initial comments: Patient 61-year-old female with history of diabetes type 2, hypertension, and arthralgia who presents for hypertension. States her BP at home was 189/109. So she came to ED. Patient has secondary complaint complaint malaise and hyperglycemia. States sugar was 164 this morning when she woke up. Patient arrived to ED via POV and family member, patient is alert oriented x3 amatory steady gait in no acute distress. No chest pain, shortness of breath there is no lightheadedness no nausea or vomiting at this time. There is no fever or chills. Patient advises intermittent adherence to medication regimen. Severity scale (0 -10): 7 - Related Data Home Medications Medication Instructions Recorded Confirmed Last Taken Insulin NPH/Regular [NovoLIN 70/30] 35 unit SQ QHS 03/28/17 07/22/20 03/04/19 09:00 metFORMIN [Glucophage] 1,000 mg PO BID 03/28/17 07/22/20 03/04/19 09:00 Albuterol Sulfate [Proventil Hfa] 2 puff IH PRN PRN 02/24/19 07/22/20 Unknown AtorvaSTATin [Lipitor] 20 mg PO QHS 02/24/19 07/22/20 03/04/19 21:00 Insulin NPH Hum/Reg Insulin Hm 40 unit SQ QAM 02/24/19 07/22/20 03/04/19 09:00 [Relion Novolin 70-30 Vial] glipiZIDE [Glucotrol] 10 mg PO BID 02/24/19 07/22/20 03/04/19 18:00 hydroCHLOROthiazide [HCTZ] 25 mg PO QDAY 02/24/19 07/22/20 03/04/19 09:00 Previous Rx's Medication Instructions Recorded Last Taken Type Oxycodone HCl/Acetaminophen 1 each PO Q6HR PRN #30 tablet 03/09/19 Unknown Rx [Percocet 7.5/325 mg] dexAMETHasone [Dexamethasone] 6 mg PO DAILY #4 tablet 07/29/20 Unknown Rx HYDROcodone/APAP 10-325 [Vici 1 each PO Q6HR PRN #24 tablet 08/08/20 Unknown Rx 10/325] Ondansetron [Zofran Odt] 4 mg PO Q4HR PRN #20 tab.rapdis 08/08/20 Unknown Rx Allergies Allergy/AdvReac Type Severity Reaction Status Date / Time No Known Allergies Allergy Verified 10/11/21 20:06 ED Review of Systems ROS: Stated complaint: BLOOD PRESSURE HIGH Other details as noted in HPI Constitutional: malaise. denies: chills, fever Eyes: denies: eye pain, eye discharge, vision change ENT: denies: ear pain, throat pain Respiratory: cough. denies: shortness of breath, wheezing Cardiovascular: denies: chest pain, palpitations, dyspnea on exertion, paroxysm al nocturnal dyspnea Endocrine: no symptoms reported. denies: excessive sweating, flushing, increased hunger, increased thirst, increased urine Gastrointestinal: denies: abdominal pain, nausea, vomiting, diarrhea Genitourinary: denies: urgency, dysuria, frequency, hematuria, discharge Musculoskeletal: arthralgia. denies: back pain, joint swelling Skin: denies: rash, lesions Neurological: vertigo. denies: headache, weakness, numbness, paresthesias, confusion Psychiatric: denies: anxiety, depression Hematological/Lymphatic: denies: easy bleeding, easy bruising ED Past Medical Hx - Past Medical History Previous Medical History?: Yes Hx Hypertension: Yes Hx Heart Attack/AMI: No Hx Diabetes: Yes Hx Deep Vein Thrombosis: (unknown) Hx GERD: Yes (NO REGULAR MEDS) Hx Liver Disease: No Hx Renal Disease: No Hx Arthritis: Yes Hx Headaches / Migraines: Yes Hx Asthma: Yes (INHALER PRN) Hx HIV: No Additional medical history: HIGH CHOLESTEROL - Surgical History Past Surgical History?: Yes Hx Pacemaker: No Hx Internal Defibrillator: No Additional Surgical History: TUBAL LIGATION. POLYPS FROM THROAT REMOVED - Social History Smoking Status: Never Smoker Substance Use Type: None - Medications Home Medications: Home Medications Medication Instructions Recorded Confirmed Last Taken Type Insulin NPH/Regular [NovoLIN 70/30] 35 unit SQ QHS 03/28/17 07/22/20 03/04/19 09:00 History metFORMIN [Glucophage] 1,000 mg PO BID 03/28/17 07/22/20 03/04/19 09:00 History Albuterol Sulfate [Proventil Hfa] 2 puff IH PRN PRN 02/24/19 07/22/20 Unknown History AtorvaSTATin [Lipitor] 20 mg PO QHS 02/24/19 07/22/20 03/04/19 21:00 History Insulin NPH Hum/Reg Insulin Hm 40 unit SQ QAM 02/24/19 07/22/20 03/04/19 09:00 History [Relion Novolin 70-30 Vial] glipiZIDE [Glucotrol] 10 mg PO BID 02/24/19 07/22/20 03/04/19 18:00 History hydroCHLOROthiazide [HCTZ] 25 mg PO QDAY 02/24/19 07/22/20 03/04/19 09:00 History Oxycodone HCl/Acetaminophen 1 each PO Q6HR PRN #30 tablet 03/09/19 07/22/20 Unknown Rx [Percocet 7.5/325 mg] dexAMETHasone [Dexamethasone] 6 mg PO DAILY #4 tablet 07/29/20 Unknown Rx HYDROcodone/APAP 10-325 [Vici 1 each PO Q6HR PRN #24 tablet 08/08/20 Unknown Rx 10/325] Ondansetron [Zofran Odt] 4 mg PO Q4HR PRN #20 tab.rapdis 08/08/20 Unknown Rx ED Physical Exam - General Limitations: No Limitations General appearance: alert, in no apparent distress - Head Head exam: Present: normocephalic - Eye Eye exam: Present: normal appearance, PERRL, EOMI Pupils: Present: normal accommodation - ENT ENT exam: Present: mucous membranes moist - Neck Neck exam: Present: normal inspection, full ROM. Absent: tenderness - Respiratory Respiratory exam: Present: normal lung sounds bilaterally. Absent: respiratory distress, wheezes, stridor, chest wall tenderness - Cardiovascular Cardiovascular Exam: Present: regular rate, normal rhythm, normal heart sounds. Absent: systolic murmur, diastolic murmur, rubs, gallop - GI/Abdominal GI/Abdominal exam: Present: soft, normal bowel sounds. Absent: distended, tenderness, guarding, rebound, rigid, bruit, hernia - Rectal Rectal exam: Present: deferred - Extremities Exam Extremities exam: Present: normal inspection, full ROM, normal capillary refill. Absent: tenderness - Back Exam Back exam: Present: normal inspection, full ROM. Absent: CVA tenderness (R), CVA tenderness (L) - Neurological Exam Neurological exam: Present: alert, oriented X3, CN II-XII intact, normal gait - Expanded Neurological Exam Expanded Patient oriented to: Present: person, place, time Speech: Present: fluid speech Motor strength exam: RUE: 5, LUE: 5, RLE: 5, LLE: 5 Best Eye Response ([place]): (4) open spontaneously Best Motor Response ([place]): (6) obeys commands Best Verbal Response ([place]): (5) oriented [place] Total: 15 - Psychiatric Psychiatric exam: Present: normal affect, normal mood - Skin Skin exam: Present: warm, dry, intact, normal color. Absent: rash ED Course Vital Signs 10/11/21 19:53 Temperature 97.9 F Pulse Rate 78 Respiratory 18 Rate Blood Pressure 173/89 O2 Sat by Pulse 97 Oximetry ED Medical Decision Making - Lab Data Result diagrams: 10/11/21 23:46 10/11/21 23:46 Labs 10/11/21 10/11/21 10/12/21 23:46 23:46 Unknown WBC 5.3 RBC 4.85 Hgb 12.5 Hct 38.5 MCV 79 MCH 26 L MCHC 33 RDW 14.3 Plt Count 325 Lymph % (Auto) 39.2 H [place] % (Auto) 8.8 H Eos % (Auto) 1.9 Baso % (Auto) 0.6 Lymph # (Auto) 2.1 [place] # (Auto) 0.5 Eos # (Auto) 0.1 Baso # (Auto) 0.0 Seg Neutrophils % 49.5 Seg Neutrophils # 2.6 Sodium 135 L Potassium 3.7 Chloride 96.5 L Carbon Dioxide 25 Anion Gap 17 BUN 20 H Creatinine 0.9 Estimated GFR > 60 BUN/Creatinine Ratio 22 Glucose 308 H Calcium 9.3 Total Bilirubin 0.40 AST 13 ALT 24 Alkaline Phosphatase 115 Total Protein 7.8 Albumin 4.0 Albumin/Globulin Ratio 1.1 Urine Color Yellow Urine Turbidity Clear Urine pH 5.0 Ur Specific [place] 1.010 Urine Protein <15 mg/dl Urine Glucose (UA) >=500 Urine Ketones Neg Urine Blood Neg Urine Nitrite Neg Urine Bilirubin Neg Urine Urobilinogen < 2.0 Ur Leukocyte Esterase Neg Urine WBC (Auto) 2.0 Urine RBC (Auto) 1.0 U Epithel Cells (Auto) 5.0 - Radiology Data Radiology results: report reviewed, image reviewed CHEST 2 VIEWS INDICATION / CLINICAL INFORMATION: cough fever. COMPARISON: None available. FINDINGS: SUPPORT DEVICES: None. HEART / MEDIASTINUM: No significant abnormality. LUNGS / PLEURA: No significant pulmonary or pleural abnormality. No pneumothorax. BONES: No significant osseous abnormality. ADDITIONAL FINDINGS: No significant additional findings. IMPRESSION: 1. No active cardiopulmonary disease. Signer Name: Kobi Abbott II, MD Signed: 10/12/2021 12:16 AM Workstation Name: [id number] Transcribed By: GAGE Dictated By: KOBI ABBOTT II, MD Electronically Authenticated By: KOBI ABBOTT II, MD Signed Date/Time: 10/12/2115 DD/ TD/TT: - Medical Decision Making Chest x-ray normal, labs noted, glucose 305, patient given normal saline 1 L IV. Patient has all medications at home including antihyperglycemics. Patient advised to take medications as prescribed. Repeat Accu-Chek 203. Patient will be DC'd to home upon completion of IV fluids. Patient will follow with primary care doctor in a.m. Patient verbalized agreement understanding with discharge plan. Patient DC'd home in stable condition at this time. Critical care attestation.: If time is entered above; I have spent that time in minutes in the direct care of this critically ill patient, excluding procedure time. ED Disposition Clinical Impression: Hyperglycemia Disposition: 01 HOME / SELF CARE / HOMELESS Is pt being admited?: No Does the pt Need Aspirin: No Condition: Stable Instructions: Hyperglycemia, Blood Glucose Monitoring, Adult Additional Instructions: Medications as prescribed, follow-up with your doctor tomorrow. Return to emergency department should symptoms worsen. [facility] [Primary Care Provider] - 3-5 Days ISACC MONREAL MD [Staff Physician] - 3-5 Days Time of Disposition: 03:41
--- NOTE | 2021-10-12 00:20 | XRay Report ---
CHEST 2 VIEWS INDICATION / CLINICAL INFORMATION: cough fever. COMPARISON: None available. FINDINGS: SUPPORT DEVICES: None. HEART / MEDIASTINUM: No significant abnormality. LUNGS / PLEURA: No significant pulmonary or pleural abnormality. No pneumothorax. BONES: No significant osseous abnormality. ADDITIONAL FINDINGS: No significant additional findings. IMPRESSION: 1. No active cardiopulmonary disease. Signer Name: Mickey Abbott II, MD Signed: 10/12/2021 12:16 AM Workstation Name: [id number]
[2021-10-12 00:29] LABS: Alanine Aminotransferase 24 units/L (7-56); BUN/Creatinine Ratio 22; Blood Urea Nitrogen 20 mg/dL (7-17); Calcium 9.3 mg/dL (8.4-10.2); Hemolysis Index 8
[2021-10-12 00:44] LABS: Basophils % (Auto) 0.6 % (0.0-1.8); Eosinophils # (Auto) 0.1 K/mm3 (0.0-0.4); Eosinophils % (Auto) 1.9 % (0.0-4.3); Hematocrit 38.5 % (30.3-42.9); Hemoglobin 12.5 gm/dl (10.1-14.3); Lymphocytes # (Auto) 2.1 K/mm3 (1.2-5.4); Lymphocytes % (Auto) 39.2 % (13.4-35.0); Mean Corpuscular HGB Conc 33 % (30-34); Mean Corpuscular Volume 79 fl (79-97); Monocytes # (Auto) 0.5 K/mm3 (0.0-0.8); Monocytes % (Auto) 8.8 % (0.0-7.3); Platelet Count 325 K/mm3 (140-440); Red Blood Count 4.85 M/mm3 (3.65-5.03); Red Cell Distribution Width 14.3 % (13.2-15.2)
[2021-10-12] MEDS ORDERED: SODIUM CHLORIDE 0.9% 1000 ML 1,000 ML IV ONE (01:20)
[2021-10-12 03:14] LABS: Bilirubin,Urine NEG (Negative); Blood,Urine NEG (Negative); Color,Urine Yellow (Yellow); Protein,Urine <15 mg/dL mg/dL (Negative); Urobilinogen,Urine < 2.0 mg/dL (<2.0)
== END 2021-10-12 03:51 | disposition home or self-care (01) ==
LOC: ED 19:09
DX: R73.9 Hyperglycemia, unspecified (principal); I10 Essential (primary) hypertension; M19.90 Unspecified osteoarthritis, unspecified site; G43.909 Migraine, unspecified, not intractable, without status migrainosus; J45.909 Unspecified asthma, uncomplicated; Z79.899 Other long term (current) drug therapy; Z98.890 Other specified postprocedural states
CPT/HCPCS: 36415; 71046; 80053; 81001; 82962; 85025; 96360; 99284; J7030; Q0162